=== PATIENT | male | born 1955 | race Caucasian/White ===

== ENCOUNTER 2018-12-24 11:24 | Inpatient (IN) ==
--- NOTE | 2018-12-24 11:50 | PROVIDER DOCUMENTATION ---
HPI-General Adult - General Chief Complaint: Dizziness Stated Complaint: DIZZINESS,LOW BP,DIARRHEA Time Seen by Provider: 12/24/18 11:44 Source: patient Allergies/Adverse Reactions: Patient Allergies Allergy/AdvReac Type Severity Reaction Status Date / Time bupropion [From Wellbutrin] Allergy RASH Verified 06/26/18 14:04 cephalexin monohydrate * Allergy RASH Verified 06/26/18 14:04 [From Keflex] Home Medications: Home Medication List Medication Instructions Recorded Confirmed Last Taken Type Metoprolol [Lopressor] 50 mg PO DAILY 01/18/18 01/18/18 01/17/18 16:00 History Ciclopirox Olamine [Ciclopirox] 30 gm TP BID 12 Days cream..g. 06/02/18 Unknown Rx Furosemide [Lasix] 06/02/18 Unknown History Meloxicam [Mobic] 15 mg PO DAILY #20 tab 06/26/18 Unknown Rx Past History - Adult - PAST MEDICAL HISTORY-ADULT Major Childhood Illnesses: reports: denies history Cardiovascular: reports: HTN, PVD Respiratory: reports: denies history Gastrointestinal: reports: denies history Obstetrical/Gynecological: reports: denies history Genitourinary: reports: prostate cancer Musculoskeletal: reports: denies history Neurological: reports: CVA, Seizures/Epilepsy Endocrine/Immune: reports: denies history Other Conditions: reports: denies history - PRIOR SURGERIES/PROCEDURES Surgical/Procedure History: reports: reviewed, not pertinent - IMMUNIZATION STATUS Childhood Immunizations: See Nurse Assessment Flu Vaccine: See Nurse Assessment - FAMILY HISTORY Family History: reviewed, not pertinent Progress - PLAN OF CARE/RESULTS Progress/Plan/Lab Results: Vital Signs - 8 hr 12/24/18 11:30 Temperature 98.1 F Pulse Rate 91 H Respiratory Rate 16 Blood Pressure 107/75 O2 Sat by Pulse Oximetry 98 Departure - Departure Referrals and Follow-Ups: Roger Victor MD [Primary Care Provider] - Attestation - Physician/ AYAZ Attestation Patient care was provided by Advanced Practice Provider:: Yes Advanced Practice Provider:: Josh Denton Advanced Practice Provider documentation review:: The Mid-level provider docu mentation, treatment plan and medical decision making was reviewed by the physician who agrees with all treatment and medical decision making by the P. The physician spent face to face time with patient:: No Advanced Practice Provider documentation review:: Supervising physician onsite and consulted in the evaluation and care of this patient. The physician did not have a face to face encounter with the patient.
[2018-12-24] MEDS ORDERED: NS 1,000 ML IV ONE (11:51)
--- NOTE | 2018-12-24 12:06 | Diag Imaging Result Doc PS360 ---
EXAM: CHEST-PORTABLE HISTORY: dizzy TECHNIQUE: Portable chest COMPARISON: 11/10/2017 FINDINGS: The lungs are well expanded. The heart is not enlarged. The vessels are not distended. There are no infiltrates. No effusion identified. There are multiple old rib fractures as well as prior surgery to the lower neck and right clavicle IMPRESSION: No acute abnormality Electronically signed by Ronal Flowers 12/24/2018 12:04 PM
--- NOTE | 2018-12-24 12:22 | PROVIDER DOCUMENTATION ---
This chart was entered by Kylee Mak Scribe, acting as scribe for Josh Denton CRNP. HPI-General Adult - General Chief Complaint: Dizziness Stated Complaint: DIZZINESS,LOW BP,DIARRHEA Time Seen by Provider: 12/24/18 11:44 Source: patient Allergies/Adverse Reactions: Patient Allergies Allergy/AdvReac Type Severity Reaction Status Date / Time bupropion [From Wellbutrin] Allergy RASH Verified 12/24/18 14:17 cephalexin monohydrate * Allergy RASH Verified 12/24/18 14:17 [From Keflex] Home Medications: Home Medication List Medication Instructions Recorded Confirmed Last Taken Type Metoprolol [Lopressor] 50 mg PO DAILY 01/18/18 01/18/18 01/17/18 16:00 History Ciclopirox Olamine [Ciclopirox] 30 gm TP BID 12 Days cream..g. 06/02/18 Unknown Rx Furosemide [Lasix] 06/02/18 Unknown History Meloxicam [Mobic] 15 mg PO DAILY #20 tab 06/26/18 Unknown Rx - History of Present Illness -Gen Adult Nature of Presenting Problems: Patient is a 63 year old male who presents to the ED with dizziness and blurred vision that has been present for 1 week. History of CVA and UT. States was sent to ED by PCP. Does not report headache. Location of Pain/Injury: reports: none Pain Radiation: reports: no radiation Quality of Pain: reports: none Severity: reports: mild Onset/Duration: reports: 1 week ago Timing: reports: still present Context/Activities at Onset: reports: light activity Modifying Factors: improves with: nothing Associated Symptoms: reports: dizziness, EENT symptoms (blurred vision) Similar Symptoms Previously?: Yes Recently seen or treated by another doctor?: Yes Review of Systems - Adult - REVIEW OF SYSTEMS - ADULT Constitutional: reports: no symptoms reported. denies: chills, fever, fatique Eyes: reports: see HPI, blurred vision. denies: decreased vision, double vision Ears, Nose, Mouth & Throat: reports: no symptoms reported Cardiovascular: reports: no symptoms reported Respiratory: reports: no symptoms reported Gastrointestinal: reports: no symptoms reported Genitourinary: reports: no symptoms reported Musculoskeletal: reports: no symptoms reported Integumentary: reports: no symptoms reported Neurological: reports: see HPI, dizziness/vertigo (dizziness). denies: headache/migraines, numbness, seizure, syncope Psychiatric: reports: no symptoms reported Endocrine: reports: no symptoms reported Hematologic/Lymphatic: reports: no symptoms reported Allergic/Immunologic: reports: no symptoms reported All Other Systems: Reviewed and Negative Past History - Adult - PAST MEDICAL HISTORY-ADULT Review of Records: reports: Nursing Assessment Review, Medications Reviewed, Social history reviewed & non-contributory. Major Childhood Illnesses: reports: denies history Cardiovascular: reports: HTN, UT, PVD Respiratory: reports: denies history Gastrointestinal: reports: denies history Obstetrical/Gynecological: reports: denies history Genitourinary: reports: prostate cancer Musculoskeletal: reports: denies history Neurological: reports: CVA, Seizures/Epilepsy Psychiatric: reports: denies history Endocrine/Immune: reports: denies history Other Conditions: reports: denies history - PRIOR SURGERIES/PROCEDURES Surgical/Procedure History: reports: reviewed, not pertinent, hernia repair - IMMUNIZATION STATUS Childhood Immunizations: See Nurse Assessment Flu Vaccine: See Nurse Assessment - FAMILY HISTORY Family History: reviewed, not pertinent - SOCIAL HISTORY Smoking: cigarettes, less than 1 pack/day Provider spent 3-5 mins advising pt. on dangers of tobacco.: Discussed manners to quit use, and f/u contacts for add'l counseling. Substance Use: alcohol Alcohol Use Frequency: occasionally Number of drinks per typical drinking period:: 3-4 drinks Physical Exam-General - PHYSICAL EXAM-ADULT Initial Vital Signs Reviewed: Yes - CONSTITUTIONAL General Appearance: alert, no apparent distress. negative: lethargic, slow to respond - HEAD, EARS, NOSE, MOUTH & THROAT HENMT: TM obscurred by cerumen (bilateral). negative: angioedema, hearing deficit - NECK Neck: non-tender, normal inspection. negative: tender midline - RESPIRATORY Respiratory: chest non-tender, lungs clear, normal breath sounds. negative: crackles, rales, rhonchi - CARDIOVASCULAR Cardiovascular: normal peripheral pulses, regular rate, rhythm. negative: tachycardia, systolic murmur - GASTROINTESTINAL (ABDOMEN) Abdominal Exam: normal bowel sounds, non tender, soft. negative: guarding, rebound - MUSCULOSKELETAL Extremity: non-tender, normal inspection. negative: deformity, swelling - SKIN Integumentary: normal color, normal turgor, warm/dry. negative: cyanosis, erythema, jaundice - NEUROLOGIC Neurologic: grossly normal. negative: aphasia, facial droop - PSYCHIATRIC Psych/Mental Status: normal mood/affect, oriented x 3. negative: paranoid, tearful Progress - PLAN OF CARE/RESULTS Progress/Plan/Lab Results: Vital Signs - 8 hr 12/24/18 11:30 Temperature 98.1 F Pulse Rate 91 H Respiratory Rate 16 Blood Pressure 107/75 O2 Sat by Pulse Oximetry 98 Orders Category Date Time Status FSBS [Finger Stick Blood Sugar (ED)] DIRECTED Care 12/24/18 11:50 Active Orthostatic Vital Signs NOW Care 12/24/18 11:50 Active Saline Loc NOW Care 12/24/18 11:50 Active CHEST-PORTABLE [RAD] Stat Exams 12/24/18 11:[address] HEAD W/O CONTRAST [CT] Stat Exams 12/24/18 12:11 Ordered CBC WITH ELECTRONIC DIFF [HEME] Stat Lab 12/24/18 11:50 Uncollected CK PROFILE [SP CHEM] Stat Lab 12/24/18 11:50 Uncollected COMPREHENSIVE METABOLIC PANEL [CHEM] Stat Lab 12/24/18 11:50 Uncollected PRO B-NATRIURETIC PEPTIDE Stat Lab 12/24/18 11:50 Uncollected TROPONIN T Stat Lab 12/24/18 11:50 Uncollected URINALYSIS W/POSS RFLX CULT [URINALYSIS] Stat Lab 12/24/18 11:50 Uncollected 0.9% Sodium Chloride Inj [Ns] 1,000 ml Med 12/24/18 11:51 Active IV 125 mls/hr EKG [EKG] Stat Ther 12/24/18 11:50 Ordered Laboratory Tests 12/24/18 12/24/18 12/24/18 12:47 12:47 12:47 WBC 8.85 RBC 3.93 L Hgb 14.1 Hct 37.8 L MCV 96.2 MCH 35.9 H MCHC 37.3 H RDW Std Deviation 13.2 Plt Count 106 L MPV 11.4 H Immature Gran % (Auto) 0.7 H Neut % (Auto) 65.0 Lymph % (Auto) 10.3 L [place] % (Auto) 23.8 H Eos % (Auto) 0.1 Baso % (Auto) 0.1 Immature Gran # (Auto) 0.06 H Neut # (Auto) 5.75 Lymph # (Auto) 0.91 L [place] # (Auto) 2.11 H Eos # (Auto) 0.01 Baso # (Auto) 0.01 Sodium 125 L Potassium 3.0 L Chloride 87 L Carbon Dioxide 27 Anion Gap 11 BUN 9 Creatinine 0.4 L Estimated GFR/1.73 m2 > 60 BUN/Creatinine Ratio 23 Glucose 82 Calculated Osmolality 249 Calcium 8.0 L Total Bilirubin 4.98 H AST 83 H ALT 60 H Alkaline Phosphatase 96 Creatine Kinase 208 H Creatine Kinase Index 2.7 H CK-MB (CK-2) 5.64 H Troponin T [id number] Pept 535 H Total Protein 5.5 L Albumin 2.9 L Globulin 2.6 Albumin/Globulin Ratio 1.1 Urine Source Urine Color Urine Turbidity Urine pH Ur Specific [place] Urine Protein Ur Glucose (Stick) Ur Ketones (Stick) Urine Blood Urine Nitrite Urine Bilirubin Urobilinogen Dipstick Urine Leukocytes Urine WBC (Auto) Urine RBC (Auto) U Epithel Cells (Auto) Urine Bacteria (Auto) 12/24/18 12/24/18 12:47 12:57 WBC RBC Hgb Hct MCV MCH MCHC RDW Std Deviation Plt Count MPV Immature Gran % (Auto) Neut % (Auto) Lymph % (Auto) [place] % (Auto) Eos % (Auto) Baso % (Auto) Immature Gran # (Auto) Neut # (Auto) Lymph # (Auto) [place] # (Auto) Eos # (Auto) Baso # (Auto) Sodium Potassium Chloride Carbon Dioxide Anion Gap BUN Creatinine Estimated GFR/1.73 m2 BUN/Creatinine Ratio Glucose Calculated Osmolality Calcium Total Bilirubin AST ALT Alkaline Phosphatase Creatine Kinase Creatine Kinase Index CK-MB (CK-2) Troponin T < 0.010 [id number]-Tygzpibvdze Pept Total Protein Albumin Globulin Albumin/Globulin Ratio Urine Source CLEAN CATCH Urine Color ORANGE Urine Turbidity CLEAR Urine pH 7.5 Ur Specific [place] 1.000 Urine Protein NEGATIVE Ur Glucose (Stick) NEGATIVE Ur Ketones (Stick) TRACE A Urine Blood NEGATIVE Urine Nitrite NEGATIVE Urine Bilirubin NEGATIVE Urobilinogen Dipstick 12 A Urine Leukocytes NEGATIVE Urine WBC (Auto) <10 Urine RBC (Auto) <10 U Epithel Cells (Auto) <10 Urine Bacteria (Auto) NEGATIVE Discussed results and plan of care with patient. Patient agrees with plan and verbalizes understanding. Result Diagrams: 12/24/18 12:47 12/24/18 12:47 - EKG 1 Time of EKG reading by physician:: 12:48 EKG Read and Signed by:: Bereket Marina EKG Interpretation (*Must complete 3 of following elements*): Abnormal Rate: 86 Rhythm: sinus rhythm with premature atrial complexes with aberrant conduction QRS: LBB [place] Interval: normal Comments: possible left atrial enlargement. - XRAY 1 XRAY Study: Chest ([facility] [address], [address], [place] [address] Department of Imaging Patient: JACI MANZANARES RAYADM Date: 12/24/18MR#: [id number] : 1955DM Status: PRE ERAcct#: [id number] Age/Sex: 63/MRoom/Bed: Loc: ED Ordering Physician: Josh Denton Family Ph ysician: Roger Victor MD Reason for Procedure: dizzy Signed EXAM: CHEST- PORTABLE HISTORY: dizzy TECHNIQUE: Portable chest COMPARISON: 11/10/2017 FINDINGS: The lungs are well expanded. The heart is not enlarged. The vessels are not distended. There are no infiltrates. No effusion identified. There are multiple old rib fractures as well as prior surgery to the lower neck and right clavicle IMPRESSION: No acute abnormality Electronically signed by Ronal Flowers 12/24/2018 12:04 PM 12/24/18 1204 Interpreting Physician: Ronal Flowers MD Dictated Date/Time: 12/24/18 1203 cc: Josh Denton; Roger Victor MD) XRAY Interpretation: See note - CT/MRI 1 CT Study: Head ([facility] [address], [address], [place] [address] Department of Imaging Patient: JACI MANZANARES RAYADM Date: 12/24/18MR#: [id number] : 4ADM Status: PRE ERAt#: [id number] Age/Sex: 63/MRoom/Bed: Loc: ED Ordering Physician: Josh Denton Family Physician: Roger Victor MD Reason for Procedure: dizziness Signed EXAM: CT HEAD W/O CONTRAST HISTORY: dizziness TECHNIQUE: CT head without contrast COMPARISON: 07/04/2016 FINDINGS: No parenchymal hemorrhage. No epidural or subdural hematoma. No subarachnoid hemorrhage. 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 This is unchanged from the prior study. Mild atrophy. No mass identified on this noncontrasted exam. No hydrocephalus. No sinus opacification. IMPRESSION: 1.No hemorrhage 2.Old right occipital infarct This exam was performed using automated exposure control, adjustment of mA or kV according to patient size, and/or use of iterative reconstruction technique. Electronically signed by Ronal Flowers 12/24/2018 12:36 PM 12/24/18 1236 Interpreting Physician: Ronal Flowers MD Dictated Date/Time: 12/24/18 1235 cc: Josh Denton; Roger Victor MD) CT Results: See note - CONSULTS/PCP/HOSPITALIST Notification #1 *Consult/PCP/Hospitalist*: Fatimah Colón Time Discussed: 14:24 Reason/Comments: Admission Consult Disposition: Will see in ED, Admit Departure - Departure Date of Disposition Decision: 12/24/18 Time of Disposition Decision: 14:08 DIAGNOSIS: Hyponatremia, Hypokalemia, Dehydration, Hyperbilirubinemia, Elevated liver enzymes Disposition: ADMITTED INPATIENT 09 Certified Medical Emergency: Emergent Condition: Stable Referrals and Follow-Ups: Roger Victor MD [Primary Care Provider] - - Critical Care Note This patient required my direct & personal management of CC.: No Attestation - Physician/ AYAZ Attestation Patient care was provided by Advanced Practice Provider:: Yes Advanced Practice Provider:: Josh Denton Advanced Practice Provider documentation review:: The Mid-level provider documentation, treatment plan and medical decision making was reviewed by the physician who agrees with all treatment and medical decision making by the MLP. The physician spent face to face time with patient:: No Advanced Practice Provider documentation review:: Supervising physician onsite and consulted in the evaluation and care of this patient. The physician did not have a face to face encounter with the patient. This chart was documented by the indicated scribe, (Kylee Mak Scribe) and accurately reflects the services I performed and decisions made by me, Josh Denton CRNP, as attested by the provider's signature.
--- NOTE | 2018-12-24 12:39 | Diag Imaging Result Doc PS360 ---
EXAM: CT HEAD W/O CONTRAST HISTORY: dizziness TECHNIQUE: CT head without contrast COMPARISON: 07/04/2016 FINDINGS: No parenchymal hemorrhage. No epidural or subdural hematoma. No subarachnoid hemorrhage. Old right occipital infarct with encephalomalacia. This is unchanged from the prior study. Mild atrophy. No mass identified on this noncontrasted exam. No hydrocephalus. No sinus opacification. IMPRESSION: 1.No hemorrhage 2.Old right occipital infarct This exam was performed using automated exposure control, adjustment of mA or kV according to patient size, and/or use of iterative reconstruction technique. Electronically signed by Ronal Flowers 12/24/2018 12:36 PM
--- NOTE | 2018-12-24 12:54 | EKG Report ---
Test Performed on : 12/24/2018 12:48:57 PM Test Reason : dizzy Blood Pressure : / mmHG Vent. Rate : 086 BPM Atrial Rate : 086 BPM P-R Int : 172 ms QRS Dur : 150 ms QT Int : 422 ms P-R-T Axes : 062 031 168 degrees QTc Int : 504 ms Sinus rhythm. with premature atrial complexes. with aberrant conduction. Possible Left atrial enlargement Left bundle branch block Abnormal ECG When compared with ECG of 14-DEC-2017 08:15, aberrant conduction. is now present Nonspecific T wave abnormality now evident in Inferior leads Unconfirmed Result
[2018-12-24 13:04] LABS: URINE SOURCE CLEAN CATCH
[2018-12-24 13:17] LABS: BILIRUBIN URINE NEGATIVE (NEGATIVE); BLOOD URINE NEGATIVE (NEGATIVE); COLOR ORANGE; GLUCOSE URINE NEGATIVE (NEGATIVE); KETONE URINE TRACE mg/dL (NEGATIVE); LEUKOCYTES URINE NEGATIVE (NEGATIVE); NITRITE URINE NEGATIVE (NEGATIVE); PH URINE 7.5; PROTEIN URINE NEGATIVE (NEGATIVE); TURBIDITY URINE CLEAR (CLEAR); UROBILINOGEN URINE 12 mg/dL (NORMAL)
[2018-12-24 13:18] LABS: UR EPITHELIAL CELLS <10 /HPF (<10); URINE BACTERIA NEGATIVE /HPF; URINE RBC <10 /HPF (<10); URINE WBC <10 /HPF (<10)
[2018-12-24 13:19] LABS: BASO# 0.01 X1000 (0.0-0.2); BASO% 0.1 % (0.0-0.8); EOS# 0.01 X1000 (0.0-0.7); EOS% 0.1 % (0.0-10.0); HEMATOCRIT 37.8 % (42.0-52.0); HEMOGLOBIN 14.1 g/dL (14.0-18.0); IMM GRAN# 0.06 X1000 (0.0-0.04); IMM GRAN% 0.7 % (0.0-0.5); LYMPH# 0.91 X1000 (1.2-3.4); LYMPH% 10.3 % (20.5-51.1); MCH 35.9 PG (27-31); MCHC 37.3 g/dL (33-37); MCV 96.2 FL (81-99); MONO# 2.11 X1000 (0.11-0.59); MONO% 23.8 % (1.7-9.3); MPV 11.4 FL (7.4-10.4); NEUT# 5.75 X1000 (1.4-6.5); PLT 106 X1000 (130-400); RBC 3.93 XMIL (4.7-6.1); RDW 13.2 % (11.5-14.5); WBC 8.85 X1000 (4.8-10.8)
[2018-12-24 13:25] LABS: ESTIMATED GFR > 60
[2018-12-24 13:34] LABS: AGAP 11; ALB/GLOB RATIO 1.1; ALBUMIN 2.9 g/dL (3.5-5.0); ALKALINE PHOSPHATASE 96 U/L (32-122); BUN 9 mg/dL (8-22); CHLORIDE 87 mmol/L (98-107); CK PROFILE 208 U/L (24-204); COSMO 249; CREATININE 0.4 mg/dL (0.7-1.2); GLUCOSE 82 mg/dL (70-104); GOT 83 U/L (10-34); GPT 60 U/L (10-44); SODIUM 125 mmol/L (136-145); TCO2 27 mmol/L (25-35); TOTAL BILIRUBIN 4.98 mg/dL (0.20-1.00); TOTAL PROTEIN 5.5 g/dL (6.3-8.3)
[2018-12-24 13:47] LABS: CK INDEX 2.7 (0.0-2.5); CK-MB 5.64 ng/mL (0.0-5.0)
[2018-12-24] MEDS ORDERED: KLOR-CON PO ONE (14:08)
[2018-12-24 14:50] LABS: ALLEN TEST YES; BE 2.5 mmoll (-3.0-3.0); BLOOD TYPE ARTERIAL; HCO3-(ACT) 26.8 mmoll (20.0-26.0); PCO2(98.6) 37 mmHg (35-45); PO2(98.6) 75 mmHg (60-100); SAMPLE BLOOD; pH(98.6) 7.46 (7.35-7.45)
[2018-12-24 14:51] LABS: MODALITY ROOM AIR
[2018-12-24] MEDS ORDERED: POTASSIUM CHLORIDE 20 MEQ/SWI 20 MEQ/100 ML IVPB IV SCH (15:00)
--- NOTE | 2018-12-24 15:52 | HISTORY AND PHYSICAL ---
PRIMARY CARE PHYSICIAN: Dr. Victor. CHIEF COMPLAINT: Dizziness and blurred vision x1 week that have progressively. HISTORY OF PRESENTING ILLNESS: This is a 63-year-old male, who presents to [facility] with complaints of dizziness and blurred vision for the past week that have progressively worsened. Was seen by primary care physician today and sent to the emergency room for evaluation. Workup showed a blood pressure orthostatic of lying 133/92, sitting 101/77, standing 77/50. His laboratory data showed a sodium of 125, potassium 3, chloride 87, total bilirubin was 4.98, AST of 83, ALT 68. Creatine kinase was 208 with a CK-MB of 5.64 and a negative troponin of less than 0.010. The patient states that he does drink alcohol approximately 12 beers per week, smokes a half to 1 pack of cigarettes a day and has done so for the past 20 years so he is being admitted for further evaluation and treatment. PAST MEDICAL HISTORY: CVA, [place], hypertension, peripheral vascular disease, and seizures. PAST SURGICAL HISTORY: Prostatectomy, hernia repair, and a work-related incident requiring a right wrist, right elbow, and right shoulder to have rods placed. FAMILY HISTORY: Reviewed and noncontributory. SOCIAL HISTORY: Currently lives alone. Smokes one-half to 1 pack of cigarettes a day and has done so for the past 20 years. Drinks a 12-pack of beer weekly and denied any illicit drug use. ALLERGIES: Bupropion and cephalexin. HOME MEDICATIONS: Will need to be updated, reviewed, and restarted as appropriate. We will place an order for Nursing to update and confirm home medications. DIAGNOSTIC STUDIES: White blood cell count of 8.85, hemoglobin 14.1, hematocrit 37.8, platelets 106,000. Sodium 125, potassium 3, chloride 87, CO2 of 27, BUN of 9, creatinine 0.4, glucose 82, total bilirubin of 4.98, AST of 83, ALT 62. Creatine kinase of 208, CK-MB of 5.64, troponin of less than 0.010. ProBNP of 535. Urinalysis was negative. CT of the head showed no hemorrhage and the old right occipital infarct. Chest x-ray showed no acute abnormality. EKG showed sinus rhythm with premature atrial complex with an aberrant conduction at 86. REVIEW OF SYSTEMS: He denied any fever, chills. He has had blurred vision, dizziness, felt lightheaded. Denied any chest pain, coughing, shortness of breath. Denied any abdominal pain, constipation, diarrhea, or burning or hurting with urination history. PHYSICAL EXAMINATION: VITAL SIGNS: On arrival he had a temperature of 98.1 degrees, a pulse of 91, respirations 16, blood pressure 107/75, saturating 98% on room air. We checked orthostatic blood pressures that showed a lying of 133/92 with a pulse of 93, sitting 101/70 with a pulse of 92, standing 77/50 with a pulse of 98. GENERAL: This is a 63-year-old male, who is sitting up in the bed and answers questions appropriately. HEMNT: Normocephalic, atraumatic. Normal ENT inspection. Oropharynx and nares are clear. EYES: Pupils are equal, round, and reactive to light and accommodation. Extraocular movements are intact. NECK: Normal inspection. Normal range of motion. LUNGS: Clear to auscultation bilaterally with equal lung expansion and chest wall movement. HEART: With regular rate and rhythm. No murmurs, rubs, or gallops. ABDOMEN: Soft, nontender, nondistended. Bowel sounds are present x4 quadrants. MUSCULOSKELETAL: He has 4/5 strength x4 extremities. NEUROLOGICAL: The cranial nerves 2 through 12 appear grossly intact. ASSESSMENT: 1. Orthostatic hypotension. 2. Hyponatremia. 3. Hypokalemia. 4. Elevated liver function tests. 5. Ethanol abuse. 6. Tobacco abuse. PLAN: He will be admitted to the medical unit. We will place him on telemetry. O2 per protocol. Healthy heart diet. We are going to give him potassium chloride 20 mEq IV now and then repeat in [address] him on normal saline at [address] him on Tylenol 650 p.o. q.6 h. p.r.n., Zofran 4 mg IV q.4 h. p.r.n. Apply SCDs for DVT prophylaxis. I am going to place him on Ativan 1 mg IV q.4 h. p.r.n. for any alcohol withdrawal and recheck a CBC and a CMP in the a.m. Further orders after being seen by attending. Dictated by HAILEY Roth for Paul Colón MD cc: MD Fatimah Yousif CRNP Clement Okinedo, MD Patient seen and evaluated by me. I agree with the assessment and plan of the HAILEY. Dr. Colón. [facility]
[2018-12-24] MEDS ORDERED: TYLENOL PO PRN (16:01)
[2018-12-24] MEDS ORDERED: ATIVAN IV PRN (16:01)
[2018-12-24] MEDS ORDERED: ZOFRAN IV PRN (16:01)
[2018-12-24] MEDS: NS 1,000 ML IV SCH ×2 (18:14→23:19)
[2018-12-24] MEDS: POTASSIUM CHLORIDE 20 MEQ/SWI 20 MEQ/100 ML IVPB IV SCH (23:49)
[2018-12-25] MEDS: NS 1,000 ML IV SCH ×3 (00:18→17:08)
[2018-12-25] MEDS: POTASSIUM CHLORIDE 20 MEQ/SWI 20 MEQ/100 ML IVPB IV SCH ×3 (04:01→20:46)
[2018-12-25 07:23] LABS: BASO# 0.01 X1000 (0.0-0.2); BASO% 0.1 % (0.0-0.8); EOS# 0.05 X1000 (0.0-0.7); EOS% 0.6 % (0.0-10.0); HEMATOCRIT 34.5 % (42.0-52.0); HEMOGLOBIN 12.5 g/dL (14.0-18.0); IMM GRAN# 0.02 X1000 (0.0-0.04); IMM GRAN% 0.2 % (0.0-0.5); LYMPH# 1.26 X1000 (1.2-3.4); LYMPH% 15.7 % (20.5-51.1); MCH 35.6 PG (27-31); MCHC 36.2 g/dL (33-37); MCV 98.3 FL (81-99); MONO# 2.29 X1000 (0.11-0.59); MONO% 28.6 % (1.7-9.3); MPV 10.8 FL (7.4-10.4); NEUT# 4.38 X1000 (1.4-6.5); NEUT% 54.8 % (42.2-75.2); PLT 106 X1000 (130-400); RBC 3.51 XMIL (4.7-6.1); RDW 13.2 % (11.5-14.5); WBC 8.01 X1000 (4.8-10.8)
[2018-12-25 07:42] LABS: AGAP 9; ALBUMIN 2.4 g/dL (3.5-5.0); ALKALINE PHOSPHATASE 80 U/L (32-122); BUN 8 mg/dL (8-22); CALCIUM 7.5 mg/dL (8.8-10.2); CHLORIDE 96 mmol/L (98-107); COSMO 260; CREATININE 0.3 mg/dL (0.7-1.2); ESTIMATED GFR > 60; GLUCOSE 86 mg/dL (70-104); GOT 67 U/L (10-34); GPT 52 U/L (10-44); POTASSIUM 3.3 mmol/L (3.5-5.1); SODIUM 131 mmol/L (136-145); TCO2 26 mmol/L (25-35); TOTAL BILIRUBIN 3.64 mg/dL (0.20-1.00); TOTAL PROTEIN 4.7 g/dL (6.3-8.3)
[2018-12-25 08:11] LABS: LYMPHS 26 % (21-51); MONO 8 % (1-9); SEGS 64 % (42-75)
--- NOTE | 2018-12-25 15:19 | PROGRESS NOTE ---
DATE: 12/25/2018 SUBJECTIVE: Patient is awake. Sitting in a chair. Not in any obvious distress. OBJECTIVE: Vital signs: Temperature is 98 degrees, pulse 84, respiratory 16, blood pressure 117/78, oxygen saturation is 97%. HEENT: Patient is atraumatic, normocephalic. Cardiovascular system: S1, S2. Respiratory system: Occasional rhonchi noted. Abdomen: Soft, nontender. No masses felt. Extremities: No evidence of edema. Central nervous system: No obvious focal deficit noted. LABORATORY DATA: WBC is 8.01, hematocrit is 34.5, with a platelet count of 106,000. Sodium is 131, potassium is 3.3, chloride is 96, bicarb 26, BUN is 8, creatinine 0.3. ALT 52. ASSESSMENT AND PLAN: 1. Orthostatic hypertension, probably secondary to volume depletion. The patient had been on Lasix as well as metoprolol prior to admission. Currently receiving intravenous fluids. He is on normal saline at 120 mL/h for volume expansion. 2. Alcoholism. Maintain patient on delirium tremens prophylaxis, thiamine, folic acid, as well as multivitamin. Check magnesium and phosphorus levels and replace those if low. 3. Hypokalemia. Replace potassium level. 4. Hyponatremia. This is improving. Will just continue to follow the patient's sodium level. 5. Abnormal liver function test. Probably related to alcoholism. We will check hepatitis panel, DEANN level, ferritin level, abdominal ultrasound as well. 6. Deep vein thrombosis prophylaxis. SCDs. 7. Gastrointestinal prophylaxis. PPI. cc: Paul Colón MD MTDD
[2018-12-25] MEDS ORDERED: NICODERM PATCH TD PRN (15:20)
--- NOTE | 2018-12-25 17:32 | Diag Imaging Result Doc PS360 ---
EXAM: US ABDOMEN-COMPLETE INDICATION: abn lfts COMPARISON: 03/13/2016 FINDINGS: The gallbladder is contracted. No discrete gallstones or pericholecystic fluid is identified. The common bile duct is normal in diameter. Sonographic Morales's sign was reported to be negative. The liver echotexture is diffusely increased and exhibits poor acoustic penetration indicating hepatic steatosis. No discrete hepatic mass is identified. Portal venous flow is hepatopetal. The pancreas is obscured by bowel gas. The proximal aorta is obscured. The remainder of the aorta and IVC are unremarkable. The spleen is unremarkable. The kidneys are grossly unremarkable. IMPRESSION: Suggestion of hepatic steatosis. Electronically signed by Payam Velasco 12/25/2018 5:30 PM
[2018-12-26] MEDS: NS 1,000 ML IV SCH ×3 (01:25→19:59)
[2018-12-26 07:59] LABS: BASO# 0.03 X1000 (0.0-0.2); BASO% 0.4 % (0.0-0.8); EOS# 0.06 X1000 (0.0-0.7); EOS% 0.9 % (0.0-10.0); HEMATOCRIT 35.3 % (42.0-52.0); HEMOGLOBIN 12.6 g/dL (14.0-18.0); IMM GRAN# 0.02 X1000 (0.0-0.04); IMM GRAN% 0.3 % (0.0-0.5); LYMPH# 1.25 X1000 (1.2-3.4); LYMPH% 17.7 % (20.5-51.1); MCH 35.6 PG (27-31); MCHC 35.7 g/dL (33-37); MCV 99.7 FL (81-99); MONO# 1.83 X1000 (0.11-0.59); MPV 10.8 FL (7.4-10.4); NEUT# 3.86 X1000 (1.4-6.5); NEUT% 54.7 % (42.2-75.2); PLT 126 X1000 (130-400); RBC 3.54 XMIL (4.7-6.1); RDW 13.3 % (11.5-14.5); WBC 7.05 X1000 (4.8-10.8)
[2018-12-26 08:02] LABS: AGAP 8; ALBUMIN 2.5 g/dL (3.5-5.0); ALKALINE PHOSPHATASE 85 U/L (32-122); BUN 5 mg/dL (8-22); CALCIUM 7.5 mg/dL (8.8-10.2); CHLORIDE 98 mmol/L (98-107); COSMO 259; CREATININE 0.3 mg/dL (0.7-1.2); ESTIMATED GFR > 60; GLUCOSE 83 mg/dL (70-104); GOT 89 U/L (10-34); GPT 67 U/L (10-44); MAGNESIUM 1.6 mg/dL (1.5-2.7); PHOSPHORUS 2.2 mg/dL (2.7-4.5); POTASSIUM 3.6 mmol/L (3.5-5.1); SODIUM 131 mmol/L (136-145); TCO2 25 mmol/L (25-35); TOTAL BILIRUBIN 2.68 mg/dL (0.20-1.00); TOTAL PROTEIN 4.9 g/dL (6.3-8.3)
[2018-12-26 08:33] LABS: LYMPHS 16 % (21-51); MONO 6 % (1-9); SEGS 70 % (42-75)
[2018-12-26 12:37] LABS: HEPATITIS PROFILE ACUTE SEE COMMENTS
--- NOTE | 2018-12-26 18:25 | PROGRESS NOTE ---
DATE: 12/26/2018 SUBJECTIVE: The patient is resting in bed. He has family present in the room. OBJECTIVE: Vital signs: Temperature 97.9 degrees, pulse 81, respiratory rate 16, blood pressure 118/75, oxygen saturation is 100%. HEENT: Atraumatic, normocephalic. Cardiovascular system: S1, S2. Muffled heart sounds. Respiratory system: Rhonchi noted. Abdomen is soft, nontender. No masses felt. Extremities have 1+ edema in the lower extremities. Central nervous system: No focal deficit noted. LABORATORY DATA: WBC 7.05, hematocrit is 35.3 with a platelet count of 126,000. Sodium is 131, potassium 3.6, chloride 98, bicarbonate is 25, BUN is 5, creatinine 0.3. ASSESSMENT AND PLAN: 1. Orthostatic hypotension secondary to volume depletion. The patient has been receiving intravenous fluids. I will cut down fluid to about 50 mL/h. 2. Alcoholism. Maintain patient on delirium tremens prophylaxis. Thiamine, folic acid as well as multivitamin. 3. Hypokalemia. Replace potassium level. 4. Hyponatremia. Follow up on sodium level. 5. Abnormal liver function tests. Abdominal ultrasound shows evidence of hepatic steatosis. DEANN level as well as hepatitis panel pending. 6. Deep vein thrombosis prophylaxis. Sequential compression devices. 7. Gastrointestinal prophylaxis. Proton pump inhibitor. cc: Paul Colón MD
[2018-12-27] MEDS: NS 1,000 ML IV SCH (15:02)
--- NOTE | 2018-12-27 15:41 | PROGRESS NOTE ---
DATE: 12/27/2018 SUBJECTIVE: The patient is resting in bed. No new complaints. OBJECTIVE: Vital signs: Vital signs are as follows: Temperature 98.1 degrees, pulse 86, respirations 18, blood pressure 151/74, oxygenation 100%. HEENT: Atraumatic, normocephalic. Cardiovascular System: Distant heart sounds. Respiratory System: Has evidence of rhonchi in both lung esteves. Abdomen: Soft, nontender. No masses felt. Extremities: No significant edema noted in the lower extremities. Central nervous system: No obvious focal deficits noted. LABS: None. ASSESSMENT AND PLAN: 1. Orthostatic hypertension secondary to volume depletion. The patient seemed to have improved. Continue intravenous hydration. 2. Alcoholism. Maintain patient on delirium tremens prophylaxis, thiamine, folic acid, as well as multivitamin. 3. Hypokalemia. Improved. 4. Hyponatremia. Follow up on sodium level. The patient is currently on intravenous normal saline. 5. Abnormal liver function tests, most likely secondary to the effect of alcohol. Ultrasound shows evidence of hepatic steatosis. 6. Deep vein thrombosis prophylaxis. Sequential compression devices. 7. Gastrointestinal prophylaxis. Proton pump inhibitor. 8. Deconditioning. I recommend physical therapy. cc: Paul Colón MD
[2018-12-28] MEDS: NS 1,000 ML IV SCH ×2 (04:48→10:45)
[2018-12-28] MEDS: VITAMIN B-1 PO SCH (10:44)
[2018-12-28] MEDS: FOLIC ACID PO SCH (10:44)
[2018-12-28] MEDS: CENTRUM SILVER PO SCH (10:44)
--- NOTE | 2018-12-28 13:11 | PROGRESS NOTE ---
DATE: 12/28/2018 SUBJECTIVE: Today, Mr. Velasco refers to be doing fairly okay. He seems to be hallucinating some, even in the room he was calling [employer] when there was really nobody there. OBJECTIVE: Vital signs: Blood pressure 127/84, pulse is 87, respirations 17, temperature 98.1 degrees. General: Mr. Velasco is a 63-year-old male, he was in bed, in no distress. HEENT: Mucosa is pink and moist. Anicteric. Acyanotic. Neck: Supple. Chest: Air entry is bilaterally reduced, a few expiratory rhonchi bilaterally, but no other major findings. Cardiovascular: Regular rate and rhythm. Abdomen: Soft. Nontender. Extremities: No pedal edema. SOCIAL SERVICE COORDINATOR: The patient is awake, alert, and oriented to person and to place, disoriented to time. LABORATORY DATA: None for today. CURRENT MEDICATIONS: The patient's current medications have also been reviewed. He is still on the IV fluids. We are going to add Librium and gabapentin to prevent alcohol withdrawal. ASSESSMENT: 1. Orthostatic hypotension on presentation, improved. 2. Alcohol abuse, with alcohol-induced hepatitis on presentation. We will follow up on the labs. 3. Hyponatremia, presumably due to dehydration and medication-induced (hydrochlorothiazide and furosemide). 4. Protein calorie malnutrition. Continue with supplements. 5. Generalized weakness. PT is on board. 6. Multiple previous rib fractures, likely due to alcohol intoxication and trauma. In general, Mr. Velasco was remarkably hypotensive on presentation, which could be multifactorial including medications, alcohol, and dehydration. He seems to be getting better. We will continue with the current IV fluids. Hydrochlorothiazide, metoprolol, and furosemide have all be withheld. We will trend his labs tomorrow morning and see where we are and correct the necessary abnormality as needed. We will also get Physical Therapy to start working with him. Hopefully by tomorrow or the day after we can get Mr. Velasco home. cc: Dave Marcus MD [facility]
[2018-12-28] MEDS: LIBRIUM PO SCH ×2 (18:23→20:26)
[2018-12-28] MEDS: NEURONTIN PO SCH (20:26)
[2018-12-29] MEDS: NS 1,000 ML IV SCH ×2 (01:16→21:23)
[2018-12-29 07:42] LABS: BASO# 0.06 X1000 (0.0-0.2); BASO% 0.6 % (0.0-0.8); EOS# 0.17 X1000 (0.0-0.7); EOS% 1.7 % (0.0-10.0); HEMATOCRIT 32.7 % (42.0-52.0); HEMOGLOBIN 11.6 g/dL (14.0-18.0); IMM GRAN# 0.17 X1000 (0.0-0.04); IMM GRAN% 1.7 % (0.0-0.5); LYMPH# 1.86 X1000 (1.2-3.4); MCH 35.4 PG (27-31); MCHC 35.5 g/dL (33-37); MCV 99.7 FL (81-99); MONO# 3.05 X1000 (0.11-0.59); MONO% 31.1 % (1.7-9.3); MPV 10.4 FL (7.4-10.4); NEUT% 45.9 % (42.2-75.2); PLT 237 X1000 (130-400); RBC 3.28 XMIL (4.7-6.1); RDW 13.4 % (11.5-14.5); WBC 9.81 X1000 (4.8-10.8)
[2018-12-29 07:48] LABS: AGAP 7; ALBUMIN 2.4 g/dL (3.5-5.0); ALKALINE PHOSPHATASE 94 U/L (32-122); BUN 3 mg/dL (8-22); CHLORIDE 99 mmol/L (98-107); COSMO 266; CREATININE 0.3 mg/dL (0.7-1.2); ESTIMATED GFR > 60; GLUCOSE 82 mg/dL (70-104); GOT 51 U/L (10-34); GPT 63 U/L (10-44); POTASSIUM 3.2 mmol/L (3.5-5.1); SODIUM 135 mmol/L (136-145); TCO2 29 mmol/L (25-35); TOTAL BILIRUBIN 1.19 mg/dL (0.20-1.00); TOTAL PROTEIN 4.9 g/dL (6.3-8.3)
[2018-12-29 08:29] LABS: BANDS 2 % (0-1); EOS 2 % (1-10); LARGE PLATELETS 1+; LYMPHS 24 % (21-51); MONO 20 % (1-9); SEGS 48 % (42-75)
[2018-12-29] MEDS: NEURONTIN PO SCH ×2 (10:25→20:06)
[2018-12-29] MEDS: FOLIC ACID PO SCH (10:25)
[2018-12-29] MEDS: LIBRIUM PO SCH ×2 (10:25→20:06)
[2018-12-29] MEDS: VITAMIN B-1 PO SCH (10:25)
[2018-12-29] MEDS: CENTRUM SILVER PO SCH (10:25)
[2018-12-29] MEDS ORDERED: KLOR-CON PO ONE (14:55)
--- NOTE | 2018-12-29 15:11 | PROGRESS NOTE ---
DATE: 12/29/2018 SUBJECTIVE: Patient is awake, sitting on the side of the bed. Not in any obvious distress. OBJECTIVE: Vital Signs: Temperature 98.9 degrees, pulse 86, respiratory rate is 19, blood pressure is 108/70, oxygen saturation is 98%. HEENT: Atraumatic, normocephalic. Cardiovascular System: Distant heart sounds. Respiratory System: Has occasional rhonchi in both lung esteves. Abdomen: Soft, nontender. No masses felt. Extremities: Edema present in the lower extremities. Central Nervous System: No obvious focal deficits noted. Labs: WBCs 9.81, hematocrit 32.7, with a platelet count of 237,000. Sodium is 135, potassium 3.2, chloride is 99, bicarb 29, BUN is 3, creatinine 0.3. ASSESSMENT AND PLAN: 1. Orthostatic hypotension secondary to volume depletion. Continue intravenous hydration. 2. Alcoholism. Maintain patient on delirium tremens prophylaxis along with thiamine, folic acid, as well as multivitamin. 3. Hypokalemia. Replace potassium level. 4. Hyponatremia. This has improved. 5. Abnormal liver function tests, most likely secondary to the effect of alcohol. Abdominal ultrasound shows evidence of hepatic steatosis. 6. Deep vein thrombosis prophylaxis. Sequential compression devices. 7. Gastrointestinal prophylaxis. Proton pump inhibitor. 8. Deconditioning. Physical therapy recommended. 9. Disposition. The patient can possibly go home tomorrow, 12/30/2018, with home health services. cc: Paul Colón MD
[2018-12-30 07:14] LABS: BASO# 0.19 X1000 (0.0-0.2); BASO% 1.7 % (0.0-0.8); EOS# 0.27 X1000 (0.0-0.7); EOS% 2.5 % (0.0-10.0); HEMATOCRIT 32.2 % (42.0-52.0); IMM GRAN# 0.34 X1000 (0.0-0.04); IMM GRAN% 3.1 % (0.0-0.5); LYMPH# 2.28 X1000 (1.2-3.4); MCH 34.6 PG (27-31); MCHC 34.2 g/dL (33-37); MCV 101.3 FL (81-99); MONO# 2.91 X1000 (0.11-0.59); MONO% 26.7 % (1.7-9.3); MPV 10.2 FL (7.4-10.4); NEUT# 4.89 X1000 (1.4-6.5); PLT 304 X1000 (130-400); RBC 3.18 XMIL (4.7-6.1); RDW 13.9 % (11.5-14.5); WBC 10.88 X1000 (4.8-10.8)
[2018-12-30 07:34] LABS: AGAP 5; ALB/GLOB RATIO 0.8; ALBUMIN 2.2 g/dL (3.5-5.0); ALKALINE PHOSPHATASE 118 U/L (32-122); BUN 5 mg/dL (8-22); CALCIUM 7.6 mg/dL (8.8-10.2); CHLORIDE 100 mmol/L (98-107); COSMO 267; CREATININE 0.4 mg/dL (0.7-1.2); ESTIMATED GFR > 60; GLUCOSE 92 mg/dL (70-104); GOT 37 U/L (10-34); GPT 52 U/L (10-44); MAGNESIUM 1.4 mg/dL (1.5-2.7); PHOSPHORUS 3.9 mg/dL (2.7-4.5); POTASSIUM 3.5 mmol/L (3.5-5.1); SODIUM 135 mmol/L (136-145); TCO2 30 mmol/L (25-35); TOTAL BILIRUBIN 0.92 mg/dL (0.20-1.00); TOTAL PROTEIN 4.9 g/dL (6.3-8.3)
[2018-12-30 07:39] LABS: BANDS 6 % (0-1); EOS 2 % (1-10); LYMPHS 28 % (21-51); MONO 8 % (1-9); SEGS 56 % (42-75)
[2018-12-30] MEDS: CENTRUM SILVER PO SCH (09:02)
[2018-12-30] MEDS: VITAMIN B-1 PO SCH (09:02)
[2018-12-30] MEDS: NEURONTIN PO SCH (09:02)
[2018-12-30] MEDS: FOLIC ACID PO SCH (09:02)
[2018-12-30] MEDS: LIBRIUM PO SCH (09:02)
[2018-12-30 15:37] VITALS: BP 119/74
--- NOTE | 2018-12-30 16:47 | DISCHARGE SUMMARY ---
DATE: 12/30/2018 PRINCIPAL DIAGNOSIS: Orthostatic hypotension, which is now improved. SECONDARY DIAGNOSIS: 1. Alcoholism. 2. Tobacco use history. 3. Abnormal liver function tests. 4. Hypokalemia. 5. Hyponatremia. 6. Hepatic steatosis. 7. History of multiple previous rib fractures likely secondary to alcoholic intoxication and trauma. DISCHARGE MEDICATIONS: Include the followin. Multivitamin 1 p.o. daily. 2. Folic acid 1 mg p.o. daily. 3. Metoprolol 25 mg p.o. once a day. 4. Thiamine 100 mg p.o. daily. CONSULTATIONS DONE DURING THIS HOSPITAL STAY: None. SPECIAL PROCEDURES DONE DURING THIS HOSPITAL STAY: Head CT 12/24/2018. HOSPITAL COURSE: Mr. Kiran Velasco is a 63-year-old male who presented to the hospital because of dizziness and blurred vision. Head CT was unremarkable for any acute lesion. The patient was diagnosed as having orthostatic hypotension and was maintained on intravenous fluids. He was also found to have number of electrolyte abnormalities including hyponatremia as well as hypokalemia. This will be managed conservatively. Liver function tests noted to be abnormal which was thought to be secondary to alcoholism. Abdominal ultrasound showed evidence of hepatic steatosis. During the course of the hospital stay, the patient was maintained on [*]prophylaxis along with thiamine and folic acid, as well as multivitamin. At this time, he has done fairly well. He is stable. PHYSICAL EXAMINATION: Vital Signs: During my evaluation today, vital signs were as follows: Temperature 98.8 degrees, pulse 87, blood pressure is 125/76, oxygen saturation is 100%. Of note, just prior to discharge, we got a temperature 99.7 degrees, HEENT: Atraumatic, normocephalic. Cardiovascular: Distant heart sounds. Respiratory: Occasional rhonchi. Abdomen: Soft, nontender. No masses felt. Extremities: Edema present. Central nervous system: No obvious focal deficit. LABORATORY DATA: WBC 10.8, hematocrit 32.2 with a platelet count of 304,000. Chemistry: Sodium is 135, potassium 3.5, chloride is 100, bicarb is 30, BUN is 5, creatinine 0.4. PLAN: Discharge home today. Take discharge medications as noted above. In light of a low-grade fever just prior to discharge, we will get a chest x-ray. Urine culture as well as blood cultures prior to discharge. The patient will need to follow up with primary physician, [*]and he will be going home with home health services. cc: Paul Colón MD
--- NOTE | 2018-12-30 18:19 | Diag Imaging Result Doc PS360 ---
CHEST-1 VIEW - 12/30/2018 INDICATION: fever COMPARISON: 12/24/2018 FINDINGS: Lung volumes are lower. There is dense infiltrate in the left lower lobe. Heart size is probably top normal. No pneumothorax or pleural effusion. IMPRESSION: Dense left lower lobe infiltrate/pneumonia. Electronically signed by Duran Parker 12/30/2018 6:17 PM
== END 2018-12-30 17:47 | disposition home health service (06) | DRG 641 ==
LOC: ED 11:24 → SUATTDRO 15:15 → 3N 15:15
PROVIDERS: ATTEND Internal Medicine
CPT/HCPCS: 70450; 71010; 71045; 76700; 80053; 80074; 81001; 82550; 82553; 82805; 82948; 83735; 83880; 84100; 84484; 85025; 86038; 86039; 87040; 87077; 87088; 87186; 93005; 97116; 97161; 97530; 99285; A9270; J2060; J3480; J7030; XXXXX

== ENCOUNTER 2019-06-11 07:04 | Inpatient (IN) ==
--- NOTE | 2019-06-11 06:58 | PROVIDER DOCUMENTATION ---
HPI-General Adult - General Chief Complaint: Shortness of Breath Stated Complaint: Dizziness Time Seen by Provider: 06/11/19 06:50 Source: patient, EMS Allergies/Adverse Reactions: Patient Allergies Allergy/AdvReac Type Severity Reaction Status Date / Time bupropion [From Wellbutrin] Allergy RASH Verified 01/31/19 10:25 cephalexin monohydrate * Allergy RASH Verified 01/31/19 10:25 [From Keflex] Home Medications: Home Medication List Medication Instructions Recorded Confirmed Last Taken Type Folic Acid 1 mg PO DAILY tab 12/30/18 06/11/19 1 Day Ago Rx ~06/10/19 Metoprolol [Lopressor] 25 mg PO DAILY #30 tab 12/30/18 06/11/19 1 Day Ago Rx ~06/10/19 Multivitamins/Minerals [Centrum 1 ea PO DAILY tab 12/30/18 06/11/19 1 Day Ago R x Silver] ~06/10/19 Thiamine [Vitamin B-1] 100 mg PO DAILY tab 12/30/18 06/11/19 1 Day Ago Rx ~06/10/19 Furosemide 20 mg PO DAILY 05/11/19 06/11/19 1 Day Ago History ~06/10/19 Potassium Chloride [Klor-Con 10] 10 mg PO DAILY 05/11/19 06/11/19 1 Day Ago History ~06/10/19 Rivaroxaban [Xarelto] 1 mg PO DAILY 05/11/19 06/11/19 1 Day Ago History ~06/10/19 Trazodone [Desyrel] 50 mg PO HS 05/11/19 06/11/19 1 Day Ago History ~06/10/19 - History of Present Illness -Gen Adult Nature of Presenting Problems: Presents to the with multiple vague complaints. patient states that he has been feeling SOB and dizzy since late last night. he states around 3am he got up to go the bathroom and almost fell. He states that his mouth is very dry. He endorses 2 episodes of watery diarrhea. He thinks that he had a temp last night but did not take his temp. No family at bedside. Patient smells like alcohol and has a tremor. Review of Systems - Adult - REVIEW OF SYSTEMS - ADULT ROS:: vague historian Constitutional: reports: see HPI, chills Eyes: reports: no symptoms reported Ears, Nose, Mouth & Throat: reports: no symptoms reported Cardiovascular: reports: no symptoms reported Respiratory: reports: see HPI, shortness of breath Gastrointestinal: reports: see HPI, diarrhea, nausea Genitourinary: reports: no symptoms reported Musculoskeletal: reports: no symptoms reported Integumentary: reports: no symptoms reported Neurological: reports: see HPI, dizziness/vertigo, loss of balance Psychiatric: reports: no symptoms reported Endocrine: reports: no symptoms reported Hematologic/Lymphatic: reports: no symptoms reported Allergic/Immunologic: reports: no symptoms reported All Other Systems: Reviewed and Negative Past History - Adult - PAST MEDICAL HISTORY-ADULT Review of Records: reports: Old Records Reviewed Major Childhood Illnesses: reports: denies history Cardiovascular: reports: HTN, MT, PVD Respiratory: reports: denies history Gastrointestinal: reports: denies history Obstetrical/Gynecological: reports: denies history Genitourinary: reports: prostate cancer Musculoskeletal: reports: denies history Neurological: reports: CVA, Seizures/Epilepsy Psychiatric: reports: denies history Endocrine/Immune: reports: denies history Other Conditions: reports: denies history - PRIOR SURGERIES/PROCEDURES Surgical/Procedure History: reports: reviewed, not pertinent, hernia repair - IMMUNIZATION STATUS Childhood Immunizations: See Nurse Assessment Flu Vaccine: See Nurse Assessment - FAMILY HISTORY Family History: reviewed, not pertinent Physical Exam-General - PHYSICAL EXAM-ADULT Initial Vital Signs Reviewed: Yes - CONSTITUTIONAL General Appearance: alert, mild distress, anxious, other (tremors) - EYES Eyes: PERRL/EOMI - HEAD, EARS, NOSE, MOUTH & THROAT HENMT: normocephalic/atraumatic, other (dry mucous membranes) - NECK Neck: non-tender, full range of motion, supple, normal inspection - RESPIRATORY Respiratory: chest non-tender, accessory muscle use, wheezing, increased rate - CARDIOVASCULAR Cardiovascular: normal peripheral pulses, regular rate, rhythm, no murmur - GASTROINTESTINAL (ABDOMEN) Abdominal Exam: normal bowel sounds, non tender, soft - MUSCULOSKELETAL Back Exam: normal inspection Extremity: normal range of motion - SKIN Integumentary: warm/dry, pallor - NEUROLOGIC Neurologic: other (resting tremor, difficult to assess due to patient cooperation) - PSYCHIATRIC Psych/Mental Status: normal mood/affect, oriented x 3 Progress - PLAN OF CARE/RESULTS Progress/Plan/Lab Results: Vital Signs - 8 hr 06/11/19 06:43 Temperature 98.5 F Pulse Rate 108 H Respiratory Rate 16 Blood Pressure 174/97 O2 Sat by Pulse Oximetry 97 Result Diagrams: 06/11/19 07:00 06/11/19 07:00 - REASSESSMENT Reassessment #1 Time Reassessed: 09:01 Status: unchanged (DISCUSSED WITH DR ANTOINE, UTI, LACTIC ACIDOSIS, TREMORS, POSSIBLE ALC WITHDRAWAL DEPENDING ON AMOUNT AND CHRONICITY OF BEER DRINGKING(8BEERS IN 4 DAYS PER PT).LONG cQT PRESENT ELEV LFTs.) - CONSULTS/PCP/HOSPITALIST Notification #1 *Consult/PCP/Hospitalist*: DR Uche ANTOINE Time Discussed: 08:58 Consult Disposition: Admit (WILL CHOOSE ANTIBIOTIC) - CHANGE OF SHIFT REPORT (ED Provider) 1 Report Given and Care Transferred to:: Dr Scherer Time of Transfer: 07:00 Items Pending: Labs, XRAY Results, CT/MRI Results Departure - Departure Date of Disposition Decision: 06/11/19 Time of Disposition Decision: 08:59 DIAGNOSIS: UTI (urinary tract infection), Lactic acidosis, Weakness, Long QT interval Disposition: ADMITTED INPATIENT 09 Certified Medical Emergency: Emergent Condition: Fair - Critical Care Note This patient required my direct & personal management of CC.: Yes Total Time (mins): 30 Critical Care Statement: This patient required my direct personal management to treat or rule out processes, the absence of which, could potentiallly result in sudden, clinically significant life or limb threatening deterioration. Attestation - Physician/ AYAZ Attestation Patient care was provided by Advanced Practice Provider:: No The physician spent face to face time with patient:: Yes Advanced Practice Provider documentation review:: Supervising physician onsite and consulted in the evaluation and care of this patient. The physician did have a face to face encounter with the patient.
[~2019-06-11 07:04] MED LIST: DUONEB (A & A) INH ONE; PULMICORT INH ONE; SOLU-MEDROL IV ONE
[2019-06-11 07:30] LABS: BASO# 0.02 X1000 (0.0-0.2); BASO% 0.5 % (0.0-0.8); EOS# 0.02 X1000 (0.0-0.7); EOS% 0.5 % (0.0-10.0); HEMATOCRIT 39.8 % (42.0-52.0); HEMOGLOBIN 13.5 g/dL (14.0-18.0); IMM GRAN# 0.01 X1000 (0.0-0.04); IMM GRAN% 0.2 % (0.0-0.5); LYMPH# 1.09 X1000 (1.2-3.4); LYMPH% 24.6 % (20.5-51.1); MCH 34.2 PG (27-31); MCHC 33.9 g/dL (33-37); MCV 100.8 FL (81-99); MONO# 0.87 X1000 (0.11-0.59); MONO% 19.6 % (1.7-9.3); NEUT# 2.42 X1000 (1.4-6.5); NEUT% 54.6 % (42.2-75.2); PLT 115 X1000 (130-400); RBC 3.95 XMIL (4.7-6.1); RDW 14.6 % (11.5-14.5); WBC 4.43 X1000 (4.8-10.8)
[2019-06-11 07:31] LABS: INR 1.07; PROTIME 14.5 Seconds (11.0-16.0)
[2019-06-11 07:32] LABS: PTT 34.9 Seconds (22.3-41.8)
[2019-06-11 07:39] LABS: AGAP 12; ALBUMIN 2.8 g/dL (3.5-5.0); ALKALINE PHOSPHATASE 163 U/L (32-122); BUN 2 mg/dL (8-22); CALCIUM 7.9 mg/dL (8.8-10.2); CHLORIDE 96 mmol/L (98-107); COSMO 263; CREATININE 0.4 mg/dL (0.7-1.2); ESTIMATED GFR > 60; GLUCOSE 79 mg/dL (70-104); GOT 155 U/L (10-34); GPT 48 U/L (10-44); POTASSIUM 3.5 mmol/L (3.5-5.1); SODIUM 134 mmol/L (136-145); TCO2 26 mmol/L (25-35); TOTAL PROTEIN 5.9 g/dL (6.3-8.3)
[2019-06-11 07:46] LABS: BILIRUBIN URINE NEGATIVE (NEGATIVE); BLOOD URINE NEGATIVE (NEGATIVE); CLARITY CLEAR (CLEAR); COLOR YELLOW; GLUCOSE URINE NEGATIVE (NEGATIVE); KETONE URINE TRACE mg/dL (NEGATIVE); LEUKOCYTES URINE TRACE (NEGATIVE); NITRITE URINE POSITIVE (NEGATIVE); PH URINE 6.5; PROTEIN URINE TRACE mg/dL (NEGATIVE); SP GRAVITY URINE 1.015; UROBILINOGEN URINE 1 mg/dL
[2019-06-11 07:48] LABS: URINE BACTERIA 1+ /HFP; URINE CAST NONE SEEN /LPF; URINE CRYSTAL NONE SEEN /HPF; URINE EPITHELIAL CELLS <10 /HPF (<10); URINE RBC <10 /HPF (<10); URINE SOURCE CLEAN CATCH; URINE WBC <10 /HPF (<10); URINE YEAST PRESENT /HPF
[2019-06-11 07:48] LABS: FREE T4 0.97 ng/dL (0.93-1.70); TSH 1.88 uIUmL (0.27-4.20)
[2019-06-11 07:53] LABS: UR AMPHETAMINES QUAL NONE DETECTED (NONE DETECT); UR BARBITUATES QUAL NONE DETECTED (NONE DETECT); UR BENZODIAZEPIN QUAL NONE DETECTED (NONE DETECT); UR CANNABINOIDS QUAL NONE DETECTED (NONE DETECT); UR COCAINE QUAL NONE DETECTED (NONE DETECT); UR METHADONE QUAL NONE DETECTED (NONE DETECT); UR METHAMPHETAMINE QUAL NONE DETECTED (NONE DETECT); UR OPIATES QUAL NONE DETECTED (NONE DETECT); UR OXYCODONE QUAL NONE DETECTED (NONE DETECT); UR PCP QUAL NONE DETECTED (NONE DETECT); UR PROPOXYPHENE QUAL NONE DETECTED (NONE DETECT); UR TCA QUAL NONE DETECTED (NONE DETECT)
--- NOTE | 2019-06-11 07:53 | Diag Imaging Result Doc PS360 ---
CT HEAD/C-SPINE W/O CONTRAST - 06/11/2019 INDICATION: dizziness, fall COMPARISON: 12/24/2018 FINDINGS: Head CT: There is a stable area of old encephalomalacia at the medial right occipital lobe. No intracranial mass or hemorrhage. The skull is intact. The sinuses are clear. Cervical spine: There is an anterior fusion plate at C4-C5-C6. No hardware fracture or loosening. Alignment is anatomic. No fracture or subluxation. There is advanced disc degeneration at C3-C4, C6-C7 and C7-T1. No severe central canal stenosis. IMPRESSION: No acute disease or change from prior. This exam was performed using automated exposure control, adjustment of mA or kV according to patient size, and/or use of iterative reconstruction technique Electronically signed by Duran Parker 06/11/2019 7:51 AM
[2019-06-11 07:54] LABS: INFLUENZA A NEGATIVE (NEGATIVE); INFLUENZA B NEGATIVE (NEGATIVE)
--- NOTE | 2019-06-11 07:57 | Diag Imaging Result Doc PS360 ---
Chest x-ray two views - 06/11/2019 INDICATION: SOB, COPD COMPARISON: 01/31/2019 FINDINGS: Stable hyperexpanded lungs compatible with mild COPD. Stable old bilateral rib deformities. No infiltrates or edema. No pneumothorax or pleural effusion. Heart size and pulmonary vascularity is normal. IMPRESSION: COPD. No acute disease or change from prior. Electronically signed by Duran Parker 06/11/2019 7:55 AM
--- NOTE | 2019-06-11 08:38 | EKG Report ---
Test Performed on : 06/11/2019 07:24:22 AM Test Reason : dizziness, SOB Blood Pressure : / mmHG Vent. Rate : 095 BPM Atrial Rate : 095 BPM P-R Int : 172 ms QRS Dur : 134 ms QT Int : 420 ms P-R-T Axes : 090 004 098 degrees QTc Int : 527 ms Normal sinus rhythm. Left bundle branch block Abnormal ECG When compared with ECG of 31-JAN-2019 10:40, premature ventricular complexes. are no longer present Questionable change in QRS axis T wave inversion no longer evident in Inferior leads Unconfirmed Result
[2019-06-11] MEDS ORDERED: NS 1,000 ML IV ONE ×3 (08:49→15:52)
[2019-06-11] MEDS ORDERED: LEVAQUIN 750 MG/D5W 750 MG/150 ML IVPB IV ONE (08:49)
[2019-06-11] MEDS: AZACTAM 2 GM in NS 100 ML IV SCH ×3 (10:07→20:40)
[2019-06-11] MEDS ORDERED: ZOFRAN IV PRN (11:50)
--- NOTE | 2019-06-11 12:41 | HISTORY AND PHYSICAL ---
PRIMARY CARE PROVIDER: Dr. Victor. CHIEF COMPLAINT: Shortness of breath, diarrhea and dizzy spell. HISTORY OF PRESENT ILLNESS: Mr. Kiran Velasco is a 64-year-old male with a medical history of CVA in the right occipital lobe area. No residuals. A heart attack around 10 to 12 years ago, hypertension, peripheral vascular disease, seizures with the last one being around 2 to 3 years ago, essential tremors and likely alcohol abuse issues, but only admits to a 6 pack a week. Actually was positive for alcohol on admission. Apparently, he has been having shortness of breath for about 2 or 3 days now, coughing up clear phlegm. Denies any colors to it. He does sound wheezy. He is not having any difficulties with breathing at this time. He also admits to waking up around 2 o'clock this morning feeling dizzy, having some right arm pain that lasted around 30 minutes. So, he called EMS who brought him to the emergency department. He had gone to bed around 7 p.m. last night feeling normal; that was also the last time he had beer. Head CT was negative for any acute findings. Chest x-ray just shows stable COPD, no actual pneumonia. He does have a urinalysis that was positive for nitrites and only had trace white blood cells with some bacteria, but he denies any urinary symptoms. He did have a urinal with dark, almost orange- colored urine in the urinal. He is afebrile. He has elevated lactate, so he is getting fluids. Bilirubin is up a little bit. He just seems like he is dehydrated. PAST MEDICAL HISTORY: 1. History of right occipital lobe infarct. 2. Myocardial infarction between 2007 and 2009. No cardiac stents. 3. Hypertension. 4. Peripheral vascular disease. 5. Seizure disorder with the last one being around 2 to 3 years ago. He is not on any antiepileptic drugs. 6. History of prostate cancer. 7. Essential tremors. SURGICAL HISTORY: 1. Prostatectomy. 2. Left inguinal hernia repair. 3. Right wrist, elbow and shoulder repair. SOCIAL HISTORY: One pack per day smoker for 25+ years. He only admits to drinking a 6 pack per week. Apparently, he likes [employer]. Admits to drinking last night. Denies any illicit drug use. Uses a cane for ambulation. Lives at home alone. FAMILY HISTORY: Mother and father both had hypertension. Father had a myocardial infarction at 85. ALLERGIES: Bupropion, cephalexin. HOME MEDICATIONS: 1. Desyrel 50 mg p.o. nightly. 2. Lasix 20 mg p.o. daily. 3. Potassium chloride 10 mEq p.o. daily. 4. Xarelto 1 mg p.o. daily. 5. Multivitamin 1 tablet p.o. daily. 6. Folic acid 1 mg p.o. daily. 7. Metoprolol 25 mg p.o. daily. 8. Thiamine 100 mg p.o. daily. REVIEW OF SYSTEMS: Fourteen point review of systems are complete and all are negative, except for those mentioned above in the HPI. He does state that he has been having loose stools for a week, both brown and watery in color. PHYSICAL EXAMINATION: VITAL SIGNS: Temperature 98.3 degrees, heart rate 108, respiratory rate 12, blood pressure 143/95, O2 saturation 100% on room air. GENERAL: Mr. Kiran Velasco is a 64-year-old male. He is in no acute distress. He does have signs of tremulousness in his face and in his arms. He is able to answer some questions appropriately. HEENT: Atraumatic, normocephalic. Pupils equal, reactive. Extraocular movements intact. Mucous membranes are dry. NECK: Trachea midline. CARDIOVASCULAR: S1, S2. Tachycardic rate and rhythm. No rubs, gallops, murmurs. He has got 1+ lower extremity pitting edema, +1 dorsalis pedal pulses, +2 radial pulses. Negative JVD or carotid bruits. PULMONARY: Posteriorly expiratory wheezes throughout with prolonged expiration. He is tolerating room air. GI: Soft, nontender, nondistended. Positive bowel sounds x4. EXTREMITIES: Moves all extremities equally. Decreased range of motion. SKIN: Warm, dry, intact, except for in the feet that were quite scabby. There are no open areas, but they are very callused. LABORATORY DATA: White blood cells 4000, hemoglobin 13, hematocrit 39, platelet count 115. INR is 1.07, PTT is 34.9. Sodium 134, potassium 3.5. BUN 2, creatinine 0.4, glucose 79, calcium 7.9. Bilirubin is 2.00, AST 155, ALT 48, ammonia level 18. CK 61, troponin 0.017. ProBNP 237, albumin 2.8, lactate 3.5 then up to 4.6, TSH 1.88, free T4 0.97. Urinalysis trace protein, positive nitrites, trace white blood cells, 1+ bacteria present with yeast. Urine drug screen negative. Alcohol level 43. Flu is negative. IMAGING: Chest x-ray showed COPD; no acute changes. Head cervical spine CT: There is old encephalomalacia at the right medial occipital lobe. There is degenerative disk disease, but essentially no acute findings. EKG: Normal sinus rhythm, rate 95. QTc is elevated at 527. There is a left bundle branch block, which is not anything new, he has had that. ASSESSMENT AND PLAN: 1. Near syncope likely secondary to dehydration from chronic diarrhea over the past week and could have an issue because of alcohol intoxication as well. He will get intravenous fluid hydration. He does have lactic acidosis with it, so he will be on antibiotics as well. 2. Possible urinary tract infection. He denies any symptoms of urinary tract infection, but he does have positive nitrites, yeast and bacteria in the urine, and again will be on aztreonam and getting intravenous fluid hydration. 3. Likely he does have alcohol intoxication with likely alcohol abuse. He only admits to 6 pack of beer per week, but he was positive alcohol here. Will need to do banana bag and probably some as-needed Ativan. His last seizure was 2 or 3 years ago. 4. Peripheral vascular disease. He does still have +1 dorsalis pedal pulses, but they are cool to touch. He does have some scabbing of the feet and the shins and all are swollen. 5. History of seizures again is 2 or 3 years ago. He has not had any antiepileptic drugs for that. 6. Encephalopathy, metabolic. May be some infectious source as well. He will be getting intravenous fluid hydration and antibiotics. 7. Hyperbilirubinemia and transaminitis, probably secondary to dehydration and affects of alcohol abuse. Dictated by HAILEY Kellogg for Isaac Samuesl MD Addendum: Patient seen and examined by myself. Agree with HAILEY note. It reflects my assessment and plan. Patient is being admitted to hospital for AMS and UTI. Will start broad spectrum antibiotics and will follow results of urine and blood cultures. Will also check CT of chest because of persistent cough with yellowish sputum. cc: HAILEY Kellogg [facility] [place]
[2019-06-11] MEDS ORDERED: VANCOMYCIN IV PER PHARMACY MISC SCH (13:15)
--- NOTE | 2019-06-11 13:56 | Diag Imaging Result Doc PS360 ---
CT THORAX W/O CONTRAST - 06/11/2019 INDICATION: r/o pna COMPARISON: Chest x-ray from earlier today FINDINGS: There is mild COPD. No infiltrates or edema. Airways are clear. No adenopathy. Advanced triple-vessel calcified coronary artery disease. There is moderate fatty change of the liver. Otherwise upper abdominal images are unremarkable. There are several old rib deformities. There are moderate degenerative changes of the spine. No acute or suspicious bony lesion. IMPRESSION: COPD. Fatty liver. Coronary artery disease. This exam was performed using automated exposure control, adjustment of mA or kV according to patient size, and/or use of iterative reconstruction technique Electronically signed by Duran Parker 06/11/2019 1:54 PM
[2019-06-11] MEDS ORDERED: VANCOMYCIN 2,000 MG in NS 500 ML IV ONE (14:00)
[2019-06-11] MEDS: M.V.I.-12 10 ML, FOLIC ACID 1 MG, MAGNESIUM SULFATE 1 GM, THIAMINE 100 MG in NS 1,000 ML IV SCH (14:21)
[2019-06-11] MEDS: ATROVENT NEB INH SCH ×2 (15:45→22:14)
[2019-06-11] MEDS: XOPENEX NEB INH SCH ×2 (15:45→22:14)
[2019-06-11] MEDS: NICODERM PATCH TD PRN (19:01)
[2019-06-11] MEDS: DESYREL PO SCH (20:40)
[2019-06-11] MEDS: ATIVAN IV PRN (22:06)
[2019-06-11] MEDS: PULMICORT INH SCH (22:14)
[2019-06-12] MEDS: VANCOMYCIN 1,600 MG in NS 250 ML IV SCH ×2 (01:02→15:32)
[2019-06-12] MEDS: ATROVENT NEB INH SCH ×4 (03:55→22:51)
[2019-06-12] MEDS: XOPENEX NEB INH SCH ×4 (03:55→22:51)
[2019-06-12] MEDS: AZACTAM 2 GM in NS 100 ML IV SCH ×4 (05:37→20:56)
[2019-06-12] MEDS: NS 1,000 ML IV PRN (05:53)
[2019-06-12 06:48] LABS: HEMATOCRIT 37.6 % (42.0-52.0); HEMOGLOBIN 12.6 g/dL (14.0-18.0); IMM GRAN# 0.01 X1000 (0.0-0.04); IMM GRAN% 0.1 % (0.0-0.5); LYMPH% 13.1 % (20.5-51.1); MCH 34.1 PG (27-31); MCHC 33.5 g/dL (33-37); MCV 101.9 FL (81-99); MPV 11.1 FL (7.4-10.4); NEUT# 5.34 X1000 (1.4-6.5); NEUT% 69.8 % (42.2-75.2); PLT 102 X1000 (130-400); RBC 3.69 XMIL (4.7-6.1); RDW 14.5 % (11.5-14.5); WBC 7.65 X1000 (4.8-10.8)
[2019-06-12 07:31] LABS: AGAP 9; ALBUMIN 2.5 g/dL (3.5-5.0); ALKALINE PHOSPHATASE 127 U/L (32-122); BUN 3 mg/dL (8-22); CHLORIDE 98 mmol/L (98-107); COSMO 265; CREATININE 0.3 mg/dL (0.7-1.2); ESTIMATED GFR > 60; GLUCOSE 109 mg/dL (70-104); GOT 79 U/L (10-34); GPT 35 U/L (10-44); MAGNESIUM 1.7 mg/dL (1.5-2.7); POTASSIUM 2.9 mmol/L (3.5-5.1); SODIUM 134 mmol/L (136-145); TCO2 26 mmol/L (25-35); TOTAL PROTEIN 5.5 g/dL (6.3-8.3)
[2019-06-12 08:10] LABS: INR 1.16; PROTIME 15.4 Seconds (11.0-16.0); PTT 33.7 Seconds (22.3-41.8)
[2019-06-12] MEDS ORDERED: POTASSIUM CHLORIDE 20% LIQUID PO ONE (08:30)
[2019-06-12] MEDS: M.V.I.-12 10 ML, FOLIC ACID 1 MG, MAGNESIUM SULFATE 1 GM, THIAMINE 100 MG in NS 1,000 ML IV SCH (08:37)
[2019-06-12] MEDS: LASIX PO SCH (08:37)
[2019-06-12] MEDS: FOLIC ACID PO SCH (08:37)
[2019-06-12] MEDS: THERA M PLUS PO SCH (08:37)
[2019-06-12] MEDS: VITAMIN B-1 PO SCH (08:38)
[2019-06-12] MEDS: XARELTO PO SCH (08:54)
[2019-06-12] MEDS ORDERED: CALCIUM GLUCONATE 1 GM in NS 50 ML IV ONE (09:00)
[2019-06-12 09:12] LABS: CALCIUM 7.4 mg/dL (8.8-10.2)
[2019-06-12] MEDS: PULMICORT INH SCH ×2 (10:51→21:17)
--- NOTE | 2019-06-12 13:09 | PROGRESS NOTE ---
DATE: 06/12/2019 SUBJECTIVE: Patient reports feeling no short of breath. He still complains of diarrhea 2 times per day. He is not feeling dizzy. He reports feeling overall much better. OBJECTIVE: Vital Signs: Temperature 98.1 degrees, heart rate 91, respiratory rate 12, blood pressure 137/82, O2 saturation 98% on room air. General: This is a chronically ill-appearing, 64-year-old, male, lying in bed, in no acute distress. Cardiovascular: S1, S2 heard. No murmurs, gallops, or rubs. Regular rate and rhythm. Respiratory: Minimal wheezing noted in both pulmonary bases. The patient is not using any accessory muscles or having work of breathing. Abdomen: Soft, nontender to palpation. Bowel sounds present. No organomegaly. Extremities: No clubbing, cyanosis, or edema. Peripheral pulses present in both legs. Neurological: Patient alert and oriented x3. Moves 4 extremities. LABORATORY DATA: White cell count 7.65, hemoglobin 12.6, hematocrit 37.6, platelets 102,000 with total bilirubin of 1.9. ASSESSMENT AND PLAN: 1. Chronic diarrhea/dehydration. Patient is receiving IV fluids. We are going to order some stool studies and see what it shows. Basically, we will be looking for Clostridium difficile. Also we will continue with IV fluids, in this case the patient is getting MVI and normal saline at 75 mL per hour. We will continue with the same management. 2. Possible urinary tract infection. The urine culture returned negative but considering this patient was complaining of more urinary frequency and burning on urination, I prefer to continue with antibiotics, in this case aztreonam. 3. Alcohol intoxication. That I think is getting better. Patient is more awake today. He drinks 6 packs of beer per week and I do not know that he is taking it by day. In any case, we will continue with Ativan p.r.n. 4. Peripheral vascular disease. We will continue home medications. 5. Metabolic encephalopathy. That condition is much better. We will continue to monitor. 6. Hyperbilirubinemia/transaminitis that most likely related to chronic alcohol consumption. We will continue to monitor. 7. Physical deconditioning. The patient requests to be sent to rehab facility. We will put a consult for rn social work. cc: Isaac Samuels MD
[2019-06-12] MEDS: ATIVAN IV PRN (17:43)
--- NOTE | 2019-06-12 18:06 | EKG Report ---
Test Performed on : 06/12/2019 5:47:40 PM Test Reason : HR >200 Blood Pressure : / mmHG Vent. Rate : 117 BPM Atrial Rate : 117 BPM P-R Int : 122 ms QRS Dur : 144 ms QT Int : 384 ms P-R-T Axes : 063 043 138 degrees QTc Int : 535 ms Sinus tachycardia. with premature supraventricular complexes. Left bundle branch block Abnormal ECG When compared with ECG of 11-JUN-2019 07:24, (Unconfirmed) premature supraventricular complexes. are now present T wave inversion now evident in Inferior leads Confirmed by Ludin Randolph MD ([id number]) on 06/25/2019 9:15:55 PM
[2019-06-12] MEDS ORDERED: CARDIZEM IV ONE (19:27)
[2019-06-12] MEDS ORDERED: CARDIZEM 125 MG/D5W 125 MG/125 ML IVPB IV SCH ×2 (19:30→22:15)
--- NOTE | 2019-06-12 19:40 | ED EKG INTERP ---
This chart was entered by Tania Velasco Scribe, acting as scribe for Clark Scherer MD. EKG Interpretation - EKG Time of EKG reading by physician:: 07:34 EKG Read and Signed by:: Clark Scherer EKG Interpretation (*Must complete 3 of following elements*): Abnormal Rate: 95 Rhythm: NSR Panhandle: normal QRS: LBB ME Interval: normal ST Wave: normal Comments: Long corrected QT interval Attestation - Physician/ AYAZ Attestation Patient care was provided by Advanced Practice Provider:: No The physician spent face to face time with patient:: Yes Advanced Practice Provider documentation review:: Supervising physician onsite and consulted in the evaluation and care of this patient. The physician did have a face to face encounter with the patient. This chart was documented by the indicated scribe, (Tania Velasco Scribe) and accurately reflects the services I performed and decisions made by me, Clark Scherer MD, as attested by the provider's signature.
[2019-06-12] MEDS ORDERED: CARDIZEM ONE (19:57)
[2019-06-12] MEDS ORDERED: CARDIZEM 125 MG/D5W 125 MG/125 ML IVPB ONE (20:05)
--- NOTE | 2019-06-12 20:47 | EKG Report ---
Test Performed on : 06/12/2019 7:14:57 PM Test Reason : HR elevated Blood Pressure : / mmHG Vent. Rate : 115 BPM Atrial Rate : 115 BPM P-R Int : 138 ms QRS Dur : 134 ms QT Int : 376 ms P-R-T Axes : 052 015 139 degrees QTc Int : 520 ms Sinus tachycardia. Left bundle branch block Abnormal ECG When compared with ECG of 12-JUN-2019 17:47, (Unconfirmed) premature supraventricular complexes. are no longer present Confirmed by Ludin Randolph MD ([id number]) on 06/25/2019 9:15:45 PM
[2019-06-12] MEDS: DESYREL PO SCH (20:49)
--- NOTE | 2019-06-12 21:47 | Diag Imaging Result Doc PS360 ---
EXAM: CHEST-PORTABLE INDICATION: CAT call TECHNIQUE: One view COMPARISON: 06/11/2019 FINDINGS: There has been development of a mild opacity at the left lung base suggesting atelectasis and/or infiltrate. No other new consolidation is identified. Cardiac silhouette is stable. IMPRESSION: Development of mild atelectasis and/or infiltrate at the left lung base. Electronically signed by Payam Velasco 06/12/2019 9:44 PM
[2019-06-13] MEDS: XOPENEX NEB INH SCH ×5 (00:52→22:28)
[2019-06-13] MEDS ORDERED: VANCOMYCIN 1,600 MG in NS 250 ML IV SCH (02:00)
[2019-06-13] MEDS: NS 1,000 ML IV PRN ×2 (05:08→23:14)
[2019-06-13] MEDS: ATIVAN IV PRN ×4 (05:08→20:42)
[2019-06-13] MEDS: ATROVENT NEB INH SCH ×4 (05:19→22:28)
[2019-06-13] MEDS: AZACTAM 2 GM in NS 100 ML IV SCH ×3 (05:41→20:17)
--- NOTE | 2019-06-13 06:57 | Diag Imaging Result Doc PS360 ---
EXAM: CHEST-PORTABLE HISTORY: pulmonary edema TECHNIQUE: Chest single view COMPARISON: 06/12/2019 FINDINGS: The lungs are well expanded. No cardiomegaly. Decreased atelectasis and infiltrates in the lower lungs. Multiple old right rib fractures with prior surgery to the lower neck and right clavicle. IMPRESSION: Interval improvement Electronically signed by Ronal Flowers 06/13/2019 6:56 AM
[2019-06-13 07:08] LABS: BASO# 0.01 X1000 (0.0-0.2); BASO% 0.1 % (0.0-0.8); EOS# 0.02 X1000 (0.0-0.7); EOS% 0.2 % (0.0-10.0); HEMATOCRIT 38.8 % (42.0-52.0); HEMOGLOBIN 13.3 g/dL (14.0-18.0); IMM GRAN# 0.05 X1000 (0.0-0.04); IMM GRAN% 0.6 % (0.0-0.5); MCH 34.7 PG (27-31); MCHC 34.3 g/dL (33-37); MCV 101.3 FL (81-99); MONO# 1.44 X1000 (0.11-0.59); MONO% 17.1 % (1.7-9.3); MPV 11.3 FL (7.4-10.4); PLT 83 X1000 (130-400); RBC 3.83 XMIL (4.7-6.1); RDW 14.5 % (11.5-14.5); WBC 8.42 X1000 (4.8-10.8)
[2019-06-13 07:19] LABS: AGAP 13; ALB/GLOB RATIO 0.7; ALBUMIN 2.3 g/dL (3.5-5.0); ALKALINE PHOSPHATASE 118 U/L (32-122); BUN 3 mg/dL (8-22); CALCIUM 7.3 mg/dL (8.8-10.2); CHLORIDE 98 mmol/L (98-107); COSMO 265; CREATININE 0.3 mg/dL (0.7-1.2); ESTIMATED GFR > 60; GLUCOSE 94 mg/dL (70-104); GOT 70 U/L (10-34); GPT 37 U/L (10-44); MAGNESIUM 1.7 mg/dL (1.5-2.7); POTASSIUM 3.3 mmol/L (3.5-5.1); SODIUM 134 mmol/L (136-145); TCO2 23 mmol/L (25-35); TOTAL BILIRUBIN 2.18 mg/dL (0.20-1.00); TOTAL PROTEIN 5.6 g/dL (6.3-8.3)
[2019-06-13] MEDS ORDERED: M.V.I.-12 10 ML, FOLIC ACID 1 MG, MAGNESIUM SULFATE 1 GM, THIAMINE 100 MG in NS 1,000 ML IV SCH (09:00)
[2019-06-13] MEDS ORDERED: LOPRESSOR PO SCH (09:00)
[2019-06-13] MEDS: THERA M PLUS PO SCH (09:51)
[2019-06-13] MEDS: VITAMIN B-1 PO SCH (09:51)
[2019-06-13] MEDS: XARELTO PO SCH (09:51)
[2019-06-13] MEDS: KLOR-CON PO SCH ×2 (09:51→12:14)
[2019-06-13] MEDS: FOLIC ACID PO SCH (09:51)
[2019-06-13] MEDS: LASIX PO SCH (09:51)
[2019-06-13] MEDS: VANCOMYCIN 1,600 MG in NS 250 ML IV SCH ×2 (09:52→20:17)
[2019-06-13] MEDS: PULMICORT INH SCH ×2 (10:00→22:27)
[2019-06-13] MEDS: NICODERM PATCH TD PRN (10:32)
[2019-06-13] MEDS: LIBRIUM PO SCH ×3 (10:49→23:15)
--- NOTE | 2019-06-13 12:26 | PROGRESS NOTE ---
DATE: 06/13/2019 INTERVAL HISTORY: No acute events overnight. The patient was transferred from [facility] for tachycardia and heart rate of 160s. SUBJECTIVE: In the morning time, patient has started becoming more confused and he was hallucinating and he had to be restrained. He has been started on IV lorazepam as well as Librium. He is a confused frequently, trying to come out of bed. He is arousable and he answers questions, but he appears agitated, not in any acute distress. VITAL SIGNS: Temperature of 98.7 degrees, pulse 108, respiratory rate 22, blood pressure of 138/81. He is saturating 100% on 2 L nasal cannula. PHYSICAL EXAMINATION: General: Does not appear in acute distress. HEENT: Oral cavity is moist. Lungs: Air entry bilaterally equal. No wheeze, rhonchi, crackles. Cardiovascular: S1, S2 normal. Tachycardic, regular. No murmur or gallop. Abdomen: Soft, nontender. Extremities: No lower extremity edema. He is in four-point restraints. Neurologic: Pupils are bilaterally equal, reacting to light. No facial asymmetry. He is alert, he is oriented to himself, not entirely with the situation. INPUT AND OUTPUT: He was incontinent. LABORATORY DATA: Today suggestive of no leukocytosis, macrocytosis. Normal platelet count. Hypokalemia being repleted. He had a lactic acidosis which has become normal now. MICROBIOLOGY: Blood culture, urine culture does not have any growth. IMAGING: Chest x-ray performed today morning has interval improvement and decreased atelectasis and infiltrate in the lower lungs. Electrocardiogram performed yesterday had sinus tachycardia with a left bundle branch block. His heart rate was elevated to 115. ASSESSMENT AND PLAN: 1. Acute delirium due to alcohol withdrawal. Start patient on chlordiazepoxide and continue intravenous lorazepam as needed. I will continue him on thiamine and multivitamin for alcohol use disorder and will certified substance abuse counselor him once he is more alert. 2. Possible urinary tract infection based on his symptoms and possible left lower lobe pneumonia with history of chronic obstructive pulmonary disease and tobacco abuse. I will change intravenous antibiotics to intravenous levofloxacin. His urine culture and blood culture have not shown any growth. I will give him a short course of about 5 days of total antibiotics. I will also keep him on levalbuterol ipratropium nebulization. He does not appear to be wheezing on my exam at the moment. I will continue him on nicotine patch for his tobacco use disorder. 3. Sinus tachycardia with left bundle branch block. He had reported heart rate of 160 yesterday night triggering CAT call at [facility]. This could be related to autonomic instability in the setting of alcohol withdrawal and delirium tremens. I will keep him on intravenous fluids and resume his home metoprolol. Intravenous diltiazem drip has been discontinued. 4. Others. Continue Xarelto for history of left lower extremity deep venous thrombosis in February 2019. 5. Disposition. I will continue to monitor patient in PVC unit. Plan of care discussed with the patient's daughter on phone. Their questions have been answered. cc: Kaushal Issa MD [place]
[2019-06-13] MEDS ORDERED: THIAMINE 200 MG in NS 50 ML IV ONE (12:49)
[2019-06-13] MEDS ORDERED: THIAMINE 100 MG in NS 50 ML IV SCH (13:00)
--- NOTE | 2019-06-13 13:36 | ECHO REPORT ---
ORDER DATE: 06/12/2019 INTERPRETING PHYSICIAN: Dr. Med Hernandez ECHOCARDIOGRAPHIC MEASUREMENTS: 1. Interventricular septum: 1.3 cm. 2. Posterior wall: 1.4 cm. 3. Diastolic diameter: 3.8 cm. SUMMARY OF THE 2-DIMENSIONAL IMAGIN. Left atrium mildly enlarged. 2. Aortic valve leaflets are trileaflet. 3. Mitral valve was normal. 4. Tricuspid valve was normal. 5. Pulmonic valve not well visualized. 6. Technically suboptimal study. 7. Normal left ventricular cavity size. Concentric left ventricular hypertrophy with reduced systolic function. Estimated ejection fraction of 35 to 40 percent. There is anteroseptal hypokinesis in addition to global hypokinesis. 8. There is diastolic dysfunction. 9. There is mild mitral regurgitation. 10. Mild tricuspid regurgitation. Peak velocity across the tricuspid valve less than 2 m/sec. 11. By Doppler studies, there is no aortic stenosis or regurgitation. 12. There is asymmetric septal hypertrophy noted. cc: MD Isaac Watson MD
[2019-06-13] MEDS: LOPRESSOR PO SCH ×2 (13:59→20:16)
--- NOTE | 2019-06-13 15:06 | CONSULTATION ---
DATE OF CONSULTATION: 06/13/2019 IMPRESSION: 1. Recent tachycardia probably related to alcohol withdrawal syndrome. 2. Left bundle branch block, chronic. 3. Cardiomyopathy with left ejection fraction approximately 35%. Previous stress myocardial perfusion study 2 years ago demonstrated fixed defect in anteroseptal region and apex. 4. Chronic alcohol use likely excessive given clinical features although patient reluctant to admit how much he drinks. 5. Confusion, ongoing, probably related to alcohol withdrawal. 6. Chronic obstructive pulmonary disease. 7. Previous seizures. RECOMMENDATIONS: 1. Follow up repeat echocardiography. 2. Administered thiamine in generous doses daily. 3. Discontinue IV Cardizem. 4. Increase oral metoprolol for rate control and cardiomyopathy. 5. Treat alcohol withdrawal syndrome as you are doing. 6. Consider addition of angiotensin receptor blocking agent as patient recovers. 7. Smoking cessation and cessation of alcohol use. HISTORY: This 64-year-old white male with past history of chronic alcohol use, hypertension, cardiomyopathy, left bundle branch block, seizures, previous cerebrovascular accident and left bundle branch block was admitted through the [facility] after he presented with dizziness and some shortness of breath. Following admission he developed tachycardia and was transferred to the PVC unit. Cardiology was consulted today. Appears he was in sinus tachycardia around 160 beats per minute. When I see him he is somewhat confused and with tremors. He is in restraints. Staff relates that he has had some incontinence. He is rather vague regarding his alcohol intake. He relates he drinks a six-pack of beer per week. However his alcohol level was 43 and he has had higher alcohol levels in the past on admissions suggesting that he likely drinks more than he admits. He appeared to be clinically dehydrated and has been receiving some IV fluids. He has history of cardiomyopathy with left ventricular ejection fraction around 35% as well as chronic left bundle branch block. Previous noninvasive evaluation last year demonstrated fixed defect in anteroseptal region and apex. PAST MEDICAL HISTORY: 1. Cardiomyopathy. 2. Chronic left bundle branch block. 3. Hypertension. 4. Seizure disorder. 5. Right occipital lobe cerebrovascular accident. 6. Prostate cancer. PAST SURGICAL HISTORY: Includes prostatectomy, left inguinal hernia repair and unspecified surgery on right wrist, elbow and shoulder. ALLERGIES: He is allergic or intolerant to bupropion and cephalexin. MEDICATIONS PRIOR TO ADMISSION: As listed. SOCIAL HISTORY: He has history of chronic cigarette use at 1 pack cigarettes per day. He admits to drinking a 6 pack of beer per week. He denies illicit drug use. He ambulates with a cane. He lives at home alone. FAMILY HISTORY: Negative for premature coronary disease. REVIEW OF SYSTEMS: Pulmonary: Noncontributory beyond history present illness. Gastrointestinal: Noncontributory beyond history of present illness. Constitutional: Noncontributory beyond history of present illness. Remainder review of systems negative/noncontributory beyond history present illness with 14 total systems reviewed. PHYSICAL EXAMINATION: Reveals an overweight older white male who appears older than stated age who is awake and responsive and in arm restraints. He appears to be in no distress.Vital signs: Blood pressure 142/89, heart rate 100 and regular, oxygen saturation 95% on nasal cannula oxygen at 2 L/minute. HEENT: Extraocular movements intact. He has no problems with lateral gaze. Mucous membranes are moist. Neck: Supple without jugular venous distention. No carotid bruits. Chest: Clear to auscultation. Cardiac Exam: Reveals a regular rate and rhythm without appreciable murmur or gallop. Abdomen: Soft. Bowel sounds normal. Extremities: Without edema. Neurologic: Reveals him to be awake and responsive. He is oriented to person and to the year. He is not oriented to place. He moves all 4 extremities equally well. Speech is fluent. He has a tremor. PERTINENT DATA: Twelve lead EKG demonstrates sinus tachycardia and left bundle branch block. LABORATORY DATA: Includes white blood cell count 8.42, hematocrit 38.8, hemoglobin 13.3, platelet count 83,000. Sodium 134, potassium 3.3, chloride 98, carbon dioxide 23, BUN 3, creatinine 0.3, glucose 94, bilirubin 2.18, AST 70, ALT 37, alkaline phosphatase 118, albumin 2.3. Initial troponin less than 0.01. Followup troponin 0.017. Pro B natriuretic peptide level 237, initial CPK 57, followup CPK 61. TSH 1.88. Free T4 0.97. cc: Wei Mendoza MD
[2019-06-13] MEDS: DESYREL PO SCH (20:16)
[2019-06-14] MEDS: ATIVAN IV PRN (01:42)
[2019-06-14] MEDS: ATROVENT NEB INH SCH ×4 (04:08→21:34)
[2019-06-14] MEDS: XOPENEX NEB INH SCH ×4 (04:08→21:34)
[2019-06-14] MEDS: LOPRESSOR PO SCH ×3 (05:17→20:27)
[2019-06-14] MEDS: LIBRIUM PO SCH ×2 (05:17→10:57)
[2019-06-14 06:23] LABS: AGAP 10; ALB/GLOB RATIO 0.7; ALBUMIN 2.3 g/dL (3.5-5.0); ALKALINE PHOSPHATASE 116 U/L (32-122); BUN 4 mg/dL (8-22); CHLORIDE 103 mmol/L (98-107); COSMO 270; CREATININE 0.3 mg/dL (0.7-1.2); ESTIMATED GFR > 60; GLUCOSE 79 mg/dL (70-104); GOT 42 U/L (10-34); GPT 30 U/L (10-44); MAGNESIUM 1.6 mg/dL (1.5-2.7); POTASSIUM 3.7 mmol/L (3.5-5.1); SODIUM 137 mmol/L (136-145); TCO2 24 mmol/L (25-35); TOTAL BILIRUBIN 2.03 mg/dL (0.20-1.00); TOTAL PROTEIN 5.4 g/dL (6.3-8.3)
[2019-06-14 06:37] LABS: CALCIUM 6.6 mg/dL (8.8-10.2)
[2019-06-14 06:42] LABS: BASO# 0.01 X1000 (0.0-0.2); BASO% 0.1 % (0.0-0.8); EOS# 0.04 X1000 (0.0-0.7); EOS% 0.5 % (0.0-10.0); HEMATOCRIT 38.5 % (42.0-52.0); HEMOGLOBIN 13.2 g/dL (14.0-18.0); IMM GRAN# 0.05 X1000 (0.0-0.04); IMM GRAN% 0.6 % (0.0-0.5); LYMPH# 1.74 X1000 (1.2-3.4); MCHC 34.3 g/dL (33-37); MCV 102.1 FL (81-99); MONO# 1.84 X1000 (0.11-0.59); MONO% 21.2 % (1.7-9.3); MPV 11.9 FL (7.4-10.4); NEUT% 57.6 % (42.2-75.2); PLT 74 X1000 (130-400); RBC 3.77 XMIL (4.7-6.1); RDW 14.1 % (11.5-14.5); WBC 8.68 X1000 (4.8-10.8)
[2019-06-14 07:45] LABS: LYMPHS 22 % (21-51); MONO 20 % (1-9); SEGS 58 % (42-75)
--- NOTE | 2019-06-14 09:01 | PROGRESS NOTE ---
DATE: 06/14/2019 INTERVAL HISTORY: No acute events overnight. He remained on restraints. He is still confused, though he is more calm today. He has not had any tachycardia episodes. SUBJECTIVE: He is drowsy, arousable, but does not answer questions appropriately. Does not follow commands. VITALS: Temperature of 98 degrees, pulse 97, respiratory rate 18, blood pressure 118/80, saturating 98% on 2 L nasal cannula. PHYSICAL EXAMINATION: General: Does not appear in any in any acute distress. Oral cavity: Dry. Lungs: Air entry bilaterally equal. No wheeze, rhonchi, crackles. Cardiovascular: S1, S2 normal. No murmur, rub or gallop. Abdomen: Soft, nontender. Extremities: No lower extremity edema. Neurologic: He is in four-point restraints. Pupils are bilaterally equal reacting to light. No facial asymmetry. On strong verbal stimuli, he becomes alert, but is not oriented. INPUT AND OUTPUT: No bowel movement documented. LABS: Macrocytosis. Close to normal hemoglobin. He does have thrombocytopenia. His ionized calcium is low. His hypokalemia and hyponatremia has resolved. He has normal kidney function. His bilirubin is improving. His lactic acidosis has also resolved. ASSESSMENT AND PLAN: 1. Acute delirium due to delirium tremens due to alcohol withdrawal. Continue chlordiazepoxide and as-needed intravenous lorazepam, thiamine and multivitamin. 2. Suspected urinary tract infection based on his symptoms and possible left lower lobe pneumonia with baseline chronic obstructive pulmonary disease and tobacco abuse. Continue intravenous levofloxacin. His culture data has been unremarkable. Continue levalbuterol ipratropium nebulization, as well as nicotine patch for tobacco abuse. I will stop IV fluids for his acute hypoxic respiratory failure. 3. Sinus tachycardia with baseline left bundle branch block. He had reported heart rate of 160 at [facility]. I will continue him on metoprolol and intravenous fluids. He also has history of congestive heart failure with ejection fraction of 35% with a fixed defect in the anteroseptal septal region and apex in the past. In the future, I will start him on ELIJAH inhibitors as tolerated. 4. Thrombocytopenia. This could be related to his alcohol use and liver dysfunction secondary to that. No overt bleeding. I am holding his Xarelto, which he was taking for left lower extremity deep venous thrombosis in February 2019. DISPOSITION: I will continue to monitor patient in PVC unit. Plan of care was yesterday discussed with the patient's daughter. cc: Kaushal Issa MD [place]
[2019-06-14] MEDS: LEVAQUIN 750 MG/D5W 750 MG/150 ML IVPB IV SCH (09:17)
[2019-06-14] MEDS: MAGNESIUM SULFATE 2 GM/S.W.I. 2 GM/50 ML IVPB IV SCH ×2 (09:17→10:57)
[2019-06-14] MEDS: FOLIC ACID PO SCH (09:18)
[2019-06-14] MEDS: TUMS PO SCH ×3 (09:18→18:26)
[2019-06-14] MEDS: THERA M PLUS PO SCH (09:18)
[2019-06-14] MEDS: VITAMIN B-1 PO SCH (09:18)
[2019-06-14] MEDS: PULMICORT INH SCH ×2 (09:23→21:34)
--- NOTE | 2019-06-14 11:56 | Diag Imaging Result Doc PS360 ---
EXAM: CHEST-PORTABLE 06/14/2019 HISTORY: Evaluate for aspiratioin pneumonia TECHNIQUE: AP portable upright at 1146 COMMENT: There is ill-defined opacity in both lung bases. This appears slightly worse on the right than on 06/13/2019. The heart size is also somewhat larger in appearance. IMPRESSION: Pulmonary edema and/or pneumonia with cardiomegaly. Electronically signed by Joel Roberts 06/14/2019 11:54 AM
[2019-06-14 12:11] LABS: ALLEN TEST YES; BE 0.1 mmoll (-3.0-3.0); BLOOD TYPE ARTERIAL; HCO3-(ACT) 24.9 mmoll (20.0-26.0); METHB 0.9 % (0.0-1.5); O2HB 94.3 % (95.0-99.0); PCO2(98.6) 43 mmHg (35-45); PO2(98.6) 73 mmHg (60-100); SAMPLE BLOOD; SAO2 97.6 % (95.0-100.0); pH(98.6) 7.38 (7.35-7.45)
[2019-06-14 12:12] LABS: MODALITY CANNULA
[2019-06-14] MEDS: NS 1,000 ML IV PRN (14:07)
[2019-06-14] MEDS: THIAMINE 100 MG in NS 50 ML IV SCH (14:08)
[2019-06-14] MEDS ORDERED: NS 1,000 ML IV PRN (16:11)
[2019-06-14] MEDS: DESYREL PO SCH (20:27)
[2019-06-15] MEDS: XOPENEX NEB INH SCH ×4 (03:35→21:06)
[2019-06-15] MEDS: ATROVENT NEB INH SCH ×4 (03:35→21:06)
[2019-06-15] MEDS: LOPRESSOR PO SCH ×3 (04:40→20:34)
[2019-06-15 06:07] LABS: BASO# 0.01 X1000 (0.0-0.2); BASO% 0.1 % (0.0-0.8); EOS# 0.01 X1000 (0.0-0.7); EOS% 0.1 % (0.0-10.0); HEMATOCRIT 39.3 % (42.0-52.0); HEMOGLOBIN 13.3 g/dL (14.0-18.0); IMM GRAN# 0.05 X1000 (0.0-0.04); IMM GRAN% 0.4 % (0.0-0.5); LYMPH# 1.14 X1000 (1.2-3.4); LYMPH% 8.6 % (20.5-51.1); MCH 35.1 PG (27-31); MCHC 33.8 g/dL (33-37); MCV 103.7 FL (81-99); MONO# 3.09 X1000 (0.11-0.59); MONO% 23.3 % (1.7-9.3); MPV 11.1 FL (7.4-10.4); NEUT# 8.98 X1000 (1.4-6.5); NEUT% 67.5 % (42.2-75.2); PLT 93 X1000 (130-400); RBC 3.79 XMIL (4.7-6.1); RDW 14.2 % (11.5-14.5); WBC 13.28 X1000 (4.8-10.8)
[2019-06-15 06:31] LABS: AGAP 12; ALB/GLOB RATIO 0.6; ALBUMIN 2.3 g/dL (3.5-5.0); ALKALINE PHOSPHATASE 115 U/L (32-122); BUN 8 mg/dL (8-22); CALCIUM 7.8 mg/dL (8.8-10.2); CHLORIDE 101 mmol/L (98-107); COSMO 273; CREATININE 0.4 mg/dL (0.7-1.2); ESTIMATED GFR > 60; GLUCOSE 76 mg/dL (70-104); GOT 60 U/L (10-34); GPT 32 U/L (10-44); POTASSIUM 3.9 mmol/L (3.5-5.1); SODIUM 138 mmol/L (136-145); TCO2 25 mmol/L (25-35); TOTAL BILIRUBIN 1.44 mg/dL (0.20-1.00); TOTAL PROTEIN 5.9 g/dL (6.3-8.3)
[2019-06-15 08:41] LABS: BANDS 2 % (0-1); LYMPHS 8 % (21-51); MONO 14 % (1-9); SEGS 76 % (42-75)
[2019-06-15] MEDS: TUMS PO SCH ×3 (09:04→17:37)
[2019-06-15] MEDS: FOLIC ACID PO SCH (09:04)
[2019-06-15] MEDS: VITAMIN B-1 PO SCH (09:04)
[2019-06-15] MEDS: LEVAQUIN 750 MG/D5W 750 MG/150 ML IVPB IV SCH (09:04)
[2019-06-15] MEDS: THERA M PLUS PO SCH (09:04)
--- NOTE | 2019-06-15 09:48 | PROGRESS NOTE ---
DATE: 06/15/2019 INTERVAL HISTORY: No acute events overnight. Yesterday he had an episode of desaturation and was started on nasal cannula. He also had gurgling sound in his throat requiring suction. Otherwise, no acute events overnight. He has not been eating. He was made NPO except medications. SUBJECTIVE: He currently appears confused, then drowsy. He has not been getting any Librium, which was stopped yesterday and he is only on as needed lorazepam. He is still in restraints. He intermittently follows commands and answers questions. However he keeps his eyes closed most of the times. VITAL SIGNS: Temperature of 98.7 degrees, pulse 86, respiratory rate blood pressure 120/70. He is saturating 94% on 4 L nasal cannula. PHYSICAL EXAMINATION: General: Does not appear in acute distress. He does have what sounds like secretions in his pharynx. However, on strong verbal stimuli he is coughing and at 1 point he was able to swallow it as well, which improved his saturation. Blood pressure is 120/71. Lungs: Air entry bilaterally equal. He does have bilateral rhonchi no wheeze or crackles. Cardiovascular: S1, S2 normal. Regular. No murmur, rub, or gallop. Abdomen: Soft, nontender. Extremity: Edema. : He has urine catheter. Neurologic: He is drowsy but arousable to strong verbal stimuli. Intermittently follows commands, but does not appear oriented. Input and output suggest he had 850 mL of urine output so far. LABS: Suggestive of leukocytosis, normocytic anemia. His thrombocytopenia is currently appearing stable. Normal electrolytes. His hypocalcemia is improving. MICROBIOLOGY: No positive data. IMAGING: Chest x-ray suggests pulmonary edema and/or pneumonia with cardiomegaly. ASSESSMENT AND PLAN: 1. Acute delirium due to delirium tremens due to alcohol withdrawal. Continue as needed lorazepam, thiamine and multivitamin. 2. Suspected urinary tract infection based on his symptoms of frequency and left lower lobe pneumonia leading to acute hypoxic respiratory failure with baseline chronic obstructive pulmonary disease and tobacco abuse. Continue intravenous levofloxacin. His culture data has been unremarkable. Continue levalbuterol ipratropium nebulization, nicotine patch. 3. Sinus tachycardia with baseline left bundle branch block. Cardiology team currently recommends metoprolol. He does have chronic systolic congestive heart failure with ejection fraction of 35% with a fixed defect in the anteroseptal region and the apex in the past according to echocardiogram. I will in future add ELIJAH inhibitors as tolerated. 4. Thrombocytopenia likely because of his alcohol use and liver dysfunction secondary that. No overt bleeding. I will monitor it. I am holding his Xarelto, which he has been taking for left lower extremity deep venous thrombosis in February 2019. DISPOSITION: Continue to monitor patient in PVC unit. I tried to reach out to his daughter, however, the number is not functioning. I will try to look for alternative number. Plan of care discussed with the nursing team. cc: Kaushal Issa MD MTDD
[2019-06-15] MEDS: PULMICORT INH SCH ×2 (10:34→21:06)
[2019-06-15] MEDS: THIAMINE 100 MG in NS 50 ML IV SCH (13:55)
[2019-06-15] MEDS: DESYREL PO SCH (20:34)
[2019-06-16] MEDS: XOPENEX NEB INH SCH ×4 (03:21→22:11)
[2019-06-16] MEDS: ATROVENT NEB INH SCH ×4 (03:21→22:11)
[2019-06-16] MEDS: LOPRESSOR PO SCH ×3 (04:27→21:47)
[2019-06-16 07:10] LABS: BASO# 0.02 X1000 (0.0-0.2); BASO% 0.1 % (0.0-0.8); EOS# 0.12 X1000 (0.0-0.7); EOS% 0.8 % (0.0-10.0); HEMATOCRIT 37.9 % (42.0-52.0); HEMOGLOBIN 12.8 g/dL (14.0-18.0); IMM GRAN# 0.07 X1000 (0.0-0.04); IMM GRAN% 0.5 % (0.0-0.5); LYMPH# 1.66 X1000 (1.2-3.4); LYMPH% 11.4 % (20.5-51.1); MCH 35.2 PG (27-31); MCHC 33.8 g/dL (33-37); MCV 104.1 FL (81-99); MONO# 3.81 X1000 (0.11-0.59); MONO% 26.2 % (1.7-9.3); MPV 11.1 FL (7.4-10.4); NEUT# 8.85 X1000 (1.4-6.5); PLT 114 X1000 (130-400); RBC 3.64 XMIL (4.7-6.1); RDW 14.6 % (11.5-14.5); WBC 14.53 X1000 (4.8-10.8)
[2019-06-16 07:35] LABS: AGAP 11; ALB/GLOB RATIO 0.6; ALBUMIN 1.9 g/dL (3.5-5.0); ALKALINE PHOSPHATASE 101 U/L (32-122); BUN 10 mg/dL (8-22); CALCIUM 7.9 mg/dL (8.8-10.2); CHLORIDE 101 mmol/L (98-107); COSMO 272; CREATININE 0.3 mg/dL (0.7-1.2); ESTIMATED GFR > 60; GLUCOSE 89 mg/dL (70-104); GOT 26 U/L (10-34); GPT 22 U/L (10-44); MAGNESIUM 1.9 mg/dL (1.5-2.7); SODIUM 137 mmol/L (136-145); TCO2 25 mmol/L (25-35); TOTAL BILIRUBIN 0.91 mg/dL (0.20-1.00); TOTAL PROTEIN 5.3 g/dL (6.3-8.3)
[2019-06-16 07:41] LABS: BANDS 2 % (0-1); EOS 2 % (1-10); LYMPHS 8 % (21-51); MONO 30 % (1-9); SEGS 58 % (42-75)
[2019-06-16] MEDS: VITAMIN B-1 PO SCH (09:10)
[2019-06-16] MEDS: TUMS PO SCH ×3 (09:10→17:40)
[2019-06-16] MEDS: FOLIC ACID PO SCH (09:10)
[2019-06-16] MEDS: THERA M PLUS PO SCH (09:10)
[2019-06-16] MEDS: LEVAQUIN 750 MG/D5W 750 MG/150 ML IVPB IV SCH (09:10)
[2019-06-16] MEDS: PULMICORT INH SCH ×2 (10:10→21:11)
[2019-06-16] MEDS ORDERED: POTASSIUM CHLORIDE 20% LIQUID PO ONE (12:47)
--- NOTE | 2019-06-16 13:16 | PROGRESS NOTE ---
DATE: 06/16/2019 INTERVAL HISTORY: No acute events overnight. He has been more quiet today and his restraints have been discontinued. SUBJECTIVE: He is more alert and answering questions appropriately. He wants to have some Sprite. We discussed about starting him on a clear liquid diet. He is occasionally coughing. He still has some gurgling sound in his throat. VITALS: Temperature 98.1 degrees, pulse 84, respiratory rate 24, blood pressure 120/78, saturating 96% on 4 L nasal cannula. PHYSICAL EXAMINATION: General: Does not appear in any acute distress. Oral cavity is moist. There are pools of secretions. Lungs: Air entry bilaterally equal. No wheeze. He does have bilateral rhonchi and crackles in the inframammary regions. S1, S2 normal. Not tachycardic. No murmur, rub, or gallop. Abdomen: Soft, nontender. No lower extremity edema. He has a urine catheter. He is alert. He states he is at [facility]. I redirected him that he was transferred to [facility]. He remembers that he went to the [facility] because of chest pain. LABS: Suggestive of worsening leukocytosis. He does have macrocytic anemia and mild thrombocytopenia. His potassium is 3, which I am repleting with liquid potassium. I will also repeat x-ray of his chest tomorrow. ASSESSMENT AND PLAN: 1. Acute delirium due to delirium tremens due to alcohol withdrawal. Continue as needed lorazepam, thiamine, and multivitamin. He appears to be improving now and his restraints have been discontinued. I will start him on a clear liquid diet as well as physical therapy. 2. Bilateral lower lobe pneumonia leading to acute hypoxic respiratory failure on top of baseline chronic obstructive pulmonary disease and tobacco abuse. Continue intravenous levofloxacin, levalbuterol, and ipratropium nebulization, and nicotine patch for tobacco abuse. There were some concerns of urinary tract infection because of frequency. However, urine culture was unremarkable. 3. Chest pain at the time of presentation with sinus tachycardia and baseline left bundle branch block. He had an episode of heart rate of 160 at [facility] and that is why he was transferred to [facility]. Cardiology team currently recommends metoprolol and his tachycardia has resolved. He does have chronic systolic congestive heart failure with an ejection fraction of 35%, with fixed defect in the anteroseptal region and apex according to echocardiogram. I will add low-dose lisinopril to his regimen. 4. Thrombocytopenia, likely because of his alcohol use and transaminitis related to alcohol use, now improving. I will resume his Xarelto for his history of left lower extremity deep venous thrombosis in February 2019. 5. Disposition. I will consult physical therapy and help him try and sit in the chair if possible. After discussion with him, I am also consulting social work rehab. Plan of care discussed with him. Yesterday, I was not able to reach out to his daughter. cc: Kaushal Issa MD
[2019-06-16] MEDS: PRINIVIL PO SCH (13:48)
[2019-06-16] MEDS: THIAMINE 100 MG in NS 50 ML IV SCH (13:54)
[2019-06-16] MEDS: DESYREL PO SCH (21:47)
[2019-06-17] MEDS: ATIVAN IV PRN (01:24)
[2019-06-17] MEDS: XOPENEX NEB INH SCH ×4 (03:32→21:42)
[2019-06-17] MEDS: ATROVENT NEB INH SCH ×4 (03:32→21:42)
[2019-06-17] MEDS ORDERED: NS 250 ML IV ONE (04:47)
[2019-06-17] MEDS: NICODERM PATCH TD PRN (05:27)
[2019-06-17] MEDS: LOPRESSOR PO SCH ×3 (06:57→21:05)
--- NOTE | 2019-06-17 07:16 | Diag Imaging Result Doc PS360 ---
EXAM: CHEST-PORTABLE 06/17/2019 HISTORY: Follow up [facility] TECHNIQUE: AP portable at 0602 COMMENT: Compared to 06/14/2019 there is much worse alveolar opacity in the right upper lobe. Opacities in both lower lobes were present at the time the previous study although there might be some slight worsening on the right. IMPRESSION: Worsened pneumonia particularly in the right upper lobe. Electronically signed by Joel Roberts 06/17/2019 7:14 AM
[2019-06-17 07:18] LABS: BASO# 0.03 X1000 (0.0-0.2); BASO% 0.3 % (0.0-0.8); EOS# 0.15 X1000 (0.0-0.7); EOS% 1.5 % (0.0-10.0); HEMATOCRIT 36.8 % (42.0-52.0); IMM GRAN# 0.11 X1000 (0.0-0.04); IMM GRAN% 1.1 % (0.0-0.5); LYMPH# 1.67 X1000 (1.2-3.4); LYMPH% 16.2 % (20.5-51.1); MCH 34.9 PG (27-31); MCHC 32.6 g/dL (33-37); MONO# 3.52 X1000 (0.11-0.59); MONO% 34.2 % (1.7-9.3); MPV 11.1 FL (7.4-10.4); NEUT# 4.81 X1000 (1.4-6.5); NEUT% 46.7 % (42.2-75.2); PLT 130 X1000 (130-400); RBC 3.44 XMIL (4.7-6.1); RDW 14.8 % (11.5-14.5); WBC 10.29 X1000 (4.8-10.8)
[2019-06-17 07:44] LABS: AGAP 9; ALB/GLOB RATIO 0.8; ALBUMIN 2.1 g/dL (3.5-5.0); ALKALINE PHOSPHATASE 88 U/L (32-122); BUN 11 mg/dL (8-22); CALCIUM 7.6 mg/dL (8.8-10.2); CHLORIDE 103 mmol/L (98-107); COSMO 282; CREATININE 0.3 mg/dL (0.7-1.2); ESTIMATED GFR > 60; GLUCOSE 125 mg/dL (70-104); GOT 27 U/L (10-34); GPT 21 U/L (10-44); MAGNESIUM 1.7 mg/dL (1.5-2.7); POTASSIUM 2.9 mmol/L (3.5-5.1); SODIUM 141 mmol/L (136-145); TCO2 29 mmol/L (25-35); TOTAL BILIRUBIN 0.85 mg/dL (0.20-1.00); TOTAL PROTEIN 4.6 g/dL (6.3-8.3)
[2019-06-17 07:59] LABS: EOS 2 % (1-10); LYMPHS 16 % (21-51); MONO 22 % (1-9); SEGS 58 % (42-75)
[2019-06-17] MEDS: PULMICORT INH SCH ×2 (08:22→20:10)
[2019-06-17] MEDS: VITAMIN B-1 PO SCH (09:04)
[2019-06-17] MEDS: FOLIC ACID PO SCH (09:04)
[2019-06-17] MEDS: LEVAQUIN 750 MG/D5W 750 MG/150 ML IVPB IV SCH (09:04)
[2019-06-17] MEDS: TUMS PO SCH ×3 (09:04→18:02)
[2019-06-17] MEDS: XARELTO PO SCH (09:04)
[2019-06-17] MEDS: PRINIVIL PO SCH (09:04)
[2019-06-17] MEDS: THERA M PLUS PO SCH (09:05)
[2019-06-17] MEDS: THIAMINE 100 MG in NS 50 ML IV SCH (14:16)
[2019-06-17] MEDS ORDERED: KLOR-CON PO ONE (18:43)
[2019-06-17] MEDS: AZACTAM 1 GM in NS 50 ML IV SCH (19:20)
[2019-06-17] MEDS: DESYREL PO SCH (21:05)
[2019-06-17] MEDS: ZYVOX 600 MG/D5W 600 MG/300 ML IVPB IV SCH (21:05)
--- NOTE | 2019-06-17 21:06 | PROGRESS NOTE ---
DATE: 06/17/2019 SUBJECTIVE: The patient is resting comfortably in bed. He is slightly confused. OBJECTIVE: Vital signs: Temperature 98.4 degrees, blood pressure 96/64, heart rate 81, respirations 20, O2 saturation 97% on 3 L nasal cannula. General: This is a chronically ill- appearing elderly male lying in bed in no acute distress. Heart: S1, S2 normal. Regular rate and rhythm. Lungs: Coarse breath sounds bilaterally. Abdomen: Positive bowel sounds. Soft, nontender, nondistended. Extremities: No edema, no cyanosis. Neurological: The patient is awake but confused. He is able to move all 4 extremities. LABORATORY DATA: A white blood cell count 10, hemoglobin 12, hematocrit 36, platelets 130,000. Sodium 141, potassium 2.9, chloride 103, CO2 29, BUN 11, creatinine 0.3 glucose 125, calcium 7.6, magnesium 1.7, albumin 2.1. IMAGING: Chest x-ray shows worsened pneumonia in the right upper lobe. ASSESSMENT AND PLAN: 1. Delirium tremens due to alcohol withdrawal, slowly improving. Continue on multivitamins and Ativan as needed. 2. Acute hypoxemic respiratory failure. This is likely secondary to pneumonia. We will continue to treat the underlying infection. 3. Pneumonia. The x-ray today shows worsening. We will adjust the patient's antibiotic therapy. We will also check immunoglobulin levels. 4. Thrombocytopenia. Resolved. We will continue to monitor closely. 5. Hypokalemia. We will replace the patient's potassium. 6. Anemia. Stable. 7. Alcohol dependence. Aware. 8. Disposition. The patient will likely need inpatient rehabilitation. Clinical Director is working on placement for the patient. cc: Rhina Garcia MD MTDD
[2019-06-18] MEDS: AZACTAM 1 GM in NS 50 ML IV SCH ×3 (03:02→18:45)
[2019-06-18] MEDS: ATROVENT NEB INH SCH ×3 (03:38→23:07)
[2019-06-18] MEDS: XOPENEX NEB INH SCH ×3 (03:38→23:07)
[2019-06-18] MEDS: LOPRESSOR PO SCH ×3 (05:18→20:36)
[2019-06-18 06:57] LABS: BASO# 0.05 X1000 (0.0-0.2); BASO% 0.6 % (0.0-0.8); EOS# 0.19 X1000 (0.0-0.7); EOS% 2.1 % (0.0-10.0); IMM GRAN# 0.15 X1000 (0.0-0.04); IMM GRAN% 1.7 % (0.0-0.5); LYMPH# 1.51 X1000 (1.2-3.4); LYMPH% 16.7 % (20.5-51.1); MCH 34.7 PG (27-31); MCHC 32.4 g/dL (33-37); MCV 106.9 FL (81-99); MONO# 3.02 X1000 (0.11-0.59); MONO% 33.3 % (1.7-9.3); MPV 10.7 FL (7.4-10.4); NEUT# 4.14 X1000 (1.4-6.5); NEUT% 45.6 % (42.2-75.2); PLT 182 X1000 (130-400); RBC 3.46 XMIL (4.7-6.1); RDW 14.5 % (11.5-14.5); WBC 9.06 X1000 (4.8-10.8)
[2019-06-18 07:15] LABS: AGAP 8; BUN 9 mg/dL (8-22); CALCIUM 8.3 mg/dL (8.8-10.2); CHLORIDE 103 mmol/L (98-107); COSMO 280; CREATININE 0.3 mg/dL (0.7-1.2); ESTIMATED GFR > 60; GLUCOSE 101 mg/dL (70-104); MAGNESIUM 1.7 mg/dL (1.5-2.7); PHOSPHORUS 2.4 mg/dL (2.7-4.5); POTASSIUM 3.4 mmol/L (3.5-5.1); SODIUM 141 mmol/L (136-145); TCO2 30 mmol/L (25-35)
[2019-06-18] MEDS: ZYVOX 600 MG/D5W 600 MG/300 ML IVPB IV SCH ×2 (08:09→20:36)
[2019-06-18] MEDS: VITAMIN B-1 PO SCH (08:09)
[2019-06-18] MEDS: XARELTO PO SCH (08:09)
[2019-06-18] MEDS: TUMS PO SCH ×3 (08:10→16:24)
[2019-06-18] MEDS: THERA M PLUS PO SCH (08:10)
[2019-06-18] MEDS: PRINIVIL PO SCH (08:10)
[2019-06-18] MEDS: FOLIC ACID PO SCH (08:10)
[2019-06-18 08:23] LABS: EOS 2 % (1-10); LARGE PLATELETS 2+; LYMPHS 12 % (21-51); MONO 26 % (1-9); SEGS 58 % (42-75)
[2019-06-18] MEDS ORDERED: MAGNESIUM SULFATE 2 GM/S.W.I. 2 GM/50 ML IVPB IV ONE (09:10)
[2019-06-18] MEDS: PULMICORT INH SCH ×2 (10:54→23:07)
[2019-06-18] MEDS: THIAMINE 100 MG in NS 50 ML IV SCH (13:13)
[2019-06-18] MEDS: DESYREL PO SCH (20:36)
[2019-06-18] MEDS ORDERED: POTASSIUM PHOSPHATE 30 MMOL in NS 250 ML IV ONE (20:43)
[2019-06-19] MEDS: XOPENEX NEB INH SCH ×5 (03:10→19:08)
[2019-06-19] MEDS: ATROVENT NEB INH SCH ×5 (03:10→19:08)
[2019-06-19] MEDS: AZACTAM 1 GM in NS 50 ML IV SCH ×3 (03:36→19:48)
[2019-06-19] MEDS: LOPRESSOR PO SCH ×3 (04:37→20:15)
[2019-06-19] MEDS ORDERED: CALMOSEPTINE OINTMENT TOP PRN (04:50)
[2019-06-19 07:23] LABS: BASO# 0.06 X1000 (0.0-0.2); BASO% 0.7 % (0.0-0.8); EOS# 0.26 X1000 (0.0-0.7); EOS% 2.9 % (0.0-10.0); HEMATOCRIT 38.5 % (42.0-52.0); HEMOGLOBIN 12.5 g/dL (14.0-18.0); IMM GRAN# 0.18 X1000 (0.0-0.04); LYMPH# 1.61 X1000 (1.2-3.4); LYMPH% 17.9 % (20.5-51.1); MCH 34.7 PG (27-31); MCHC 32.5 g/dL (33-37); MCV 106.9 FL (81-99); MONO# 2.48 X1000 (0.11-0.59); MONO% 27.6 % (1.7-9.3); MPV 10.2 FL (7.4-10.4); NEUT# 4.41 X1000 (1.4-6.5); NEUT% 48.9 % (42.2-75.2); PLT 209 X1000 (130-400); RDW 14.5 % (11.5-14.5)
[2019-06-19 07:40] LABS: AGAP 11; ALBUMIN 2.1 g/dL (3.5-5.0); BUN 7 mg/dL (8-22); CALCIUM 8.1 mg/dL (8.8-10.2); CHLORIDE 102 mmol/L (98-107); COSMO 282; CREATININE 0.3 mg/dL (0.7-1.2); ESTIMATED GFR > 60; GLUCOSE 85 mg/dL (70-104); MAGNESIUM 1.7 mg/dL (1.5-2.7); PHOSPHORUS 4.4 mg/dL (2.7-4.5); POTASSIUM 3.5 mmol/L (3.5-5.1); SODIUM 143 mmol/L (136-145); TCO2 30 mmol/L (25-35)
[2019-06-19 08:01] LABS: ANISOCYTOSIS 2+; EOS 5 % (1-10); LYMPHS 18 % (21-51); MONO 27 % (1-9); POIKILOCYTOSIS 1+; SEGS 50 % (42-75); TARGET CELLS 1+
[2019-06-19] MEDS: PULMICORT INH SCH ×2 (09:56→19:07)
[2019-06-19] MEDS: TUMS PO SCH ×3 (10:08→17:12)
[2019-06-19] MEDS: VITAMIN B-1 PO SCH (10:08)
[2019-06-19] MEDS: XARELTO PO SCH (10:08)
[2019-06-19] MEDS: FOLIC ACID PO SCH (10:08)
[2019-06-19] MEDS: THERA M PLUS PO SCH (10:09)
[2019-06-19] MEDS: PRINIVIL PO SCH (10:09)
[2019-06-19] MEDS: ZYVOX 600 MG/D5W 600 MG/300 ML IVPB IV SCH ×2 (10:09→20:15)
[2019-06-19] MEDS ORDERED: IMODIUM PO PRN (11:08)
[2019-06-19] MEDS: CULTURELLE PO SCH ×2 (11:53→20:15)
[2019-06-19] MEDS: THIAMINE 100 MG in NS 50 ML IV SCH (14:20)
[2019-06-19] MEDS ORDERED: LASIX IV ONE (16:59)
[2019-06-19] MEDS: DESYREL PO SCH (20:15)
--- NOTE | 2019-06-19 21:49 | PROGRESS NOTE ---
DATE: 06/19/2019 SUBJECTIVE: The patient is sitting up, and more awake and alert today. He does complain of persistent diarrhea. OBJECTIVE: Vital Signs: Temperature 98.7 degrees, blood pressure 104/57, heart rate 95, respirations 28, O2 saturation is 96% on 3 L nasal cannula. Intake 751, output 800. General: This is a chronically ill-appearing, elderly male, lying in bed in no acute distress. Heart: S1, S2 normal. Lungs: Coarse breath sounds with crackles bilaterally. Abdomen: Positive bowel sounds. Soft, nontender, nondistended. Extremities: Edema 1+ bilaterally. Neurologic: The patient is oriented to self, but is still confused about where he is. LABORATORY DATA: White blood cell count 9, hemoglobin 12, hematocrit 38, platelets 209,000. Sodium 143, potassium 3.5, chloride 102, CO2 of 30, BUN 7, creatinine 0.3, glucose 85, magnesium 1.7. ASSESSMENT AND PLAN: 1. Diarrhea. Stool for Clostridium difficile assay was noted to be negative. We will start the patient on Imodium. 2. Acute on chronic hypoxemic respiratory failure. Likely secondary to pneumonia and volume overload. Continue to treat the underlying issue. 3. Right lobe pneumonia. Continue with broad-spectrum antibiotic therapy, supplemental oxygen, and bronchodilator therapy. 4. Volume overload. Will give the patient a dose of Lasix today. 5. Severe protein-calorie malnutrition. We will continue with Ensure with each meal. 6. Alcohol dependence. Aware. 7. Anemia. Stable. 8. Disposition. Once the patient is medically stable, he will be discharged to rehab. cc: Rhina Garcia MD
[2019-06-20] MEDS: ATROVENT NEB INH SCH ×3 (03:09→07:38)
[2019-06-20] MEDS: XOPENEX NEB INH SCH ×5 (03:09→23:34)
[2019-06-20] MEDS: AZACTAM 1 GM in NS 50 ML IV SCH ×2 (05:43→14:37)
[2019-06-20] MEDS: LOPRESSOR PO SCH (05:44)
--- NOTE | 2019-06-20 06:19 | Diag Imaging Result Doc PS360 ---
EXAM: CHEST-PORTABLE HISTORY: pulmonary edema TECHNIQUE: Chest single view COMPARISON: 06/17/2019 FINDINGS: Bilateral infiltrates persist although they are less prominent in the mid right lung on the current study. Heart remains mildly prominent. No pleural effusions identified. There are multiple old right rib fractures. IMPRESSION: Mild interval improvement Electronically signed by Ronal Flowers 06/20/2019 6:16 AM
[2019-06-20 07:24] LABS: BASO# 0.08 X1000 (0.0-0.2); BASO% 0.6 % (0.0-0.8); EOS# 0.25 X1000 (0.0-0.7); HEMATOCRIT 37.9 % (42.0-52.0); HEMOGLOBIN 12.3 g/dL (14.0-18.0); IMM GRAN# 0.22 X1000 (0.0-0.04); IMM GRAN% 1.7 % (0.0-0.5); LYMPH# 1.55 X1000 (1.2-3.4); LYMPH% 12.2 % (20.5-51.1); MCH 34.4 PG (27-31); MCHC 32.5 g/dL (33-37); MCV 105.9 FL (81-99); MONO# 3.07 X1000 (0.11-0.59); MONO% 24.2 % (1.7-9.3); MPV 10.4 FL (7.4-10.4); NEUT# 7.49 X1000 (1.4-6.5); NEUT% 59.3 % (42.2-75.2); PLT 229 X1000 (130-400); RBC 3.58 XMIL (4.7-6.1); WBC 12.66 X1000 (4.8-10.8)
[2019-06-20] MEDS: PULMICORT INH SCH (07:38)
[2019-06-20 08:11] LABS: AGAP 9; ALBUMIN 2.1 g/dL (3.5-5.0); BUN 7 mg/dL (8-22); CALCIUM 8.1 mg/dL (8.8-10.2); CHLORIDE 96 mmol/L (98-107); COSMO 271; CREATININE 0.3 mg/dL (0.7-1.2); ESTIMATED GFR > 60; GLUCOSE 92 mg/dL (70-104); POTASSIUM 3.1 mmol/L (3.5-5.1); SODIUM 137 mmol/L (136-145); TCO2 32 mmol/L (25-35)
[2019-06-20 08:26] LABS: ANISOCYTOSIS 3+; EOS 2 % (1-10); LYMPHS 13 % (21-51); MONO 21 % (1-9); SEGS 63 % (42-75)
[2019-06-20 08:27] LABS: LARGE PLATELETS OCCASIONAL
[2019-06-20] MEDS ORDERED: POTASSIUM CHLORIDE 20% LIQUID PO ONE (08:47)
[2019-06-20] MEDS ORDERED: LASIX IV SCH (09:00)
[2019-06-20] MEDS ORDERED: MAGNESIUM SULFATE 2 GM/S.W.I. 2 GM/50 ML IVPB IV ONE ×2 (10:37→17:37)
[2019-06-20] MEDS: ZYVOX 600 MG/D5W 600 MG/300 ML IVPB IV SCH ×2 (10:45→20:54)
[2019-06-20] MEDS: ALBUMIN 25% IV SCH ×2 (12:14→13:00)
[2019-06-20] MEDS ORDERED: NS 1,000 ML ONE (13:40)
[2019-06-20] MEDS ORDERED: CORDARONE ONE (14:00)
[2019-06-20] MEDS ORDERED: EPINEPHRINE SYRINGE ONE (14:00)
[2019-06-20] MEDS ORDERED: NEO-SYNEPHRINE 50 MG in NS 250 ML IV SCH (14:00)
[2019-06-20] MEDS: NEO-SYNEPHRINE 50 MG in NS 250 ML IV SCH (14:00)
[2019-06-20] MEDS ORDERED: CALCIUM CHLORIDE SYRINGE ONE (14:00)
[2019-06-20] MEDS ORDERED: SODIUM BICARBONATE 8.4% ONE (14:00)
[2019-06-20] MEDS ORDERED: SOLU-MEDROL IV ONE (14:04)
--- NOTE | 2019-06-20 14:06 | Diag Imaging Result Doc PS360 ---
CHEST-PORTABLE - 06/20/2019 1:58 PM INDICATION: post code COMPARISON: 5:53 AM FINDINGS: There is an endotracheal tube in good position at T4. Stable cardiomegaly and pulmonary vascular congestion. Stable right upper lobe infiltrate. There is actually improvement in the bilateral lower lobe infiltrates. No large pleural effusion. IMPRESSION: No complication from tube placement. Electronically signed by Duran Parker 06/20/2019 2:03 PM
--- NOTE | 2019-06-20 14:11 | EKG Report ---
Test Performed on : 06/20/2019 1:55:01 PM Test Reason : post code Blood Pressure : / mmHG Vent. Rate : 091 BPM Atrial Rate : 091 BPM P-R Int : 118 ms QRS Dur : 132 ms QT Int : 390 ms P-R-T Axes : 012 012 176 degrees QTc Int : 479 ms Normal sinus rhythm. Possible Left atrial enlargement Left bundle branch block Abnormal ECG When compared with ECG of 12-JUN-2019 19:14, (Unconfirmed) No significant change was found Confirmed by Stephen PENA, Navid Emery ([id number]) on 06/22/2019 9:00:41 AM
[2019-06-20] MEDS ORDERED: NS 1,000 ML IV SCH (14:15)
[2019-06-20] MEDS ORDERED: LEVOPHED 8 MG in D5 1/2 NS 250 ML IV SCH (14:30)
[2019-06-20] MEDS: THIAMINE 100 MG in NS 50 ML IV SCH (14:39)
[2019-06-20 14:46] LABS: ALLEN TEST YES; BLOOD TYPE ARTERIAL; HCO3-(ACT) 27.2 mmoll (20.0-26.0); METHB 1.3 % (0.0-1.5); O2(CT) 19.6 mL/dL (15.0-23.0); O2HB 96.7 % (95.0-99.0); PO2(98.6) 203 mmHg (60-100); SAMPLE BLOOD; SAO2 100.1 % (95.0-100.0); SRATE 18 BPM; THB 14.1 g/dL (11.5-17.4); TVOL 500 mL; pH(98.6) 7.34 (7.35-7.45)
[2019-06-20 14:48] LABS: PCO2(98.6) 56 mmHg (35-45)
[2019-06-20 14:49] LABS: MODALITY VENTILATOR
[2019-06-20 14:52] LABS: AGAP 18; ALBUMIN 2.3 g/dL (3.5-5.0); BUN 7 mg/dL (8-22); CHLORIDE 93 mmol/L (98-107); COSMO 277; CREATININE 0.5 mg/dL (0.7-1.2); ESTIMATED GFR > 60; GLUCOSE 165 mg/dL (70-104); PHOSPHORUS 6.8 mg/dL (2.7-4.5); POTASSIUM 3.9 mmol/L (3.5-5.1); SODIUM 138 mmol/L (136-145); TCO2 27 mmol/L (25-35)
[2019-06-20 15:06] LABS: BASO# 0.25 X1000 (0.0-0.2); BASO% 0.8 % (0.0-0.8); EOS# 0.24 X1000 (0.0-0.7); EOS% 0.8 % (0.0-10.0); HEMATOCRIT 43.2 % (42.0-52.0); HEMOGLOBIN 13.8 g/dL (14.0-18.0); IMM GRAN# 2.31 X1000 (0.0-0.04); IMM GRAN% 7.8 % (0.0-0.5); LYMPH# 1.73 X1000 (1.2-3.4); LYMPH% 5.8 % (20.5-51.1); MCH 34.6 PG (27-31); MCHC 31.9 g/dL (33-37); MCV 108.3 FL (81-99); MONO# 3.02 X1000 (0.11-0.59); MONO% 10.1 % (1.7-9.3); MPV 10.2 FL (7.4-10.4); NEUT# 22.22 X1000 (1.4-6.5); NEUT% 74.7 % (42.2-75.2); PLT 256 X1000 (130-400); RBC 3.99 XMIL (4.7-6.1); RDW 14.2 % (11.5-14.5); WBC 29.77 X1000 (4.8-10.8)
[2019-06-20 15:07] LABS: MAGNESIUM 1.8 mg/dL (1.5-2.7)
[2019-06-20 15:33] LABS: ALB/GLOB RATIO 0.9; ALBUMIN 2.5 g/dL (3.5-5.0); DIRECT BILIRUBIN 0.4 mg/dL (0.00-0.20); TOTAL BILIRUBIN 1.23 mg/dL (0.20-1.00); TOTAL PROTEIN 5.3 g/dL (6.3-8.3)
[2019-06-20 15:44] LABS: BANDS 5 % (0-1); EOS 2 % (1-10); LYMPHS 8 % (21-51); MONO 5 % (1-9); SEGS 77 % (42-75)
--- NOTE | 2019-06-20 15:52 | PROGRESS NOTE ---
DATE: 06/20/2019 SUBJECTIVE: The patient suffered abrupt cardiopulmonary arrest earlier this afternoon and has been resuscitated. Initial rhythm reportedly was PEA. He was reported not to have any chest symptoms prior to the episode. He has been resuscitated and is now in the intensive care unit on ventilator and unresponsive. He is currently on Gucci-Synephrine for blood pressure support. OBJECTIVE: Vital Signs: Blood pressure 121/82, heart rate 95 and regular with ECG monitor showing sinus rhythm with left bundle branch block. Oxygen saturation 96%. Neck: Jugular distention cannot be appreciated. Chest: Clear to auscultation anteriorly. Cardiac Exam: Reveals a regular rate and rhythm without appreciable murmur or gallop. Neck: Jugular venous distention cannot be appreciated. Lungs: Auscultation of the chest reveals scattered rhonchi. Cardiac: Reveals a regular rate and rhythm without appreciable murmur or gallop. Extremities: Without edema. LABORATORY DATA: Includes a white blood cell count 29.77, hematocrit 43.2, hemoglobin 13.8, platelet count 256,000. Lactate 8.0. Arterial blood gas with pH 7.34, pCO2 56, PO2 of 203 on ventilator with FiO2 of 100%. Sodium 138, potassium 3.9, chloride 93, carbon dioxide 27, BUN 7, creatinine 0.5. Glucose 165. Troponin T less than 0.01. CPK 68, albumin 2.3. IMPRESSION: 1. Status post cardiopulmonary arrest during hospitalization for treatment of pneumonia with chronic cardiomyopathy. Etiology for cardiopulmonary arrest not entirely clear. 2. Suspected pneumonia for which patient has been treated for the past weeks with parenteral antibiotics. 3. Recent problems with diarrhea. 4. Cardiomyopathy with left ventricular ejection fraction 35 to 40 percent. This is chronic. Patient has associated left bundle branch block. 5. Severe protein calorie malnutrition. 6. Alcohol dependence. 7. History of deep venous thrombosis back in February of this year. Patient has been on Xarelto apparently for this but compliance is not certain. RECOMMENDATIONS: 1. Continue supportive care. 2. Repeat limited echocardiography to assess ventricular function and gain insight into potential etiology for cardiopulmonary arrest. 3. Venous Doppler study. 4. Given previous DVT and cardiopulmonary arrest, anticoagulation would appear prudent. He has been on Xarelto. Favor switching to subcutaneous Lovenox 1 mg/kg subcutaneously q.12. cc: Wei Mendoza MD
[2019-06-20] MEDS: NS 1,000 ML IV SCH (16:55)
[2019-06-20] MEDS: LOVENOX SUBQ SCH (16:56)
--- NOTE | 2019-06-20 18:11 | ECHO REPORT ---
ORDER DATE: 06/20/2019 INDICATION: Patient with cardiac arrest and history of cardiomyopathy. Previous echo dated 06/12/2019. DESCRIPTION: The study was done at the bedside after a cardiac resuscitation process. The patient's acoustic windows are incredibly limited. I cannot exclude the possibility of a small pericardial effusion. I cannot comment on left ventricular size or left ventricular function. I do not see any valvular structures. SUMMARY: This echocardiographic study is basically nondiagnostic. If the primary service needs information pertaining to valvular function, then a transesophageal echocardiogram has to be requested. cc: MD Wei Faye MD
[2019-06-20] MEDS ORDERED: AZACTAM 2 GM in NS 50 ML IV SCH (20:00)
--- NOTE | 2019-06-20 20:10 | INFECTIOUS DISEASE CONSULT REP ---
DATE: 06/20/2019 CONCLUSION: The patient is unable to give a history. No family member is present. The information I got was from the computer. The patient was admitted to the hospital with shortness of breath, diarrhea, and a dizzy spell. Today, on the floor, he had a cardiac arrest. He is intubated and has been put in intensive care unit. RECOMMENDATION: Continue Zyvox and increase the dose of aztreonam. PAST MEDICAL HISTORY: 1. Stroke. 2. Myocardial infarction. 3. Hypertension. 4. Peripheral vascular disease. 5. Seizure disorder. 6. Prostate cancer. 7. Essential tremors. SURGICAL HISTORY: 1. Prostatectomy. 2. Left inguinal hernia repair. 3. Right wrist, elbow, and shoulder repair. SOCIAL HISTORY: The patient is a pack-a-day smoker for 25+ years. He also drinks alcoholic beverages. FAMILY HISTORY: Positive for hypertension and myocardial infarction. ALLERGIES: The patient is allergic to cephalexin, manifested by anaphylaxis. MEDICATIONS TAKEN AT HOME: Include Lasix, Lopressor, Xarelto, and Desyrel. LABORATORY AND X-RAY STUDIES: CBC with a white count of 12,660, hemoglobin 12.3, platelet count 229,000. Blood gases show arterial blood gases with a pH of 7.34, PO2 of 203, and a PCO2 of 56. Creatinine 0.5, GFR is greater than 60. IgG and IgA are normal. Stool for Clostridium difficile and culture is negative. Blood cultures are pending. Prior blood and urine cultures were negative. Chest x-ray shows pulmonary edema with bilateral infiltrates. Echocardiogram showed no vegetations. PHYSICAL EXAMINATION: Vital Signs: Temperature is 98.4 degrees, pulse 91, respirations 20, blood pressure 107/73. The patient weighs 159 pounds. General: This is an ill- appearing, elderly male. He is intubated. He appears sedated, but he actually has not had any sedation. Head, eyes, ears, nose, and throat: There is no drainage from the nose or ears. He has an orotracheal tube in place. Neck: No meningismus. Lungs: Clear to auscultation. Cardiovascular: Heart rate is regular. Abdomen: Soft and does not appear to be tender. Neurologic: The patient is obtunded. He did not respond to verbal stimuli. He did not have any tremor. Integument: No rash noted. Thank you for the consult. Shahzad#: [id number] cc: Candido Menard MD [facility]
--- NOTE | 2019-06-20 20:32 | PROGRESS NOTE ---
DATE: 06/20/2019 SUBJECTIVE: This afternoon. The patient was noted to be unresponsive in his room shortly after his family arrived. A code blue was called and ACLS protocol was initiated. The patient was coded for about 20 minutes with return of spontaneous circulation. The patient was then transferred to the ICU for further stabilization. OBJECTIVE: Vital Signs: Temperature 98.6 degrees, blood pressure 156/98, heart rate 92, respirations 18, O2 saturations 100% on the mechanical ventilator, intake 751, output 2.4 L. General: This is a chronically ill-appearing elderly male currently sedated on the ventilator. Heart: S1, S2 normal. Tachycardic. Lungs: Coarse breath sounds with crackles bilaterally. Abdomen: Positive bowel sounds. Soft, nontender, nondistended. Extremities: Trace pedal edema. The patient's extremities were noted to be erythematous. Neurologic: The patient is currently unresponsive. LABORATORY DATA: White blood cell count 29, hemoglobin 13, hematocrit 43, platelets 256,000. ABG: pH 7.34, pCO2 56, pO2 203, bicarb 27, lactate 8, sodium 138, potassium 3.9, chloride 93, CO2 27, BUN 7, creatinine 0.5, glucose 165, magnesium 1.8, AST 81, ALT 39, alkaline phosphatase 97. Troponin less than 0.01, albumin 2.5. Chest x-ray shows pulmonary vascular congestion. A stable right upper lobe infiltrate. Bilateral lobe infiltrates. ASSESSMENT AND PLAN: 1. Acute hypoxemic respiratory failure. The patient suffered a cardiac arrest and was subsequently intubated during the resuscitation event. We will continue with broad-spectrum antibiotics and ventilatory support and bronchodilator therapy. We will also consult with the book store associate and Infectious Disease. 2. Status post cardiac arrest. Continue with supportive care. Cardiology is following. 3. Pneumonia. Continue with antibiotic therapy as directed by Dr. Menard. Repeat blood cultures and sputum Gram stain and culture are currently pending. 4. Septic shock. The patient is currently on Gucci-Synephrine and IV fluids. Continue with treatment of the underlying infection. 5. Cardiomyopathy. Aware. 6. Alcohol dependence. Aware. 7. Hypomagnesemia. We will give the patient another dose of magnesium sulfate. 8. History of deep venous thrombosis. The patient was on Xarelto, but now that he is n.p.o., he has been transitioned to Lovenox. 9. Gastrointestinal prophylaxis. We will start the patient on IV Protonix. DISPOSITION: I discussed the overall prognosis with the patient's daughter and ex-. At this time, they stated that the patient may have some paperwork at the bank that delineates his wishes. At this time, the patient will remain a full code. The patient's family was advised that the patient is critically ill with a high risk of mortality. cc: Rhina Garcia MD MTDD
--- NOTE | 2019-06-20 22:13 | Extremity Venous Study ---
PROCEDURE NAME: Venous U/S Bilateral Legs - 06/20/2019 PROCEDURE: Bilateral lower extremity venous ultrasound. INTERSTATE BUS DRIVER: Reema. REQUESTING PHYSICIAN: Unknown. INDICATION: Cardiac arrest with a history of a left leg DVT. FINDINGS: The deep and superficial veins were visualized bilaterally. In the left popliteal vein, there is wall thickening consistent with a small amount of chronic DVT here. There is also chronic wall thickening in the bilateral greater saphenous veins. IMPRESSION: When compared to previous, the prior noted acute deep vein thrombosis is not clearly demonstrated, but there are chronic changes in the left popliteal and bilateral greater saphenous vein consistent with chronic deep and superficial thrombus. cc: MD Wei Fay MD
[2019-06-20] MEDS: MORPHINE IV PRN (22:32)
[2019-06-21] MEDS: ATIVAN IV PRN ×6 (00:20→23:06)
[2019-06-21] MEDS: NS 1,000 ML IV SCH ×2 (00:25→17:40)
[2019-06-21 01:02] LABS: AGAP 17; BUN 14 mg/dL (8-22); CALCIUM 8.8 mg/dL (8.8-10.2); CHLORIDE 98 mmol/L (98-107); COSMO 286; CREATININE 0.7 mg/dL (0.7-1.2); ESTIMATED GFR > 60; GLUCOSE 142 mg/dL (70-104); MAGNESIUM 2.2 mg/dL (1.5-2.7); POTASSIUM 4.4 mmol/L (3.5-5.1); SODIUM 142 mmol/L (136-145); TCO2 27 mmol/L (25-35)
[2019-06-21] MEDS: AZACTAM 2 GM in NS 100 ML IV SCH ×3 (03:51→19:17)
[2019-06-21] MEDS: XOPENEX NEB INH SCH ×4 (04:18→21:18)
[2019-06-21 04:28] LABS: ALLEN TEST YES; BE 8.2 mmoll (-3.0-3.0); BLOOD TYPE ARTERIAL; HCO3-(ACT) 31.3 mmoll (20.0-26.0); METHB 1.2 % (0.0-1.5); O2(CT) 17.7 mL/dL (15.0-23.0); O2HB 95.8 % (95.0-99.0); PCO2(98.6) 40 mmHg (35-45); PO2(98.6) 90 mmHg (60-100); SAMPLE BLOOD; SRATE 18 BPM; THB 13.1 g/dL (11.5-17.4); TVOL 500 mL; pH(98.6) 7.51 (7.35-7.45)
[2019-06-21 04:29] LABS: MODALITY VENTILATOR
[2019-06-21] MEDS: LOVENOX SUBQ SCH ×2 (06:04→17:39)
[2019-06-21] MEDS: MORPHINE IV PRN (06:08)
[2019-06-21] MEDS: PROTONIX IV SCH (06:08)
--- NOTE | 2019-06-21 06:27 | EKG Report ---
Test Performed on : 06/21/2019 05:39:27 AM Test Reason : cardiac arrest/chronic LBBB Blood Pressure : / mmHG Vent. Rate : 118 BPM Atrial Rate : 118 BPM P-R Int : 118 ms QRS Dur : 126 ms QT Int : 380 ms P-R-T Axes : -23 007 163 degrees QTc Int : 532 ms Sinus tachycardia. with occasional premature ventricular complexes. Left bundle branch block Abnormal ECG When compared with ECG of 21-JUN-2019 05:37, (Unconfirmed) Previous ECG has undetermined rhythm, needs review Confirmed by Stephen PENA, Navid Emery ([id number]) on 06/24/2019 7:38:56 AM
[2019-06-21 06:30] LABS: BASO# 0.04 X1000 (0.0-0.2); BASO% 0.1 % (0.0-0.8); EOS# 0.01 X1000 (0.0-0.7); HEMATOCRIT 39.7 % (42.0-52.0); HEMOGLOBIN 13.1 g/dL (14.0-18.0); IMM GRAN# 0.55 X1000 (0.0-0.04); LYMPH# 2.01 X1000 (1.2-3.4); LYMPH% 7.3 % (20.5-51.1); MCH 35.2 PG (27-31); MCV 106.7 FL (81-99); MONO# 2.65 X1000 (0.11-0.59); MONO% 9.6 % (1.7-9.3); NEUT# 22.31 X1000 (1.4-6.5); PLT 254 X1000 (130-400); RBC 3.72 XMIL (4.7-6.1); RDW 14.4 % (11.5-14.5); WBC 27.57 X1000 (4.8-10.8)
[2019-06-21 06:34] LABS: AGAP 14; BUN 16 mg/dL (8-22); CALCIUM 8.3 mg/dL (8.8-10.2); CHLORIDE 99 mmol/L (98-107); COSMO 283; CREATININE 0.6 mg/dL (0.7-1.2); ESTIMATED GFR > 60; GLUCOSE 117 mg/dL (70-104); PHOSPHORUS 3.8 mg/dL (2.7-4.5); POTASSIUM 4.6 mmol/L (3.5-5.1); SODIUM 141 mmol/L (136-145); TCO2 28 mmol/L (25-35)
[2019-06-21 07:12] LABS: LYMPHS 12 % (21-51); MONO 4 % (1-9); SEGS 82 % (42-75)
--- NOTE | 2019-06-21 07:15 | Diag Imaging Result Doc PS360 ---
CHEST-PORTABLE - 06/21/2019 INDICATION: dyspnea COMPARISON: 06/20/2019 FINDINGS: Stable endotracheal tube in good position. There is mild cardiomegaly. There is significant worsening infiltrate or atelectasis in the left lower lobe. Stable dense infiltrate in the right upper lobe. Stable patchy perihilar infiltrates and right basilar infiltrate as well. There are probably small pleural effusions. IMPRESSION: Worsening atelectasis or infiltrate in the left lower lobe. Electronically signed by Duran Parker 06/21/2019 7:13 AM
[2019-06-21] MEDS: ZYVOX 600 MG/D5W 600 MG/300 ML IVPB IV SCH ×2 (08:06→20:43)
--- NOTE | 2019-06-21 08:08 | Diag Imaging Result Doc PS360 ---
CT HEAD W/O CONTRAST - 06/21/2019 INDICATION: Post-Cardiac Arrest,Poss.Seizure like activity COMPARISON: 06/11/2019 FINDINGS: Stable old stroke in the medial right occipital lobe. The ventricles and sulci otherwise remain normal. There is mild chronic microvascular disease. No intracranial mass or hemorrhage. The skull is intact. The sinuses are clear. IMPRESSION: No acute disease or change from prior. This exam was performed using automated exposure control, adjustment of mA or kV according to patient size, and/or use of iterative reconstruction technique Electronically signed by Duran Parker 06/21/2019 8:06 AM
[2019-06-21] MEDS: NS NEB INH SCH ×2 (09:24→15:31)
[2019-06-21] MEDS: KEPPRA 500 MG in NS 100 ML IV SCH ×2 (10:18→20:43)
[2019-06-21] MEDS: THIAMINE 100 MG in NS 50 ML IV SCH (12:35)
--- NOTE | 2019-06-21 13:35 | CARDIOLOGY PROGRESS NOTE ---
DATE: 06/21/2019 CHIEF COMPLAINT: Unresponsiveness. Low blood pressure. SUBJECTIVE: Mr. Velasco suffered an episode of cardiopulmonary arrest yesterday. Seemingly this had some temporal connection with infusion of albumin. The patient remains intubated and he is having some persistent twitching that involves the orbicular muscles of the eyes and the upper part of the chest and left side of the neck. This happens periodically. It could be a form of a seizure. The patient has been started already on Ativan and the primary service has initiated levetiracetam IV. He is unresponsive. He is currently on IV Gucci-Synephrine. OBJECTIVE: Vital Signs: Temperature is 98.4, pulse rate 101 beats per minute, blood pressure 94/70, and respirations 19. General: He is intubated orotracheally. HEENT: Beside the twitches as described, unremarkable. I do not see neck veins being distended. Chest: Symmetrical. Diminished breath sound bilaterally. Cardiac: Heart sounds are regular and rhythmic. I do not hear any obvious gallop or murmur. Abdomen: The abdomen is flat. Bowel sounds are diminished. Extremities: The extremities show no edema. Pulses are diminished. Neurological: He seems to be having intermittent seizures. Unresponsive. LABORATORY DATA: Blood Work: Today his white cell count is 27,570, hemoglobin 13.1, and hematocrit 29.7. His sodium is 141, potassium 4.6, chloride 99, BUN 16, and creatinine 0.6. Troponin has been 0.017 the day of admission, 06/11/2019, yesterday it was 0.039, and then this morning 0.030. EKG shows sinus rhythm with a left bundle branch block type of pattern which is unchanged. A chest x-ray was done today and that shows possible worsening atelectasis or infiltrate in the left lower lobe. IMPRESSION: 1. Patient who has a history of coronary artery disease with previous myocardial infarction. 2. History of previous stroke. 3. Left ventricular systolic dysfunction, chronic with cardiomyopathy, probably ischemic. He does have extensive coronary atherosclerosis noted on CT scan of the chest. 4. History of alcohol abuse. 5. Status post cardiopulmonary arrest on 06/20/2019. Again the reason for the arrest is unclear. There is an echocardiogram that was done yesterday that is basically nondiagnostic. The heart could not be really seen on that study. 6. Suspected sepsis. RECOMMENDATIONS: At this time the patient's condition is critical. He is getting respiratory support and IV pressors as well as antibiotics and antiseizure drugs. We will follow his course. I cannot think of any specific intervention in addition to the current measures from a cardiology viewpoint. We will see how he evolves. cc: Abimael Oglesby MD
--- NOTE | 2019-06-21 15:42 | PROGRESS NOTE ---
DATE: 06/21/2019 SUBJECTIVE: The patient was noted to have seizure activity overnight and that continues even today. The patient is unresponsive on the vent. OBJECTIVE: Vital Signs: T-max 98.8 degrees, blood pressure 105/69, heart rate 94, respirations 20, O2 saturation 99% on the mechanical ventilator. Intake 2.8 L; output 1.6 L. General: This is a chronically ill-appearing elderly male lying in bed in no acute distress. Head: Normocephalic atraumatic. Heart: S1, S2 normal. Regular rate and rhythm. Lungs: Coarse breath sounds bilaterally. Abdomen: Positive bowel sounds. Soft, nontender, nondistended. Extremities: No edema, no cyanosis. Neurologic: The patient is unresponsive. LABS: White blood cell count 27, hemoglobin 13, hematocrit 39, platelets 254. Sodium 141, potassium 4.6, chloride 99, CO2 28. BUN 16, creatinine 0.6 glucose 117. ASSESSMENT AND PLAN: 1. Acute hypoxemic respiratory failure. Continue to treat the underlying pneumonia. Continue with ventilatory support as directed by the object oriented developer. 2. Status post cardiac arrest. Continue with supportive care. Cardiology is following. 3. Pneumonia. Continue with broad-spectrum antibiotic therapy as directed by Dr. Menard. 4. Septic shock. Continue with intravenous fluids. The patient is currently on Gucci-Synephrine. Continue with antibiotic therapy. 5. Alcohol dependence. Aware. 6. Cardiomyopathy. Aware. 7. Leukocytosis. Likely secondary to pneumonia. 8. Seizures. We will start the patient on Keppra and monitor his response. We will also consult with the neurologist on Sunday and plan to do an EEG on Sunday as well. 9. History of deep vein thrombosis. Continue on Lovenox. 10. Disposition: I updated the patient's ex- and daughter about the patient's medical condition. They preferred for the patient to remain a full code at this time until they can figure out what his wishes are in terms of documentation. The patient is critically ill with a high risk of mortality. cc: Rhina Garcia MD [facility]
--- NOTE | 2019-06-21 15:58 | Diag Imaging Result Doc PS360 ---
CHEST/ABD TUBE PLACEMENT - 06/21/2019 INDICATION: NGT placement COMPARISON: 5:18 AM FINDINGS: Detail is very poor. There is no visible nasogastric tube. IMPRESSION: No visible nasogastric tube. Electronically signed by Duran Parker 06/21/2019 3:56 PM
--- NOTE | 2019-06-21 17:51 | CONSULTATION ---
DATE OF CONSULTATION: 06/21/2019 REQUESTING PROVIDER: Dr. Rhina Garcia. REASON FOR CONSULTATION: Respiratory failure, ventilator management. HISTORY OF PRESENT ILLNESS: This is a 64-year-old male with a medical history of cerebral vascular accident, myocardial infarction, cardiomyopathy, chronic left bundle branch block, hypertension, peripheral vascular disease, seizure disorder, prostate cancer, essential tremors. He has chronic tobacco and alcohol abuse, too. He apparently was admitted through [place] [facility] with near syncope, possible urinary tract infection, possible alcohol intoxication with alcohol abuse and altered mental status with hypobilirubinemia name meal and transaminitis on 06/11/2019. He was placed in our facility on 06/13/2019 with sinus tachycardia with heart rate at 160s. At that time he also developed alcohol withdrawal syndrome with confusion, hallucinations, and agitation. He has been treated with IV lorazepam and the antibiotic levofloxacin for a possible UTI and possible left lower lobe pneumonia. Since then, he has been clinically improving, but unfortunately yesterday he developed a cardiac arrest and was subsequently intubated during the resuscitation event. He apparently was coded for about 20 minutes. Currently, he is still intubated. He is not on any sedation. He is not responsive to any verbal stimuli. He did withdraw his legs with some painful stimuli. He is on a Gucci-synephrine drip. Urine at the bedside drainage bag is clear and light earl. He has constant spontaneous facial twitching with eyes rolling back, which per the nurse report has been like that since the beginning of this shift, and the nurse is starting a Keppra drip. There is no family at bedside. All information is collected from the E-chart. PAST MEDICAL AND SURGICAL HISTORY: 1. Cerebrovascular accident, right occipital lobe. 2. Myocardial infarction. 3. Cardiomyopathy with left ventricular ejection fraction around 35%. 4. Chronic left bundle branch block. 5. Hypertension. 6. Peripheral vascular disease. 7. Seizure disorder., with the last one around 2 to 3 years ago. 8. History of prostate cancer status post prostatectomy. 9. Essential tremor. 10. Status post left inguinal hernia repair. 11. Status post right wrist elbow and shoulder surgical repair. 12. Chronic tobacco and alcohol abuse. SOCIAL HISTORY: Per H and P, patient has smoked 1 pack per day for over 25 years. He admits drinking a 6 pack per week. He denies any illicit drug use. FAMILY HISTORY: Positive for hypertension, myocardial infarction. ALLERGIES: Bupropion, cephalexin and albumin (human). REVIEW OF SYSTEMS: Unable to be obtained. PHYSICAL EXAMINATION: Vital Signs: Temperature 98.4, blood pressure 94/70, pulse 101, respiratory rate 18, oxygen saturation 99% on AC mechanical ventilator with spontaneous rate 18, FiO2 50%, tidal volume 500 and PEEP 5. General: Intubated, with frequent spontaneous facial twitching and eyes rolling back, unresponsive to any verbal stimuli, withdrawing with painful stimuli. HEENT: Trachea midline. ET tube in place. Mucosa pink and slightly dry. Respiratory: Mechanically ventilated. Symmetrical excursion. Clear to auscultation bilaterally. Cardiovascular: Regular rate and rhythm. Gastrointestinal: Flat, soft. Bowel sounds present in all 4 quadrants. Extremities: No pitting edema on bilateral lower extremities. Pitting edema 1+ on bilateral upper extremities. Some bruises noted on left toes with some wounds on the right toes. No cyanosis. No clubbing. Dorsalis pedis 1+ bilaterally. Neurologic: Nonresponsive to verbal stimuli with sedation. Has some Have son extremity withdrawing on painful stimuli. LAB DATA: White blood cell 27.57, hemoglobin 14.1, hematocrit 39.7, platelets 254. Sodium 141, potassium 4.6, chloride 99, carbon dioxide 28, BUN 16, creatinine 0.6, glucose 117. ABG: pH of 7.51, pCO2 of 40, PO2 of 90, HC03 of 31.3, base excess of 8.2, oxyhemoglobin of 95.8, and lactate of 3.50. IMAGING DATA: See chest x-ray this morning showed mild cardiomegaly, significant worsening infiltrate or atelectasis in the left lower lobe, stable dense infiltrate in the right upper lobe, stable patchy perihilar infiltrates and right basilar infiltrate with probably small pleural effusions. ASSESSMENT: This is a 64-year-old male with a medical history of cerebrovascular accident, myocardial infarction, cardiomyopathy, chronic left bundle branch block, hypertension, peripheral vascular disease, seizure disorder, prostate cancer, essential tremors and chronic tobacco and alcohol abuse. He has been admitted since 06/11/2019 with alcohol withdrawal syndrome with delirium tremens, possible urinary tract infection and pneumonia. Unfortunately, he developed a cardiac arrest yesterday afternoon and was subsequently intubated and transferred to ICU. 1. Acute hypoxic respiratory failure, status post cardiac arrest. 2. Status post cardiac arrest. 3. Pneumonia. 4. Septic shock. 5. Alcoholism. 6. Seizure-like activity with constant facial twitching and eyes rolling back. 7. Chronic tobacco abuse. PLAN: 1. Continue AC mechanical ventilator. 2. Neurology consult. 3. Continue broad-spectrum antibiotics and bronchodilators. 4. Continue pressors as needed. 5. Follow up with ABG, CBC, BMP and chest x-ray. 6. Continue GI and DVT prophylaxis. 7. Further recommendations pending hospital course. Thank you for the courtesy of this consult. Dictated by HAILEY Zamorano for Ignacio Diaz MD cc: HAILEY Zamorano MD [facility]
--- NOTE | 2019-06-21 17:58 | Diag Imaging Result Doc PS360 ---
CHEST/ABD TUBE PLACEMENT - 06/21/2019 INDICATION: NGT placement verification COMPARISON: 2:14 PM FINDINGS: There is an endotracheal tube in good position at T3. There is a nasogastric tube in the upper thoracic esophagus at about T6. IMPRESSION: Nasogastric tube is in the upper thoracic esophagus. Electronically signed by Duran Parker 06/21/2019 5:55 PM
--- NOTE | 2019-06-21 19:26 | Diag Imaging Result Doc PS360 ---
CHEST/ABD TUBE PLACEMENT - 06/21/2019 6:55 PM INDICATION: NGT placement COMPARISON: 5:22 PM FINDINGS: The nasogastric tube has been advanced and is now fully in the stomach in the left upper quadrant. IMPRESSION: Nasogastric tube in good position. Electronically signed by Duran Parker 06/21/2019 7:24 PM
[2019-06-21] MEDS: NEO-SYNEPHRINE 50 MG in NS 250 ML IV SCH (20:48)
[2019-06-22] MEDS: ATIVAN IV PRN (02:14)
[2019-06-22] MEDS: XOPENEX NEB INH SCH ×4 (03:50→21:23)
[2019-06-22] MEDS: LOVENOX SUBQ SCH ×2 (04:11→16:42)
[2019-06-22] MEDS: AZACTAM 2 GM in NS 100 ML IV SCH ×3 (04:12→19:29)
[2019-06-22 04:29] LABS: ALLEN TEST YES; BE 7.9 mmoll (-3.0-3.0); BLOOD TYPE ARTERIAL; HCO3-(ACT) 31.1 mmoll (20.0-26.0); METHB 1.4 % (0.0-1.5); O2(CT) 16.3 mL/dL (15.0-23.0); O2HB 96.9 % (95.0-99.0); PCO2(98.6) 42 mmHg (35-45); PO2(98.6) 144 mmHg (60-100); SAMPLE BLOOD; SAO2 100.2 % (95.0-100.0); SRATE 12 BPM; THB 11.8 g/dL (11.5-17.4); TVOL 500 mL; pH(98.6) 7.49 (7.35-7.45)
[2019-06-22 04:30] LABS: MODALITY VENTILATOR
[2019-06-22 05:10] LABS: BASO# 0.03 X1000 (0.0-0.2); BASO% 0.1 % (0.0-0.8); EOS# 0.01 X1000 (0.0-0.7); HEMATOCRIT 35.9 % (42.0-52.0); HEMOGLOBIN 11.3 g/dL (14.0-18.0); IMM GRAN# 0.72 X1000 (0.0-0.04); IMM GRAN% 2.5 % (0.0-0.5); LYMPH% 11.3 % (20.5-51.1); MCH 34.1 PG (27-31); MCHC 31.5 g/dL (33-37); MCV 108.5 FL (81-99); MONO% 19.3 % (1.7-9.3); MPV 11.1 FL (7.4-10.4); NEUT# 18.97 X1000 (1.4-6.5); NEUT% 66.8 % (42.2-75.2); PLT 283 X1000 (130-400); RBC 3.31 XMIL (4.7-6.1); RDW 14.5 % (11.5-14.5); WBC 28.43 X1000 (4.8-10.8)
[2019-06-22 05:30] LABS: LYMPHS 13 % (21-51); MONO 16 % (1-9); SEGS 71 % (42-75)
[2019-06-22 05:33] LABS: AGAP 9; BUN 30 mg/dL (8-22); CALCIUM 7.5 mg/dL (8.8-10.2); CHLORIDE 104 mmol/L (98-107); COSMO 293; CREATININE 0.6 mg/dL (0.7-1.2); ESTIMATED GFR > 60; GLUCOSE 157 mg/dL (70-104); POTASSIUM 4.1 mmol/L (3.5-5.1); SODIUM 142 mmol/L (136-145); TCO2 29 mmol/L (25-35)
[2019-06-22] MEDS: PROTONIX IV SCH (06:23)
[2019-06-22] MEDS: NS 1,000 ML IV SCH ×2 (06:31→20:33)
--- NOTE | 2019-06-22 07:40 | Diag Imaging Result Doc PS360 ---
CHEST-PORTABLE - 06/22/2019 INDICATION: dyspnea COMPARISON: 06/21/2019 FINDINGS: Stable endotracheal tube and nasogastric tube in good position. Stable ill-defined consolidation of both lower lobes. Stable significant infiltrate in the right upper lobe as well. Heart size remains normal. IMPRESSION: No complication or change from prior. Electronically signed by Duran Parker 06/22/2019 7:38 AM
[2019-06-22] MEDS: NS NEB INH SCH ×2 (09:28→15:28)
[2019-06-22] MEDS: ZYVOX 600 MG/D5W 600 MG/300 ML IVPB IV SCH ×2 (10:15→20:24)
[2019-06-22] MEDS: KEPPRA 500 MG in NS 100 ML IV SCH ×2 (10:15→20:24)
--- NOTE | 2019-06-22 11:44 | CARDIOLOGY PROGRESS NOTE ---
DATE: 06/22/2019 CHIEF COMPLAINT: Unresponsiveness, low blood pressure. SUBJECTIVE: Mr. Velasco remains intubated and unresponsive. He is having some myoclonic type of twitches involving the eyes and the face and lips. Question of status epilepticus. The patient is currently on antiseizure medication. His Gucci-Synephrine has been put on hold since his blood pressure is somewhat better. OBJECTIVE: Blood pressure right now is 92/65, pulse 114, respirations 13, temperature 98.8. The patient is not awake, he is not responsive. His eyes are open; however, he is having myoclonic twitches. He is intubated. He has an NG tube. Chest: Symmetrical, breath sounds diminished. Heart sounds are tachycardic, regular. I do not hear gallop or murmur. Abdomen is flat, nondistended. Bowel sounds diminished. Extremities showed decreased pulses. No obvious edema. Neurologic: As I said, he seems to be having seizures. DIAGNOSTIC DATA: White cell count is 28,430, hemoglobin 11.3 g%, hematocrit 35.9%, bands were 5% before 2 days ago. His sodium is 142, potassium 4.1, BUN is 30, creatinine 0.6. Chest x-ray done today shows stable endotracheal tube, stable ill-defined consolidation of both lower lobes. IMPRESSION: 1. The patient has seemingly a comatose state with persistent involuntary movements, possible status epilepticus. Anoxic encephalopathy? 2. Status post cardiopulmonary arrest. Currently on mechanical ventilation. 3. History of chronic left ventricular systolic dysfunction, ischemic cardiomyopathy, previous myocardial infarction. 4. History of alcohol abuse. 5. Question of pneumonia and sepsis. RECOMMENDATIONS: At this time, I would continue current supportive measures. The prognosis of this patient appears to be very guarded. We will follow. cc: Abimael Oglesby MD [facility]
[2019-06-22] MEDS: THIAMINE 100 MG in NS 50 ML IV SCH (13:14)
--- NOTE | 2019-06-22 18:33 | PROGRESS NOTE ---
DATE: 06/22/2019 SUBJECTIVE: The patient remains on the ventilator. He is having involuntary muscle movements involving his face. OBJECTIVE: Vital Signs: T-max 100.6 degrees, blood pressure 104/69, heart rate 116, respirations 12, O2 saturations 100% on the mechanical ventilator. Intake 3.2 L, output 525. General: This is an elderly male currently on the ventilator. Head: Normocephalic, atraumatic. Heart: S1, S2 normal. Tachycardic. Lungs: Coarse breath sounds bilaterally. Abdomen: Positive bowel sounds. Soft, nontender, nondistended. Extremities: No edema, no cyanosis. Neurologic: The patient is unresponsive. He is having involuntary muscle movement involving his face. LABORATORY DATA: White blood cell count 28, hemoglobin 11, hematocrit 35, platelets 283,000. Sodium 142, potassium 4.1, chloride 104, CO2 of 29, BUN 30, creatinine 0.6, glucose 157, magnesium 2.1. ASSESSMENT AND PLAN: 1. Acute hypoxemic respiratory failure. Continue with ventilatory support as directed by the power press tender. 2. Status post cardiac arrest. Continue with supportive care. 3. Pneumonia. Continue with broad-spectrum antibiotics and bronchodilator therapy. 4. Septic shock. Continue to treat the underlying infection. 5. Possible seizure disorder. The patient is on Keppra. An EEG and a neurology consultation have been ordered for Sunday. 6. Possible anoxic encephalopathy. Will await the evaluation from the neurologist and the EEG. 7. Alcohol dependence. Aware. 8. Cardiomyopathy. Aware. 9. History of deep venous thrombosis. Continue on full-dose Lovenox. 10. Disposition. The patient is currently a full code. The patient is critically ill with a high risk of mortality. cc: Rhina Garcia MD [facility]
[2019-06-23] MEDS: XOPENEX NEB INH SCH ×4 (03:23→21:54)
[2019-06-23] MEDS: LOVENOX SUBQ SCH ×2 (04:14→16:38)
[2019-06-23] MEDS: AZACTAM 2 GM in NS 100 ML IV SCH ×3 (04:15→20:20)
[2019-06-23 04:24] LABS: ALLEN TEST YES; BE 7.9 mmoll (-3.0-3.0); BLOOD TYPE ARTERIAL; HCO3-(ACT) 31.1 mmoll (20.0-26.0); METHB 1.2 % (0.0-1.5); O2(CT) 16.5 mL/dL (15.0-23.0); O2HB 97.1 % (95.0-99.0); PCO2(98.6) 49 mmHg (35-45); PO2(98.6) 168 mmHg (60-100); SAMPLE BLOOD; SAO2 99.7 % (95.0-100.0); SRATE 12 BPM; THB 11.8 g/dL (11.5-17.4); TVOL 500 mL; pH(98.6) 7.44 (7.35-7.45)
[2019-06-23 04:26] LABS: MODALITY VENTILATOR
[2019-06-23] MEDS: NS 1,000 ML IV SCH (06:14)
[2019-06-23] MEDS: PROTONIX IV SCH (06:15)
[2019-06-23 06:25] LABS: BASO# 0.02 X1000 (0.0-0.2); BASO% 0.1 % (0.0-0.8); EOS# 0.05 X1000 (0.0-0.7); EOS% 0.3 % (0.0-10.0); HEMATOCRIT 33.8 % (42.0-52.0); HEMOGLOBIN 10.5 g/dL (14.0-18.0); IMM GRAN# 0.37 X1000 (0.0-0.04); IMM GRAN% 1.9 % (0.0-0.5); LYMPH# 2.87 X1000 (1.2-3.4); LYMPH% 14.9 % (20.5-51.1); MCH 34.9 PG (27-31); MCHC 31.1 g/dL (33-37); MCV 112.3 FL (81-99); MONO# 3.56 X1000 (0.11-0.59); MONO% 18.5 % (1.7-9.3); MPV 10.8 FL (7.4-10.4); NEUT# 12.38 X1000 (1.4-6.5); NEUT% 64.3 % (42.2-75.2); PLT 233 X1000 (130-400); RBC 3.01 XMIL (4.7-6.1); RDW 14.5 % (11.5-14.5); WBC 19.25 X1000 (4.8-10.8)
--- NOTE | 2019-06-23 06:36 | Diag Imaging Result Doc PS360 ---
CHEST-PORTABLE - 06/23/2019 INDICATION: dyspnea COMPARISON: 06/22/2019 FINDINGS: Support tubes are stable and in good position. There is no significant change in the dense bibasilar consolidation. Stable infiltrate in the right upper lobe. Heart size remains top normal. IMPRESSION: No change from prior. Electronically signed by Duran Parker 06/23/2019 6:33 AM
[2019-06-23 07:00] LABS: ALB/GLOB RATIO 0.7; ALBUMIN 2.1 g/dL (3.5-5.0); DIRECT BILIRUBIN 0.2 mg/dL (0.00-0.20); PHOSPHORUS 2.7 mg/dL (2.7-4.5); TOTAL BILIRUBIN 0.51 mg/dL (0.20-1.00)
[2019-06-23 07:07] LABS: AGAP 8; BUN 25 mg/dL (8-22); CALCIUM 7.7 mg/dL (8.8-10.2); CHLORIDE 106 mmol/L (98-107); COSMO 291; CREATININE 0.4 mg/dL (0.7-1.2); ESTIMATED GFR > 60; GLUCOSE 127 mg/dL (70-104); POTASSIUM 4.1 mmol/L (3.5-5.1); SODIUM 143 mmol/L (136-145); TCO2 29 mmol/L (25-35)
--- NOTE | 2019-06-23 08:15 | INFECTIOUS DISEASE PROGRESS NO ---
DATE: 06/23/2019 PRESENT ILLNESS: The patient has a bilateral pneumonia. MEDICATIONS: This is day 6 of treatment with aztreonam and Zyvox. PHYSICAL EXAMINATION: Vital Signs: Temperature was 101 degrees and now it is down to 100, pulse 108, respirations 23, blood pressure 108/66. General: This is an ill-appearing, elderly male. The patient is intubated. He is obtunded. Head, Eyes, Ears, Nose, and Throat: No drainage noted from the nose or ears. Orotracheal tube is in place. Neck: No stiffness. Lungs: Clear to auscultation. Cardiovascular: Heart rate is regular. Abdomen: Soft and did not appear to be tender. Neurologic: The patient is obtunded. He did respond to verbal stimuli. He does not have a tremor. Integument: No rash noted. LAB AND X-RAY: Chest x-ray shows a right upper lobe infiltrate and bibasilar consolidation. The patient's sputum grew yeast. Blood cultures are negative. The patient's CBC shows a white count of 19,250, hemoglobin 10.5, and platelet count 233,000. Blood gases show a pH of 7.44, a PO2 of 168, and a pCO2 of 49. Creatinine is 0.4. GFR is greater than 60. Liver function studies are normal except for an AST of 45. Procalcitonin is 0.22 which indicates that it is unlikely that the patient has a pneumonia. ASSESSMENT AND PLAN: The patient has pulmonary infiltrates. I think even though the procalcitonin is low that the patient does have pneumonia, possibly due to aspiration. My plan is to continue with the current antibiotics, namely Zyvox and aztreonam. COMORBIDITIES: The patient is elderly. He has a seizure disorder. He has prostate cancer. He has had a stroke. The patient also is a cigarette smoker and he drinks alcoholic beverages. cc: Candido Menard MD
[2019-06-23] MEDS: KEPPRA 500 MG in NS 100 ML IV SCH (09:02)
[2019-06-23] MEDS: ZYVOX 600 MG/D5W 600 MG/300 ML IVPB IV SCH ×2 (09:02→20:21)
[2019-06-23 10:54] LABS: INR 1.23; PROTIME 15.7 Seconds (11.0-16.0)
[2019-06-23] MEDS: THIAMINE 100 MG in NS 50 ML IV SCH (12:26)
--- NOTE | 2019-06-23 14:25 | PROGRESS NOTE ---
DATE: 06/23/2019 SUBJECTIVE: The patient is resting comfortably in bed. He is currently on the ventilator. OBJECTIVE: Vital Signs: Temperature 100.9 degrees, blood pressure 101/65, heart rate 100, respirations 14, O2 saturations 100% on mechanical ventilator. Intake: 3.9 L. Output: 950. General: This is a chronically ill-appearing elderly male, lying in bed in no acute distress. Heart: S1, S2 normal, tachycardic. Lungs: Coarse breath sounds bilaterally. Abdomen: Positive bowel sounds. Soft, nontender, nondistended. Extremities: Trace edema in the lower extremities, 1+ edema in the upper extremities. Neurologic: The patient does not follow commands. DIAGNOSTIC STUDIES: White blood cell count 19, hemoglobin 10, hematocrit 33, platelets 233,000. Sodium 143, potassium 4.1, chloride 106, CO2 of 29, BUN 25, creatinine 0.4, glucose 127, calcium 7.7. Magnesium 2.1. Phosphorus 2.7. Albumin 2.1. Chest x-ray shows bilateral consolidation. ASSESSMENT AND PLAN: 1. Acute hypoxemic respiratory failure. Continue with ventilatory support as directed by the aviation survival technician. 2. Status post cardiac arrest. Continue with supportive care. 3. Septic shock. The patient is off of the Gucci-Synephrine. Continue to treat the underlying infection. 4. Pneumonia. Continue with broad-spectrum antibiotics and bronchodilator therapy. 5. Possible anoxic encephalopathy. An EEG is currently pending. We will also await further recommendations from the neurologist. 6. Possible seizure disorder. The patient is currently on Keppra. 7. Cardiomyopathy. Aware. 8. Alcohol dependence. Aware. 9. Constipation. We will start the patient on laxative therapy via the NG tube. 10. History of deep vein thrombosis. Continue on full-dose Lovenox. DISPOSITION: The patient is critically ill with a high risk of mortality. At this time, the patient is a full code. Palliative Care has been consulted to assist with goals of care with the family. cc: Rhina Garcia MD [facility]
--- NOTE | 2019-06-23 14:33 | PROGRESS NOTE ---
DATE: 06/23/2019 SUBJECTIVE: Patient continues unresponsive on the ventilator. OBJECTIVE: Blood pressure 101/65, heart rate 100 with ECG monitor showing sinus tachycardia. There is no appreciable jugular distention. On auscultation, the chest reveals a few expiratory rhonchi. Cardiac Examination: Reveals a regular rate and rhythm without appreciable murmur or gallop. There is no evidence of peripheral edema. Laboratory Data: Includes white blood cell count of 19.25, hematocrit 32.8, hemoglobin 10.5, platelet count 233,000. Sodium 143, potassium 4.1, chloride 106, carbon dioxide 29, BUN 25, creatinine 0.4. IMPRESSION: 1. Status post cardiopulmonary arrest with initial rhythm of pulseless electrical activity. 2. Suspect significant anoxic encephalopathy. 3. Respiratory failure post cardiopulmonary arrest. 4. Cardiomyopathy, probably ischemic in origin based on previous noninvasive evaluation and CT scan demonstrating significant coronary calcifications. 5. Chronic alcohol abuse. 6. Recent pneumonia and probable sepsis. RECOMMENDATIONS: 1. Continue supportive care. 2. Continue Lovenox, given history of deep vein thrombosis. 3. Prognosis poor. cc: Wei Mendoza MD
--- NOTE | 2019-06-23 17:30 | Diag Imaging Result Doc PS360 ---
EXAM: CT HEAD W/O CONTRAST HISTORY: unresponsive s/p cardiac arrest TECHNIQUE: CT head without contrast COMPARISON: 06/21/2019 FINDINGS: No parenchymal hemorrhage. No epidural or subdural hematoma. No subarachnoid hemorrhage. Old right occipital infarct. There is atrophy of chronic ischemic changes. No mass identified on this noncontrasted exam. No hydrocephalus. No sinus opacification. IMPRESSION: 1.No hemorrhage 2.Old right infarct 3.Atrophy with chronic ischemic changes This exam was performed using automated exposure control, adjustment of mA or kV according to patient size, and/or use of iterative reconstruction technique. Electronically signed by Ronal Flowers 06/23/2019 5:28 PM
[2019-06-23] MEDS: DULCOLAX PR SCH (20:20)
[2019-06-23] MEDS: COLACE LIQUID PO SCH (20:20)
[2019-06-23] MEDS: KEPPRA 750 MG in NS 100 ML IV SCH (20:24)
--- NOTE | 2019-06-23 20:53 | EEG REPORT ---
DATE: 06/23/2019 REFERRING: Jose. REDYE HAND: Collette Hare. BACKGROUND INFORMATION AND TECHNIQUE: This is a digitally recorded portable routine EEG with video. HISTORY: 64-year-old male status post cardiac arrest. EEG is ordered to detect evidence of seizures. EEG FINDINGS: A posterior dominant alpha rhythm is not seen. The background consists of theta delta slowing with some intermixed faster frequencies, at times semirhythmic to rhythmic. No definite persistent focal slowing. Occasional to frequent generalized discharges are seen throughout the study. Cannot rule out seizure. Clinically, the patient is seen to have twitching movements of the eye(s) on video. Hyperventilation is not performed. Photic stimulation does not alter the record. No definite drowsiness patterns. Stage II sleep is not seen. EKG demonstrates regular intervals. IMPRESSION AND CLINICAL CORRELATION: Abnormal routine EEG due to: 1. Generalized discharges as detailed above which may be indicative of cortical irritability. Cannot definitely rule out seizure 2. Moderate to severe generalized slowing, indicative of a moderate to severe nonspecific encephalopathy. Clinical correlation is recommended. cc: MD Rhina Rolle MD [facility]
[2019-06-23] MEDS: ATIVAN IV PRN (23:05)
--- NOTE | 2019-06-24 00:15 | CONSULTATION ---
DATE OF CONSULTATION: 06/23/2019 REASON FOR CONSULTATION: Seizure-like symptoms and encephalopathy. HISTORY OF PRESENT ILLNESS: This is a 64-year-old male with history of chronic alcoholism, cardiomyopathy, remote right occipital lobe infarct, possible seizures, and coronary disease. He was admitted on 06/11/2019 with complaints of shortness of breath and dizziness episode as well as diarrhea. He was being treated for alcohol withdrawal with chlordiazepoxide and lorazepam, a urinary tract infection and pneumonia. He had an episode of sinus tachycardia at [facility] and was transferred to [facility] for further care. The patient suffered a cardiopulmonary arrest on 06/20/2019, with initial rhythm reportedly PEA. By report the patient was coded for 20 minutes with return of spontaneous circulation then. He has been on blood pressure support. He has not been on sedation, but has received 1mg p.r.n. lorazepam 6 doses throughout 06/21/2019, and 1 dose documented yesterday. He has also gotten I believe a total of 8 mg of morphine, last dose on 06/21/2019. The patient was started on levetiracetam 500 mg b.i.d. over the weekend due to twitching movements of the eyes, jaw and chest area. Head CT on 06/21/2019 showed no acute findings. PAST MEDICAL/SURGICAL HISTORY: 1. Remote right occipital lobe infarct. 2. Coronary disease. 3. Hypertension. 4. Cardiomyopathy. 5. Peripheral vascular disease. 6. Possible seizures of uncertain etiology, apparently not on home antiepileptic medications. 7. History of prostate cancer. 8. Reported essential tremor. 9. Prostatectomy. 10. Inguinal hernia repair. 11. Right wrist elbow and shoulder surgery. FAMILY HISTORY: Positive for KS and hypertension. SOCIAL HISTORY: He is a current smoker. He also drinks alcohol, and the amount is uncertain. No illicit drugs. He uses a cane for ambulation. He lives alone. He does have family who have been in and out visiting. ALLERGIES: Listed and reviewed in the chart, include bupropion and cephalexin. PAST MEDICAL HISTORY: Possible DVT remote. HOME MEDICATIONS: Include Xarelto 1 mg p.o. daily, and thiamine. CURRENT MEDICATIONS: Reviewed in the chart. Of note, levetiracetam 500 mg IV q.12 hours, Lorazepam 1 mg q.2 hours p.r.n. alcohol withdrawal. As detailed above morphine 4 mg IV q.4h p.r.n. pain. As detailed above thiamin. REVIEW OF SYSTEMS: Unobtainable due to patient factors.. PHYSICAL EXAMINATION: Vital Signs: Temperature 100.9 degrees, blood pressure 101/65 current, he had periods of hypotension as low as 60/45, pulse 100. He is on mechanical ventilation. General: Mr. Velasco is supine in bed on mechanical ventilation, his eyes are closed. He does not respond to voice or light touch. With sternal rub he begins to cough. No other response. No commands. Pupils are equal 3 mm and reactive bilaterally to bright light. Gaze is conjugate and forward. I did not see definite horizontal eye movement with passive head turning. There is some irregular twitching of the eyes which limits ability to assess corneal reflexes and blink to threat. Face appears to be symmetric. There is an intact weak gag. He coughs. There is no response to noxious stimuli applied either proximally or distally to the limbs. He has irregular twitching of the eyes bilaterally, this also involves the jaw. Additionally these movements involving the limbs. Reflexes are absent at the ankles and patellas bilaterally, 1 to 2+ at the wrists and biceps bilaterally. DIAGNOSTICS: Head CT on 06/21/2019 did not show acute findings. There is old right occipital lobe encephalomalacia. LABORATORY DATA: Reviewed in the chart. White count down trending 19 today. On 06/20/2019 pH was 7.34, pCO2 of 56, PO2 of 203 on the ventilator with an FiO2 of 80%. Sodium normal, BUN 25, creatinine 0.4, blood sugars low to mid 100, calcium 7.7, AST 45, ALT. ASSESSMENT AND PLAN: Global encephalopathy with diffuse myoclonus status post cardiopulmonary arrest on 06/20/2019. 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 I did not see definite seizure activity during my time at the bedside today, though I understand there has been some concern of that, and his history of cardiac arrest and now myoclonic activity certainly raises the risk. I agree with Aman though I will increase the dose to 750 b.i.d. and see how he does. May need to increase further. I will order a repeat head CT as well. Continue supportive measures per primary team. Continue monitoring clinically with neurologic checks. Thank you for the consultation. cc: Lissa Tsang MD [facility]
[2019-06-24] MEDS: ATIVAN IV PRN (01:46)
[2019-06-24] MEDS: LOVENOX SUBQ SCH ×2 (02:49→16:05)
[2019-06-24] MEDS: XOPENEX NEB INH SCH ×4 (03:53→23:05)
[2019-06-24 04:38] LABS: ALLEN TEST YES; BE 8.4 mmoll (-3.0-3.0); BLOOD TYPE ARTERIAL; HCO3-(ACT) 31.5 mmoll (20.0-26.0); O2(CT) 13.1 mL/dL (15.0-23.0); O2HB 96.9 % (95.0-99.0); PO2(98.6) 110 mmHg (60-100); SAMPLE BLOOD; SAO2 99.9 % (95.0-100.0); SRATE 12 BPM; THB 9.5 g/dL (11.5-17.4); TVOL 500 mL; pH(98.6) 7.43 (7.35-7.45)
[2019-06-24 04:40] LABS: MODALITY VENTILATOR
[2019-06-24 04:41] LABS: PCO2(98.6) 51 mmHg (35-45)
[2019-06-24] MEDS: AZACTAM 2 GM in NS 100 ML IV SCH ×3 (05:17→19:59)
[2019-06-24 05:47] LABS: BASO# 0.02 X1000 (0.0-0.2); BASO% 0.2 % (0.0-0.8); EOS# 0.21 X1000 (0.0-0.7); EOS% 1.6 % (0.0-10.0); HEMATOCRIT 30.2 % (42.0-52.0); HEMOGLOBIN 9.3 g/dL (14.0-18.0); IMM GRAN# 0.17 X1000 (0.0-0.04); IMM GRAN% 1.3 % (0.0-0.5); LYMPH# 2.83 X1000 (1.2-3.4); LYMPH% 21.4 % (20.5-51.1); MCH 34.2 PG (27-31); MCHC 30.8 g/dL (33-37); MONO# 2.16 X1000 (0.11-0.59); MONO% 16.4 % (1.7-9.3); MPV 10.7 FL (7.4-10.4); NEUT# 7.81 X1000 (1.4-6.5); NEUT% 59.1 % (42.2-75.2); PLT 218 X1000 (130-400); RBC 2.72 XMIL (4.7-6.1); RDW 13.8 % (11.5-14.5)
[2019-06-24 06:12] LABS: AGAP 8; ALB/GLOB RATIO 0.7; ALBUMIN 1.9 g/dL (3.5-5.0); ALKALINE PHOSPHATASE 73 U/L (32-122); BUN 18 mg/dL (8-22); CALCIUM 7.6 mg/dL (8.8-10.2); CHLORIDE 108 mmol/L (98-107); COSMO 293; CREATININE 0.3 mg/dL (0.7-1.2); ESTIMATED GFR > 60; GLUCOSE 102 mg/dL (70-104); GOT 43 U/L (10-34); GPT 28 U/L (10-44); POTASSIUM 3.9 mmol/L (3.5-5.1); SODIUM 146 mmol/L (136-145); TCO2 30 mmol/L (25-35); TOTAL BILIRUBIN 0.66 mg/dL (0.20-1.00); TOTAL PROTEIN 4.6 g/dL (6.3-8.3)
--- NOTE | 2019-06-24 06:53 | Diag Imaging Result Doc PS360 ---
CHEST-PORTABLE - 06/24/2019 INDICATION: dyspnea COMPARISON: 06/23/2019 FINDINGS: Stable endotracheal tube and nasogastric tube in good position. Stable airspace opacifications in the lung bases. Stable pulmonary vascular congestion. Stable right upper lobe infiltrate. IMPRESSION: No change from prior. Electronically signed by Duran Parker 06/24/2019 6:51 AM
[2019-06-24 07:09] LABS: EOS 1 % (1-10); LYMPHS 22 % (21-51); MONO 15 % (1-9); SEGS 62 % (42-75)
[2019-06-24] MEDS: PROTONIX IV SCH (07:12)
[2019-06-24] MEDS: SODIUM CHLORIDE 0.9% INJ SCH (07:13)
[2019-06-24] MEDS ORDERED: DIPRIVAN 1% IV PRN (08:12)
[2019-06-24] MEDS: COLACE LIQUID PO SCH ×2 (09:13→20:06)
[2019-06-24] MEDS: KEPPRA 750 MG in NS 100 ML IV SCH (09:13)
[2019-06-24] MEDS: ZYVOX 600 MG/D5W 600 MG/300 ML IVPB IV SCH ×2 (09:13→19:59)
[2019-06-24] MEDS: TRANSDERM-SCOP TD SCH (10:37)
[2019-06-24 11:35] LABS: INR 1.23; PROTIME 15.7 Seconds (11.0-16.0)
[2019-06-24] MEDS: THIAMINE 100 MG in NS 50 ML IV SCH (12:39)
[2019-06-24] MEDS: MYCOSTATIN SUSP PO SCH ×3 (12:40→23:49)
--- NOTE | 2019-06-24 13:05 | INFECTIOUS DISEASE PROGRESS NO ---
DATE: 06/24/2019 PRESENT ILLNESS: The patient has a bilateral pneumonia. MEDICATIONS: The patient is on day 7 of treatment with the combination of aztreonam and Zyvox. PHYSICAL EXAMINATION: Vital Signs: Temperature is 98.1 degrees, pulse 87, respirations 24, blood pressure 124/71. General: This is an ill-appearing elderly male. He is intubated and sedated. He does not seem to be in any acute distress. Head, eyes, ears, nose and throat: No drainage noted from the nose or ears. The patient has an orotracheal tube intact. Neck: No stiffness when I passively moved his head. Lungs: Bilateral rhonchi. Cardiovascular: Heart rate is regular. Abdomen: Soft and it did not appear to be tender. Neurologic: The patient is obtunded. He did not respond to verbal stimuli. He does not have a tremor. Integument: No rash. LAB AND X-RAY: 1. Chest x-ray shows bilateral pulmonary vascular congestion and right upper lobe infiltrate. 2. CT scan of the head shows atrophy, ischemia, and an old infarct. 3. The patient's CBC shows a white count of 13,200, hemoglobin 9.3 and platelet count 218,000. The patient's arterial blood gases show a pH of 7.43, a PO2 of 110, and a pCO2 of 51. Creatinine is 0.3. GFR is greater than 60. ASSESSMENT AND PLAN: I think the patient has a right upper lobe pneumonia. He also appears to have pulmonary venous congestion. My plan is to continue Zyvox and aztreonam. COMORBIDITIES: The patient is elderly. He has had a seizure disorder and prostate cancer and a stroke in the past. He also is a cigarette smoker, and he drinks alcoholic beverages. cc: Candido Menard MD
[2019-06-24] MEDS ORDERED: NS 250 ML ONE (13:43)
--- NOTE | 2019-06-24 15:51 | PROGRESS NOTE ---
DATE: 06/24/2019 SUBJECTIVE: No major overnight events. Nurse today says she has not seen any twitching movements. OBJECTIVE: Vital Signs: Afebrile. Blood pressure 111/67, pulse 90. General: Mr. Velasco is supine in bed on mechanical ventilation. No response to loud voice or light touch. With sternal rub, there seemed to be slight movement of the left lower extremity. No commands. No spontaneous movement of the limbs. Pupils equal, 3 mm, reactive OU. Gaze conjugate and forward. There is subtle horizontal eye movement with passive head turning. Today I do not see any twitching involving the limbs or torso. There is more subtle twitching involving the eyes and jaw line. The eye twitching is synchronous but irregular. Corneal reflexes were weak. I did not see blink to threat. Face appears symmetric. Weak gag. Positive cough. I did not see response to noxious stimuli of the upper extremities. There does appear to be some movement, possibly slight withdrawal in response to stroking the plantar aspects of his feet bilaterally. Plantar response is extensor bilaterally. DIAGNOSTICS: A routine EEG was reviewed personally. It showed generalized discharges and moderate to severe generalized slowing. Due to the relatively low amplitude, fast frequency nature of the clinical movements, it was difficult to time lock with the electrographic features and seizure could not be definitely ruled out. Labs reviewed in the chart. BUN 18, creatinine 0.3. Head CT from yesterday did not show acute findings. There is the old right occipital infarct. ASSESSMENT AND PLAN: Global encephalopathy with myoclonus, actually with diffuse myoclonus. Status post cardiopulmonary arrest 06/20/2019. Concern remains for global hypoxic injury but it is early and we will have to see how he does. The myoclonus is definitely improved today, and I saw only minimal during my time at the bedside. I am going to increase his Keppra to 1 g b.i.d. and see how he does. Renal function is good. Continue supportive measures and monitoring clinically with neurologic checks. cc: Lissa Tsang MD
--- NOTE | 2019-06-24 17:00 | PROGRESS NOTE ---
DATE: 06/24/2019 INTERVAL HISTORY: The patient remains intubated. Remains off sedation. Remains encephalopathic. Appears to have copious clear secretions. No other acute events. REVIEW OF SYSTEMS: Unable to obtain secondary to patient mental status. LABS: WBC 13.2, hemoglobin 9.3, hematocrit 30.2, platelets 218,000. ABG with pH 7.43, pCO2 of 51, PO2 110 on ventilator. Sodium 146, BUN 18, creatinine 0.3, glucose 102. IMAGING: Chest x-ray with no change from prior. VITALS: T-max 99.1 degrees, pulse 84, respirations 14, blood pressure 111/67, O2 saturation 100% on ventilator. PHYSICAL EXAMINATION: General: Intubated and sedated. No acute distress. Vitals: As above. HEENT: Normocephalic, atraumatic. Moist mucous membranes. Copious secretions dripping out the side of his mouth. Secretions are clear and colorless. Cardiovascular: Regular rate and rhythm. Pulmonary: Coarse and diffuse rhonchi bilaterally, but no wheezing. Reasonable air entry. Abdomen: Soft, nontender, nondistended. Bowel sounds positive. Extremities: Peripheral pulses intact. No clubbing, cyanosis. Neurologic: Somewhat limited by intubation. Patient with occasional nonpurposeful movement of head and limbs. Pupils equal, round, reactive to light. Intermittent somewhat rhythmic movement of tongue and face, but does not last more than a few seconds and patient appears to move spontaneously in between, not entirely consistent with seizure activity. Psychiatric: Patient intubated, encephalopathic and follows no commands. Nonverbal. ASSESSMENT AND PLAN: 1. Pneumonia patient remains intubated. Appears to have room to wean oxygen on the ventilator but failed spontaneous breathing trial earlier today. Had respiratory rate that got up into the 60s. Still with copious secretions, so we will place a scopolamine patch to see if that helps with that some. Pulmonology following. Will continue daily weaning trials. 2. Likely septic shock, likely secondary to aspiration pneumonia as above. Off pressors for several days now. Continue antibiotics with aztreonam and Zyvox. 3. Encephalopathy. Some concern for anoxic injury. Patient clearly not brain but has not woken up significantly despite holding sedation for several days. We will give him time and see what happens. Minimize sedating medications as much as we can. 4. Possible seizure disorder. The patient on Keppra. EEG without clear evidence of seizure, but based on results, neurology is going ahead and increasing his Keppra to 1 g b.i.d. Continue to monitor. 5. Alcohol abuse. Patient with previous history of alcohol abuse. Well past the time for alcohol withdrawal at this point. 6. Hyponatremia, pretty mild right now. Will monitor but may have to give some half-normal saline if it worsens.
[2019-06-24] MEDS: DULCOLAX PR SCH ×2 (19:51→23:47)
[2019-06-24] MEDS: KEPPRA 1,000 MG in NS 100 ML IV SCH (19:59)
[2019-06-24] MEDS: MORPHINE IV PRN (20:06)
[2019-06-25] MEDS: LOVENOX SUBQ SCH (03:21)
[2019-06-25] MEDS: AZACTAM 2 GM in NS 100 ML IV SCH ×2 (03:27→12:46)
[2019-06-25] MEDS: XOPENEX NEB INH SCH ×2 (03:57→09:24)
[2019-06-25 04:38] LABS: ALLEN TEST YES; BLOOD TYPE ARTERIAL; HCO3-(ACT) 30.4 mmoll (20.0-26.0); METHB 1.5 % (0.0-1.5); O2(CT) 17.9 mL/dL (15.0-23.0); O2HB 96.6 % (95.0-99.0); PCO2(98.6) 49 mmHg (35-45); PO2(98.6) 178 mmHg (60-100); SAMPLE BLOOD; SAO2 100.2 % (95.0-100.0); SRATE 12 BPM; THB 12.9 g/dL (11.5-17.4); TVOL 500 mL; pH(98.6) 7.43 (7.35-7.45)
[2019-06-25 04:39] LABS: MODALITY VENTILATOR
[2019-06-25 04:57] LABS: BASO# 0.05 X1000 (0.0-0.2); BASO% 0.4 % (0.0-0.8); EOS# 0.29 X1000 (0.0-0.7); EOS% 2.1 % (0.0-10.0); HEMATOCRIT 28.6 % (42.0-52.0); HEMOGLOBIN 8.8 g/dL (14.0-18.0); IMM GRAN# 0.15 X1000 (0.0-0.04); IMM GRAN% 1.1 % (0.0-0.5); LYMPH# 2.69 X1000 (1.2-3.4); LYMPH% 19.9 % (20.5-51.1); MCH 34.4 PG (27-31); MCHC 30.8 g/dL (33-37); MCV 111.7 FL (81-99); MONO# 1.78 X1000 (0.11-0.59); MONO% 13.1 % (1.7-9.3); MPV 10.6 FL (7.4-10.4); NEUT# 8.59 X1000 (1.4-6.5); NEUT% 63.4 % (42.2-75.2); PLT 199 X1000 (130-400); RBC 2.56 XMIL (4.7-6.1); RDW 13.7 % (11.5-14.5); WBC 13.55 X1000 (4.8-10.8)
[2019-06-25] MEDS: PROTONIX IV SCH (06:11)
[2019-06-25] MEDS: SODIUM CHLORIDE 0.9% INJ SCH (06:11)
--- NOTE | 2019-06-25 06:46 | Diag Imaging Result Doc PS360 ---
CHEST-PORTABLE - 06/25/2019 INDICATION: dyspnea COMPARISON: 06/24/2019 FINDINGS: There is a new left PICC line in good position in the mid SVC. Stable endotracheal tube and nasogastric tube in good position. There is been some improvement in aeration of the right lower lobe with better visualization of the right hemidiaphragm. Stable left lower lobe consolidation/effusion. Stable right upper lobe pneumonia as well. Heart size remains borderline. IMPRESSION: New left PICC line. Otherwise no change from prior. Electronically signed by Duran Parker 06/25/2019 6:43 AM
[2019-06-25] MEDS: COLACE LIQUID PO SCH (08:52)
[2019-06-25] MEDS: KEPPRA 1,000 MG in NS 100 ML IV SCH ×2 (08:53→21:55)
[2019-06-25] MEDS: MYCOSTATIN SUSP PO SCH ×2 (08:53→12:47)
[2019-06-25] MEDS: ZYVOX 600 MG/D5W 600 MG/300 ML IVPB IV SCH (08:53)
[2019-06-25 09:05] LABS: AGAP 9; BUN 14 mg/dL (8-22); CALCIUM 7.7 mg/dL (8.8-10.2); CHLORIDE 108 mmol/L (98-107); COSMO 287; CREATININE 0.3 mg/dL (0.7-1.2); ESTIMATED GFR > 60; GLUCOSE 100 mg/dL (70-104); POTASSIUM 3.9 mmol/L (3.5-5.1); SODIUM 144 mmol/L (136-145); TCO2 27 mmol/L (25-35)
--- NOTE | 2019-06-25 11:29 | INFECTIOUS DISEASE PROGRESS NO ---
DATE: 06/25/2019 PRESENT ILLNESS: The patient has a bilateral pneumonia. The patient has oral candidiasis. MEDICATIONS: This is the 8th day of treatment with aztreonam and Zyvox. The patient also is on nystatin swish and swallow. PHYSICAL EXAMINATION: Vital Signs: Temperature is 101 degrees, pulse 92, respirations 26, blood pressure 116/67. General: This is an ill-appearing, elderly male. He is intubated and sedated. He does not appear to be in any acute distress, however. Head, Eyes, Ears, Nose, and Throat: No drainage from the nose or ears. He has an orotracheal tube and an orogastric tube in place. Neck: No stiffness. Lungs: There were bilateral rhonchi. Cardiovascular: Heart rate is regular. Abdomen: Soft and did not appear to be tender. Neurologic: The patient is obtunded. He did not respond to verbal stimuli. He does not have a tremor. Integument: No rash. Extremities: The patient has a PICC in his left arm. The site is not erythematous or purulent. LAB AND X-RAY: CBC shows a white count of 13,550, hemoglobin 8.8, and platelet count 199,000. Creatinine is 0.3. GFR is greater than 60. AST is 43. The patient's blood gases show a pH of 7.43, a PO2 of 178, and a pCO2 of 49. Sputum culture grew yeast. Blood cultures are negative. Chest x-ray shows bilateral pneumonia, which has not changed. ASSESSMENT AND PLAN: The patient has pneumonia. For now, I plan to continue with Zyvox and aztreonam. COMORBIDITIES: He is elderly. He has a seizure disorder, prostate cancer, and a stroke in the past. He also is a cigarette smoker and he consumes alcoholic beverages. cc: Candido Menard MD
--- NOTE | 2019-06-25 12:39 | PROGRESS NOTE ---
DATE: 06/25/2019 LOCATION: ICU bed 6. SUBJECTIVE: Dr. Tsang saw Mr. Velasco earlier this week for Neurology. He had cardiopulmonary arrest, followed by unresponsiveness, and he developed some diffuse limb muscle jerking consistent with myoclonus. Myoclonus was noted to be less prominent yesterday. EEG showed generalized slowing and generalized discharges. He has had levetiracetam on board, with dose increased to 1000 mg every 12 hours (creatinine is 0.3). On exam today, I did not immediately see any twitching or other abnormal movement. He initially seemed to be sleeping. When I stimulated him, he turned his head slightly, and there were a few irregular muscle twitches consistent with myoclonus involving each arm. When he was not stimulated, the myoclonus seemed completely resolved. IMPRESSION: Global encephalopathy, much improved myoclonus, initial concern for seizure with no definite clinical evidence of seizure now. I would continue current levetiracetam dose and follow clinically. Further plans will depend on his clinical course. Eventually, we might need to consider further imaging and repeat electroencephalogram. Thank you for asking Neurology to see Mr. Velasco. cc: MD DAVID Johnson III
[2019-06-25] MEDS: THIAMINE 100 MG in NS 50 ML IV SCH (13:14)
--- NOTE | 2019-06-25 14:07 | PROGRESS NOTE ---
DATE: 06/25/2019 SUBJECTIVE: Patient continues poorly responsive on ventilator. OBJECTIVE: Blood pressure 122/68, heart rate 89, oxygen saturation 100% on ventilator. There is no significant jugular venous distention. Chest: Auscultation of the chest reveals coarse breath sounds bilaterally. Cardiac Exam: Reveals a regular rate and rhythm without appreciable murmur or gallop. There is no evidence of peripheral edema. LABORATORY DATA: Includes a white blood cell count of 13.55 hematocrit 28.6, hemoglobin 8.8, platelet count 199, sodium 144, potassium 3.9, chloride 108, carbon dioxide 27, BUN 14, creatinine 0.3. Glucose 100. IMPRESSION: 1. Status post cardiopulmonary arrest, with initial rhythm of pulseless electrical activity. Patient continues on ventilator for respiratory failure. 2. Suspect significant anoxic encephalopathy. 3. Respiratory failure. Post cardiopulmonary arrest. 4. Cardiomyopathy, probably ischemic in origin based on previous noninvasive evaluation and CT scan demonstrates significant coronary calcifications. 5. Chronic alcohol abuse. 6. Recent pneumonia and probable sepsis. RECOMMENDATIONS: 1. Continue supportive care. 2. Continue Lovenox 1 mg/kg subcutaneously q. 12 given history of DVT earlier this year and cardiopulmonary arrest. Pulmonary embolus not entirely excluded. 3. Prognosis poor for meaningful recovery. cc: Wei Mendoza MD
--- NOTE | 2019-06-25 14:19 | PROGRESS NOTE ---
DATE: 06/25/2019 INTERVAL HISTORY: Patient with less myoclonus, but no change in mental status. Remains largely unresponsive, except for withdrawal to noxious stimuli. Remains intubated and sedated. No acute events overnight. Long discussion with family about goals of care. They have made no final decisions yet, but are considering withdrawal of care if the patient's mental status does not improve in the near future. Did have some low-grade fevers overnight, up to 100.8. REVIEW OF SYSTEMS: Unable to obtain secondary to the patient's mental status. LABORATORY DATA: WBC 13.5, hemoglobin 8.8, hematocrit 28.6, platelets 199,000. ABG with pH 7.43, pCO2 of 49, PO2 of 178 on ventilator with 50% FiO2. Sodium 144, potassium 3.9, BUN 14, creatinine 0.3, calcium 7.7. OBJECTIVE: Vital Signs: T-max 100.8 degrees, pulse 89, respirations 25, blood pressure 122/68, O2 saturation 100% on ventilator. General: Remains intubated and sedated. No acute distress. HEENT: Normocephalic, atraumatic. Moist mucous membranes. Secretions less copious than previous. Cardiovascular: Regular rate and rhythm. No murmurs noted. Pulmonary: Still with fairly coarse breath sounds throughout, and diffuse rhonchi bilaterally. No wheezing. Good air entry. Abdomen: Soft, nontender, nondistended. Bowel sounds positive. Extremities: Peripheral pulses intact. No clubbing or cyanosis. Neurologic: Somewhat limited by mental status and intubation. Occasional nonpurposeful movement of all limbs. Withdraws to noxious stimuli, but no purposeful movement. Pupils equal, round, reactive to light. Significantly less myoclonus than previous. Psychiatric: The patient remains intubated and encephalopathic. ASSESSMENT AND PLAN: 1. Pneumonia. The patient remains intubated. Oxygenation is improving slowly. Appears to be of significant room to wean oxygen today. Failed spontaneous breathing trial yesterday, but will keep trying. Pulmonology following. Continue antibiotics with aztreonam and Zyvox. 2. Likely septic shock, likely secondary to aspiration pneumonia above. Has been off pressors for quite a while now. Antibiotics as above. 3. Encephalopathy. Significant concern for anoxic brain injury. The patient has been off sedation for several days, and while he does arouse somewhat, he remains entirely encephalopathic with no purposeful movements, no verbal response, and is completely noncooperative. Also some concern for possible seizure, although electroencephalogram failed to confirm that. He was having myoclonus that appears to be improved with adjustment in seizure medication by Neurology. Continue to monitor, but the longer he goes without any improvement in his mental status, the poorer his prognosis is. Will continue discussions with family. 4. Possible seizure disorder. Patient on increased dose of Keppra. Electroencephalogram without clear evidence of seizure, but myoclonus does appear to be somewhat improved on higher dose of Keppra. Monitor. 5. Alcohol abuse. Patient with history of alcohol abuse, but past the time line for alcohol withdrawal. 6. Hyponatremia, resolved. Monitor. 7. Anemia. Patient with slow, but steady decline in hemoglobin and hematocrit over the last several days. No signs or symptoms of bleeding. May be due to critical illness or medication induced. Will check iron studies and reticulocyte count, and continue to monitor blood counts. No need for transfusion right now. addendum: after further discussion, family has elected to make patient comfort measures only and withdraw care. will get morphine drip on board and then palliatively extubate. [facility]
[2019-06-25] MEDS ORDERED: NS IV ONE (14:58)
[2019-06-25] MEDS ORDERED: MORPHINE IV ONE (14:58)
[2019-06-25] MEDS ORDERED: ATIVAN IV PRN (15:05)
[2019-06-25] MEDS: ATROPINE 1 % OPHTH SOLN SL PRN (15:56)
[2019-06-25] MEDS ORDERED: NS IV PRN (18:00)
[2019-06-25] MEDS ORDERED: MORPHINE IV PRN (18:00)
[2019-06-26] MEDS: KEPPRA 1,000 MG in NS 100 ML IV SCH ×2 (08:54→22:24)
[2019-06-26] MEDS ORDERED: MORPHINE IV SCH (11:15)
[2019-06-26] MEDS ORDERED: NS IV SCH (11:15)
--- NOTE | 2019-06-26 12:20 | PROGRESS NOTE ---
DATE: 06/26/2019 LOCATION: ICU bed 6. OBJECTIVE: Mr. Velasco appeared to be sleeping as I approached the bedside. With moderate stimulation, he grunted and groaned a little bit, but did not communicate beyond that. I did not see any myoclonus or other abnormal movement. Limb tone is symmetric. Neck is supple. IMPRESSION: Global encephalopathy. No definite new findings. No clinical evidence of seizure. Myoclonus appears controlled. Concern continues for anoxic brain injury. Time will tell. No urgent suggestion today from Neurology standpoint. Thank you for asking us to see Mr. Velasco. cc: Maldonado Cannon III, MD [facility]
--- NOTE | 2019-06-26 14:32 | PROGRESS NOTE ---
DATE: 06/26/2019 INTERVAL HISTORY: The patient remains on comfort care. Myoclonus remains controlled. No obvious seizures. No change in mental status. Appears fairly comfortable on morphine drip. REVIEW OF SYSTEMS: Unable to obtain secondary to patient's mental status. PHYSICAL EXAMINATION: General: No acute distress on O2 with mask. HEENT: Normocephalic, atraumatic. Slightly dry mucous membranes. Cardiovascular: Regular rate and rhythm. No murmurs noted. Pulmonary: Coarse throughout with diffuse rhonchi. Approximately stable reasonable air entry. Abdomen: Soft, nontender, nondistended. Bowel sounds decreased but present. Extremities: Peripheral pulses intact. No clubbing or cyanosis. Neurologic: Limited by mental status, withdraws to noxious stimuli but otherwise unresponsive. No purposeful movement. Psychiatric: The patient remains entirely encephalopathic. Follows no commands. ASSESSMENT AND PLAN: Patient with respiratory failure, pneumonia, septic shock and encephalopathy with suspected anoxic brain injury. Family has elected to make him comfort measures only. Appears to be fairly comfortable on current morphine drip. Blood pressure remains on the low side but relatively stable. Oxygenation fairly stable on mask. As he does not appear to be experiencing a highly rapid decline, we will plan on moving him out to the floor so the patient's family can come and go more freely. If the patient remains stable, we may have to consider discharge on hospice.
[2019-06-26] MEDS: ATROPINE 1 % OPHTH SOLN SL PRN (22:25)
[2019-06-27] MEDS: TRANSDERM-SCOP TD SCH ×2 (07:48→13:17)
[2019-06-27] MEDS: KEPPRA 1,000 MG in NS 100 ML IV SCH (07:59)
[2019-06-27 15:14] VITALS: BP 136/77
[2019-06-27] MEDS: MORPHINE IV PRN (16:10)
--- NOTE | 2019-06-28 15:25 | DISCHARGE SUMMARY ---
ADMISSION DATE: 06/11/2019 DISCHARGE DATE: 06/27/2019 CONSULTS: Infectious Disease Dr. Menard, Neurology Dr. Cannon, Cardiology, Dr. Mendoza. PERTINENT STUDIES: Echocardiogram showing EF 35-40%, global hypokinesis. Venous Doppler small amount of chronic DVT in left popliteal vein but no acute clot. EEG with some generalized discharges which may be indicative of cortical irritability and moderate to severe generalized slowing without clear evidence of seizure . DISCHARGE DIAGNOSES: 1. Likely anoxic brain injury. 2. Pneumonia . 3. Septic shock. 4. Metabolic encephalopathy. 5. Alcohol abuse. 6. Hyponatremia. 7. Anemia. 8. Chronic systolic congestive heart failure. 9. Cardiac arrest. HOSPITAL COURSE: Patient presented initially with complaints of shortness of breath for 2 to 3 days. The dizziness and right arm pain so came for further evaluation. The patient on initial evaluation had elevated lactate some question of UTI and mild hypotension noted to have at that time dehydration and alcohol intoxication with likely alcohol abuse. However shortly after admission patient went into delirium tremens with severe agitation, delirium. He had to be restrained and required progressive amounts of benzodiazepines. Potentially because of aspiration related to his Delirium tremens, he developed pneumonia leading to acute hypoxic respiratory failure on top of baseline COPD. Then on 06/20 patient experienced cardiac arrest. He was coded for approximately 20 minutes with return of spontaneous circulation. He was intubated and placement of stent. He was in shock at that time required pressors for 3 to 4 days. Patient had a questionable history seizure disorder while on the ventilator, had myoclonus without aysha seizures and neurology was involved. They performed EEG which did show some spikes but no clear evidence of seizure. They did feel it was appropriate to put him on seizure medication, he was placed on Keppra and this was titrated up to 1 g b.i.d. which resolved myoclonus. During vent weaning trials patient's sedation was held but patient did not arouse. Even after myoclonus resolved and sedation was held entirely for several days patient did not become alert. After several days of this family eventually elected to make patient comfort care and to palliatively extubate. After palliative extubation the patient was roughly stable, kept comfortable with low-dose morphine drip. As patient did not appear to be decompensated rapidly he was set up with hospice at home. He remained entirely encephalopathic and only minimally responsive even to noxious stimuli after extubation. DISCHARGE DIET: None. DISCHARGE MEDICATIONS: Roxanol, scopolamine patch. FOLLOWUP AND PLAN: Patient discharging home with hospice care. TIME SPENT: Greater than 30 minutes spent arranging discharge and counseling patient's family. DAVID
== END 2019-06-27 17:09 | disposition hospice, home (50) | DRG 896 ==
LOC: P.ED 07:04 → P.MEDSURG 09:45 → SUATTDRO 09:45 → P.EDIPHOLD 06-12 19:48 → 2N 06-12 21:42 → 4N 06-18 11:49 → ICU 06-20 14:17 → 3N 06-26 12:49
PROVIDERS: ATTEND Internal Medicine